=== PATIENT | male | born 1935 | race Caucasian/White ===

== ENCOUNTER → 2019-10-22 10:10 | Outpatient (BNVA) | payer MEDICARE, OTHER, SELFPAY | PROVIDERS: Family Provider Family Medicine; PCP Family Medicine; Visit Provider Urology | DX: N39.9 Disorder of urinary system, unspecified (principal); N48.1 Balanitis; N47.1 Phimosis | CPT/HCPCS: 81001 ==

== ENCOUNTER 2019-12-18 11:47 | Inpatient (IN) | payer MEDICARE, OTHER, SELFPAY ==
[2019-12-18] VITALS (11 sets, daily range): BP systolic 144–175; BP diastolic 70–105; PULSE 74–99; RESP 16–19; TEMP 36.8–37.2; O2SAT 88–98; BMI 31.1
--- NOTE | 2019-12-18 12:03 | ED_ITS ---
Entered by Olena Olivera, acting as scribe for Khushbu Mckeon HPI - General Adult General: Chief complaint: General Medical Stated complaint: SHINGLES/ CONFUSION Time Seen by Provider: 12/18/19 11:59 Source: patient and RN notes reviewed Mode of arrival: EMS Limitations: altered mental status History of Present Illness: HPI narrative: 84 yo male presents to ED with complaints of a painful rash on the L side of his face. The patient is confused stating he has been evaluated by Hailey Ruiz (with [facility]) for shingles and was prescribed an anti-viral medication. Upon called Ms Joseph's office, it was confirmed that the patient has never been seen there. I called Dr Harman's (with [facility]) office, they confirmed the patient is seen there and was last seen in October. They are faxing information. The patient was last seen at [facility] on 12.13.2019 for a headache with and per the notes, the patient did not have a rash at that time and he was not prescribed anything. The patient said he is here today due to pain associated with the rash on the L side of his face. The patient states his son and daughter wanted patient to come to ED to be evaluated for shingles - he thinks. The patient is afebrile at this time. MD complaint: confusion, rash on L side of face Onset (ago): unknown Location: face (rash on L side) Radiation: non-radiation Severity: severe Quality: aching Pain Consistency: constant Relieving factors: none Exacerbating factors: none Associated symptoms: Reports confusion; Deny chest pain, diaphoresis, dyspnea, malaise, nausea, palpitations, syncope or vomiting Review of Systems General: Reports: other (negative unless marked) Const: Denies: fever, chills, body aches, fatigue, malaise or diaphoresis Eyes: Denies: change in vision or blurry vision ENMT: Denies: throat pain, painful swallowing, hoarseness, ear pain, ear discharge, Change in hearing or nasal discharge Card: Denies: chest pain, palpitations, irregular heart rhythm, syncope, pre- syncope, shortness of breath on exertion or shortness of breath when lying down Resp: Denies: shortness of breath, productive cough, non-productive cough, wheezing, coughing up blood or chest congestion GI: Denies: abdominal pain, nausea, vomiting, vomiting blood, coffee grounds in vomit, diarrhea, constipation, cramping, blood in stool or black tarry stool : Denies: flank pain, difficulty urinating, painful urination, urinary frequency, urinary urgency, decreased urine ouput, urinary incontinence or blood in urine Musc: Denies: neck pain, back pain, extremity pain, extremity swelling, joint pain, joint swelling, joint warmth or joint stiffness Skin/Breast: Denies: skin tenderness or yellow skin Neuro: Reports: confusion Endo: Denies: excessive thirst, tired all the time, cold intolerance, excessive sweating, flushing or hot flashes Miah/Lymph: Denies: easy bruising, easy bleeding, petechiae or enlarged lymph nodes All/Imm: Denies: hives, throat swelling, tongue swelling, facial swelling or acute wheezing PFSH ED PFSH: Social History Smoking and tobacco status: former smoker Alcohol intake: never Adopted: No Caregiver/support person: No Lives independently: No Household members: spouse Marital status: Current occupational status: retired Physical Exam Const: COMMON NORMALS: no apparent distress, healthy appearing and well nourished GENERAL APPEARANCE: cooperative, well kempt and well developed ORIENTATION/CONSCIOUSNESS: Yes awake HENMT: COMMON NORMALS: normocephalic, head/scalp atraumatic, hearing grossly normal bilaterally, external ears normal, EAC's normal, external nose normal and moist oral mucous membranes HEAD & SCALP: normal to inspection, normocephalic and atraumatic FACE & SINUS: face symmetric NOSE: external nose normal and nares normal EXTERNAL EAR: Yes external ears normal EXTERNAL AUDITORY CANAL: EAC's normal MOUTH: oral and palatal mucosa normal and tongue normal Eye: COMMON NORMALS: PERRL, EOMs intact bilaterally and no scleral icterus GENERAL EYE: normal light reflex and other (Left eye with conjunctival injection. Fluorescein staining reveals no corneal uptake.) CONJUNCTIVA: Yes conjunctivae normal SCLERA: sclerae normal CORNEA: Yes corneas normal PUPIL: Yes PERRL DIRECT OPHTHALMOSCOPY: Yes normal light reflex Neck/C-Spine: COMMON NORMALS: full ROM, no lymphadenopathy, supple, no meningeal signs and no JVD GENERAL: Yes normal visual inspection and Yes trachea midline CERVICAL SPINE: Yes cervical ROM normal Chest: COMMONS NORMALS: inspection of chest normal and palpation of chest normal Resp: COMMON NORMALS: normal respiratory effort, no retractions, no use of accessory muscles and clear to auscultation bilaterally EFFORT & INSPECTION: Yes able to speak in complete sentences AUSCULTATION: clear to auscultation bilaterally Cardio: COMMON NORMALS: no JVD, regular rate, regular rhythm, S1 normal heart sound, S2 normal heart sound, no gallops, no clicks, no murmurs and no rub JUGULAR VENOUS DISTENTION: no JVD RATE: regular rate RHYTHM: regular rhythm HEART SOUNDS: S1 normal and S2 normal GI: COMMON NORMALS: soft to palpation, non-tender, no hepatosplenomegaly and no masses INSPECTION: Yes normal to inspection PALPATION: Yes soft and Yes no hepatosplenomegaly : COMMON NORMALS: Yes no CVA tenderness BLADDER/KIDNEY EXAM: Yes no CVA tenderness Back/Pelvis: COMMON NORMALS: no CVA tenderness, thoracic and lumbar spine normal to inspection, no thoracic nor lumbar tenderness and thoraco-lumbar ROM normal Extremity: COMMON NORMALS: normal to inspection, full ROM, normal capillary refill, no joint enlargement, no clubbing, cyanosis or edema and no calf tenderness Neuro: COMMON NORMALS: CN's II-XII intact bilaterally, moves all extremities, no focal motor deficits and no sensory deficits noted MENINGEAL SIGNS: Yes no meningeal signs Psych: APPEARANCE: Yes well kempt Skin: COMMON NORMALS: skin turgor normal, no jaundice, no petechiae and no mottling GENERAL SKIN EXAM: turgor normal RASHES: rashes noted (Shingles type rash noted to first trigeminal dermatome of the left side of the face.) Procedures Lumbar Puncture Patient Position: upright Skin Prep: Povidone-Iodine 1% Local Anesthetic: lidocaine 1% and with epi Amount of anesthesia used (mL): 5 Spinal Needle Gauge: 20G Interspace Used: L4-L5 Complications: unable to obtain CSF Course Vital Signs: Vital signs: Vital Signs Temperature 98.3 F 12/18/19 11:52 Pulse Rate 74 12/18/19 17:44 Respiratory Rate 18 12/18/19 17:44 Blood Pressure 163/105 12/18/19 17:44 Pulse Oximetry 98 12/18/19 17:44 MDM - General Adult MDM Narrative: Medical decision making narrative: The case was reviewed in its completeness with Dr. Ellison. He agrees with admission for coverage of viral encephalitis as well as meningitis with antimicrobials. The patient is clinically stable. I will go ahead and admit the patient to the floor. Lab Data: Labs: Lab Results 12/18/19 12/18/19 12/18/19 Range/Units 12:41 12:55 12:55 WBC 12.8 H (4.0-10.0) 10^3/ uL RBC 4.43 (4.1-5.3) 10^6/u L Hgb 12.9 (11.7-16.6) g/dL Hct 40.4 L (42.0-52.0) % MCV 91.2 (80-94) fL MCH 29.1 (28.0-34.0) pg MCHC 31.9 (30.0-36.0) g/dL RDW 13.2 (12.1-15.1) % Plt Count 342 (130-400) 10^3/c mm MPV 9.6 (7.4-10.4) fL Neut % (Auto) 65.6 % Lymph % (Auto) 20.8 % Eagle % (Auto) 12.2 % Eos % (Auto) 0.2 % Baso % (Auto) 0.9 % Neut # (Auto) 8.4 H (1.8-7.7) 10^3/u L Lymph # (Auto) 2.7 (0.8-4.8) 10^3/u L Eagle # (Auto) 1.6 H (0.2-0.9) 10^3/u L Eos # (Auto) 0.0 (0.0-0.8) 10^3/u L Baso # (Auto) 0.1 (0.0-0.1) 10^3/u L Nucleated RBC % (a uto) 0 % Nucleated RBCs # 0.0 /100WBC PT (10.5-13.3) SECO NDS INR (0.8-1.2) APTT (23.9-36.7) SECO NDS Sodium 128 L (136-145) mmol/L Potassium 3.7 (3.5-5.1) mmol/L Chloride 91 L (98-107) mmol/L Carbon Dioxide 23 (22-29) mmol/L Anion Gap 17.7 (5-19) BUN 23 (8-23) mg/dL Creatinine 1.0 (0.7-1.2) mg/dL Glucose 167 H (65-115) mg/dL Calculated Osmolal ity 267 L (285-295) mOsm/k g Lactic Acid (0.5-2.2) mmol/L Calcium 8.8 (8.5-10.5) mg/dL Total Bilirubin 0.3 (0.15-1.2) mg/dL AST 60 H (0-40) U/L ALT 22 (0-41) U/L Alkaline Phosphata se 61 (40-130) IU/L Troponin T Baselin e (0-15) ng/mL Troponin T 120 Min [place] (0-15) ng/mL Delta Troponin T (0-10) ABS# Total Protein 7.1 (6.6-8.7) g/dL Albumin 3.3 L (3.5-5.2) g/dL Globulin 3.8 (1.3-4.6) g/dL CSF Appearance (CLEAR) CSF Color (COLORLESS) CSF WBC (0-5) /uL CSF RBC (0-0) 10^3/uL CSF Mononuclear # Auto (50-90) 10^3/uL CSF Mononuclear WB Cs % (50-90) % CSF Polynuclear WB Cs # (0-10) 10^3/uL CSF Polynuclear WB Cs % (0-10) % CSF Diff Comment CSF Glucose (40-70) mg/dL Influenza Type A A g Negative (Negative) POC Influenza B Ag Negative (Negative) 12/18/19 12/18/19 12/18/19 Range/Units 12:55 12:55 13:13 WBC (4.0-10.0) 10^3/ uL RBC (4.1-5.3) 10^6/u L Hgb (11.7-16.6) g/dL Hct (42.0-52.0) % MCV (80-94) fL MCH (28.0-34.0) pg MCHC (30.0-36.0) g/dL RDW (12.1-15.1) % Plt Count (130-400) 10^3/c mm MPV (7.4-10.4) fL Neut % (Auto) % Lymph % (Auto) % Eagle % (Auto) % Eos % (Auto) % Baso % (Auto) % Neut # (Auto) (1.8-7.7) 10^3/u L Lymph # (Auto) (0.8-4.8) 10^3/u L Eagle # (Auto) (0.2-0.9) 10^3/u L Eos # (Auto) (0.0-0.8) 10^3/u L Baso # (Auto) (0.0-0.1) 10^3/u L Nucleated RBC % (a uto) % Nucleated RBCs # /100WBC PT 15.00 H (10.5-13.3) SECO NDS INR 1.15 (0.8-1.2) APTT 31.8 (23.9-36.7) SECO NDS Sodium (136-145) mmol/L Potassium (3.5-5.1) mmol/L Chloride (98-107) mmol/L Carbon Dioxide (22-29) mmol/L Anion Gap (5-19) BUN (8-23) mg/dL Creatinine (0.7-1.2) mg/dL Glucose (65-115) mg/dL Calculated Osmolal ity (285-295) mOsm/k g Lactic Acid 1.6 (0.5-2.2) mmol/L Calcium (8.5-10.5) mg/dL Total Bilirubin (0.15-1.2) mg/dL AST (0-40) U/L ALT (0-41) U/L Alkaline Phosphata se (40-130) IU/L Troponin T Baselin e 28 H (0-15) ng/mL Troponin T 120 Min [place] (0-15) ng/mL Delta Troponin T (0-10) ABS# Total Protein (6.6-8.7) g/dL Albumin (3.5-5.2) g/dL Globulin (1.3-4.6) g/dL CSF Appearance (CLEAR) CSF Color (COLORLESS) CSF WBC (0-5) /uL CSF RBC (0-0) 10^3/uL CSF Mononuclear # Auto (50-90) 10^3/uL CSF Mononuclear WB Cs % (50-90) % CSF Polynuclear WB Cs # (0-10) 10^3/uL CSF Polynuclear WB Cs % (0-10) % CSF Diff Comment CSF Glucose (40-70) mg/dL Influenza Type A A g (Negative) POC Influenza B Ag (Negative) 12/18/19 12/18/19 12/18/19 Range/Units 16:07 16:09 16:42 WBC (4.0-10.0) 10^3/ uL RBC (4.1-5.3) 10^6/u L Hgb (11.7-16.6) g/dL Hct (42.0-52.0) % MCV (80-94) fL MCH (28.0-34.0) pg MCHC (30.0-36.0) g/dL RDW (12.1-15.1) % Plt Count (130-400) 10^3/c mm MPV (7.4-10.4) fL Neut % (Auto) % Lymph % (Auto) % Eagle % (Auto) % Eos % (Auto) % Baso % (Auto) % Neut # (Auto) (1.8-7.7) 10^3/u L Lymph # (Auto) (0.8-4.8) 10^3/u L Eagle # (Auto) (0.2-0.9) 10^3/u L Eos # (Auto) (0.0-0.8) 10^3/u L Baso # (Auto) (0.0-0.1) 10^3/u L Nucleated RBC % (a uto) % Nucleated RBCs # /100WBC PT (10.5-13.3) SECO NDS INR (0.8-1.2) APTT (23.9-36.7) SECO NDS Sodium (136-145) mmol/L Potassium (3.5-5.1) mmol/L Chloride (98-107) mmol/L Carbon Dioxide (22-29) mmol/L Anion Gap (5-19) BUN (8-23) mg/dL Creatinine (0.7-1.2) mg/dL Glucose (65-115) mg/dL Calculated Osmolal ity (285-295) mOsm/k g Lactic Acid (0.5-2.2) mmol/L Calcium (8.5-10.5) mg/dL Total Bilirubin (0.15-1.2) mg/dL AST (0-40) U/L ALT (0-41) U/L Alkaline Phosphata se (40-130) IU/L Troponin T Baselin e (0-15) ng/mL Troponin T 120 Min [place] 28.73 H (0-15) ng/mL Delta Troponin T 0.73 (0-10) ABS# Total Protein (6.6-8.7) g/dL Albumin (3.5-5.2) g/dL Globulin (1.3-4.6) g/dL CSF Appearance Clear Clear (CLEAR) CSF Color Xanthocromic Colorless (COLORLESS) CSF WBC 293 H 274 H (0-5) /uL CSF RBC 0 0 (0-0) 10^3/uL CSF Mononuclear # Auto 0.288 L 0.271 L (50-90) 10^3/uL CSF Mononuclear WB Cs % 98 H 99 H (50-90) % CSF Polynuclear WB Cs # 0.005 0.003 (0-10) 10^3/uL CSF Polynuclear WB Cs % 2 1 (0-10) % CSF Diff Comment Yes Yes CSF Glucose 83 H (40-70) mg/dL Influenza Type A A g (Negative) POC Influenza B Ag (Negative) Imaging Data^: CXR: Radiologist's impression: [place] [address] XRay Report Signed Patient: Bud Ivy #: [id number] : 5Acct#:[id number] Age/Sex: 84 / MADM Date: 12/18/19 Loc: ERRoom/Bed: Attending Dr: Ordering Provider/Ordering MD: Khushbu Mckeon DO Date of Service: 12/18/19 Procedure(s): XR chest 1V portable [id number] Accession Number(s): [id number] Report Number: [id number] WS: [id number] PORTABLE CHEST HISTORY: cough COMPARISON: None available. Mild emphysema. No pneumonia. No pleural effusion or pneumothorax. Cardiac size: Mildly enlarged cardiac silhouette. Mediastinum/Aorta: Ectatic partially calcified aorta. No osseous abnormality seen. XR/XR chest 1V portable [id number] IMPRESSION: Chronic emphysema with partially calcified aorta. Dictated By:Alley Diaz DO Signed By:Alley Diaz DOSigned Date/Time:12/18/19 CT Head: Radiologist's impression: [facility] [address] [place] [address] CT Scan Report Signed Patient: Bud Ivy #: [id number] : 5Acct#:[id number] Age/Sex: 84 / MADM Date: 12/18/19 Loc: ERRoom/Bed: Attending Dr: Ordering Provider/Ordering MD: Khushbu Mckeon DO Date of Service: 12/18/19 Procedure(s): CT head wo con* [id number] Accession Number(s): [id number] Report Number: [id number] WS: [id number] CT HEAD NONCONTRAST HISTORY: CONDE/AMS TECHNIQUE: Contiguous axial imaging performed through the brain in 2.5 mm imaging. Bone and soft tissue windows. Sagittal and coronal reformats reviewed. All CT scans at [facility] use at least one of these dose optimization techniques: automated exposure control; mA and/or kV adjustment per patient size (includes targeted exams where dose is matched to clinical indication); or iterative reconstruction. DLP: 888.04 mGy.cm COMPARISON: None available. No acute intracranial hemorrhage, midline shift or mass effect. Moderate atrophy and chronic ischemic disease. No evidence for an infarct. Walsh- white matter differentiation remains normal. Bilateral mild cerebellar atrophy. Ventricles: Normal size with no hydrocephalus. There are small filling defects in the RIGHT transverse sinus. These may be arachnoid granulations. Partial thrombus may appear similar. The remaining dural venous sinuses are normally attenuated. Paranasal sinuses: Mild mucoperiosteal thickening in the ethmoid air cells. No air-fluid levels. Marked deviation of the nasal septum to the LEFT. Mastoid air cells: Well pneumatized. Calvarium and scalp: Skull is intact with no soft tissue edema or swelling. CT/CT head wo con* [id number] IMPRESSION: 1. Cerebral atrophy and chronic ischemic disease. 2. Small filling defects in the RIGHT transverse sinus. There is no evidence for a venous infarct. Filling defects may be thrombosis or arachnoid granulations. For further evaluation CT venous angiogram can be obtained. Dictated By:Alley Diaz DO Signed By:Alley Diaz DOSigned Date/Time:12/18/[address]: Radiologist's impression: [facility] [address] [place] [address] CT Scan Report Signed Patient: Bud Ivy #: [id number] : 5Acct#:[id number] Age/Sex: 84 / MADM Date: 12/18/19 Loc: ERRoom/Bed: Attending Dr: Ordering Provider/Ordering MD: Khushbu Mckeon DO Date of Service: 12/18/19 Procedure(s): CT angio headneck* [id number] Accession Number(s): [id number] Report Number: [id number] WS: [id number] CT ANGIOGRAM CEREBRAL (arteries and veins) AND CAROTID ARTERIES HISTORY: HEADACHE TECHNIQUE: CT angiogram is performed of the carotid and cerebral arteries. During arterial injection imaging is obtained from the skull vertex to the aortic arch in 1.25 mm imaging. Coronal and sagittal reformats are submitted. Additional multi planar reformats of the carotid and cerebral arteries are submitted, MIP imaging also reviewed. NASCET criteria utilized. All CT scans at [facility] use at least one of these dose optimization techniques: au tomated exposure control; mA and/or kV adjustment per patient size (includes targeted exams where dose is matched to clinical indication); or iterative reconstruction. CONTRAST: Omnipaque 350; 95 mL IV. DLP: 2307.66 mGy.cm COMPARISON: Noncontrast CT head 12/18/2019 Carotid Angiogram: Right carotid: Common carotid artery: Arises normally from the innominate artery. No significant plaque or stenosis. Internal carotid artery: Mild calcified plaque at the bifurcation. Mild intimal thickening. External carotid artery: Patent. Left carotid: Common carotid artery: Arises normally from the aorta. No significant plaque or stenosis. Internal carotid artery: Moderate calcified plaque at the bifurcation. External carotid artery: Patent. Right vertebral artery: Unremarkable. Left vertebral artery: Very small caliber LEFT vertebral artery. LEFT vertebral artery does arise from the aortic arch. Subclavian arteries: No stenosis or significant abnormality. Upper thorax: Mild pleural thickening at the RIGHT apex. Dilatation of the upper esophagus. Thyroid gland: Normal. Osseous structures: Advanced degenerative changes in the cervical spine. CEREBRAL ANGIOGRAM: Intracranial vertebral arteries: Small caliber distal LEFT vertebral artery. Basilar artery is intact. Basilar artery: No significant stenosis or occlusion. No aneurysm. Intracranial Internal carotid arteries: Mild calcified plaque. Middle cerebral arteries: Normal. Anterior cerebral arteries and ACOM: Normal. Posterior cerebral arteries and PCOM's: Normal. Good enhancement of the dural venous sinuses. The well-rounded filling defects noted in the RIGHT transverse sinus are consistent with arachnoid granulations. There are additional filling defects in the LEFT transverse sinus from arachnoid granulations. No deep venous thrombosis. Mastoid air cells: Normal. Paranasal sinuses: Normal. Calvarium: Normal. CT/CT angio headneck* [id number] IMPRESSION: 1. 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 No deep venous thrombosis. 2. No significant carotid artery stenosis. Small amount of calcified plaque at the bifurcations. 3. Unremarkable robinson of Oliveira. 4. Small caliber LEFT vertebral artery arises from the aortic arch. Dictated By:Alley Diaz DO Signed By:Alley Diaz DOSigned Date/Time:12/18/19 Other Imaging: Radiologist's impression: [address] [place] [address] Fluoroscopy Report Signed Patient: Bud Ivy #: [id number] : 5Acct#:[id number] Age/Sex: 84 / MADM Date: 12/18/19 Loc: ERRoom/Bed: Attending Dr: Ordering Provider/Ordering MD: Khushbu Mckeon DO Date of Service: 12/18/19 Procedure(s): FL guided lumbarpuncture [id number] Accession Number(s): [id number] Report Number: [id number] WS: [id number] LUMBAR PUNCTURE UNDER FLUOROSCOPY: OBTAIN CSF FOR ANALYSIS HISTORY: AMS COMPARISON: None available. FLUOROSCOPY TIME: 0.5 minutes. Procedure, complications, and risk and benefits explained to the patient. Consent was obtained. Recent laboratory work and medication are reviewed prior to procedure. Skin over the lumbar is cleansed with ChloraPrep and anesthetized with 1% buffered lidocaine. Access into the thecal sac is achieved. CSF is removed in a sterile manner and placed in the sterile tubes. Approximately 12 ml is removed without difficulty. No complications are encountered. CSF this into the laboratory for analysis as requested. FL/FL guided lumbarpuncture [id number] IMPRESSION: Uncomplicated lumbar puncture for CSF. CSF set for analysis as requested by Dr. Mckeon Dictated By:Alley Diaz DO Signed By:Alley Diaz DOSigned Date/Time:12/18/19 Discharge Plan Discharge Patient Disposition: Admitted As Inpatient Clinical Impression: Encephalitis Condition: Stable Prescriptions: No Action lidocaine (PF) 10 mg/mL (1 %) solution 6 ml SUBCUT ONCE Qty: 1 RF: 0 glimepiride 1 mg tablet 1 mg PO QDAY RF: 0 metformin 500 mg tablet 500 mg PO BID RF: 0 alprazolam 0.5 mg tablet 0.5 mg PO .prn RF: 0 docusate sodium [Stool Softener] 100 mg capsule 100 mg PO QDAY RF: 0 venlafaxine 37.5 mg tablet 37.5 mg PO QDAY RF: 0 atorvastatin 20 mg tablet 20 mg PO QDAY RF: 0 zolpidem [Ambien] 5 mg tablet 5 mg PO .COMPLEX RF: 0 hydrocodone-acetaminophen 10-325 mg tablet 1 tab PO .prn RF: 0 Restasis MultiDose 0.05 % drops 1 drop ophthalmic (eye) QDAY RF: 0 nystatin 100,000 unit/gram cream 1 applic TOPICAL .prn RF: 0 oxybutynin chloride 15 mg tablet extended release 24hr 15 mg PO QDAY Qty: 30 RF: 2 Referrals: Shamika Harman DO [Primary Care Provider] - Coding Level of Care Code ED [employer] for Chg Fwd Exam Comprehensive The documentation recorded by the Jarod berkowitz Valerie R, accurately reflects the service I personally performed and the decisions made by Linda dietz Eli N Dec 18, 2019 11:47
--- NOTE | 2019-12-18 12:09 | XR_ITS ---
WS: [id number] PORTABLE CHEST HISTORY: cough COMPARISON: None available. Mild emphysema. No pneumonia. No pleural effusion or pneumothorax. Cardiac size: Mildly enlarged cardiac silhouette. Mediastinum/Aorta: Ectatic partially calcified aorta. No osseous abnormality seen. XR/XR chest 1V portable [id number] IMPRESSION: Chronic emphysema with partially calcified aorta.
--- NOTE | 2019-12-18 12:10 | ECG_ITS ---
Measurements Intervals [place] Rate: 85 P: 33 WA: 160 QRS: 7 QRSD: 142 T: 23 QT: 410 QTc: 490 SINUS RHYTHM POSSIBLE LEFT ATRIAL ENLARGEMENT [-0.1mV P WAVE IN V1/V2] RIGHT BUNDLE BRANCH BLOCK [120+ ms QRS DURATION, UPRIGHT V1, 40+ ms S IN I/aVL/V4/V5/V6] No previous ECG available for comparison Electronically Signed On 12-19-2019 9:40:16 CDT by Teagan Andersen M.D. [email or web address]
--- NOTE | 2019-12-18 12:10 | CT_ITS ---
WS: [id number] CT HEAD NONCONTRAST HISTORY: CONDE/AMS TECHNIQUE: Contiguous axial imaging performed through the brain in 2.5 mm imaging. Bone and soft tiss ue windows. Sagittal and coronal reformats reviewed. All CT scans at [facility] use at ast one of these dose optimization techniques: automated exposure control; mA and/or kV adjustment pe r patient size (includes targeted exams where dose is matched to clinical indication); or iterative r econstruction. DLP: 888.04 mGy.cm COMPARISON: None available. No acute intracranial hemorrhage, midline shift or mass effect. Moderate atrophy and chronic ischemic disease. No evidence for an infarct. Walsh-white matter differen tiation remains normal. Bilateral mild cerebellar atrophy. Ventricles: Normal size with no hydrocephalus. There are small filling defects in the RIGHT transverse sinus. These may be arachnoid granulations. P artial thrombus may appear similar. The remaining dural venous sinuses are normally attenuated. Paranasal sinuses: Mild mucoperiosteal thickening in the ethmoid air cells. No air-fluid levels. Alex ed deviation of the nasal septum to the LEFT. Mastoid air cells: Well pneumatized. Calvarium and scalp: Skull is intact with no soft tissue edema or swelling. CT/CT head wo con* [id number] IMPRESSION: 1. Cerebral atrophy and chronic ischemic disease. 2. Small filling defects in the RIGHT transverse sinus. There is no evidence f or a venous infarct. Filling defects may be thrombosis or arachnoid granulation s. For further evaluation CT venous angiogram can be obtained.
[2019-12-18] MEDS: sodium chloride 0.9% 1,000 ML 100 ML IV (12:18)
--- NOTE | 2019-12-18 12:53 | CT_ITS ---
WS: [id number] CT ANGIOGRAM CEREBRAL (arteries and veins) AND CAROTID ARTERIES HISTORY: HEADACHE TECHNIQUE: CT angiogram is performed of the carotid and cerebral arteries. During arterial injection imaging is obtained from the skull vertex to the aortic arch in 1.25 mm imaging. Coronal and sagittal reformats are submitted. Additional multi planar reformats of the carotid and cerebral arteries are submitted, MIP imaging also reviewed. NASCET criteria utilized. All CT scans at [facility] use at least one of these dose optimization techniques: automated exposure control; mA and/or kV ad justment per patient size (includes targeted exams where dose is matched to clinical indication); or iterative reconstruction. CONTRAST: Omnipaque 350; 95 mL IV. DLP: 2307.66 mGy.cm COMPARISON: Noncontrast CT head 12/18/2019 Carotid Angiogram: Right carotid: Common carotid artery: Arises normally from the innominate artery. No significant plaque or stenosis. Internal carotid artery: Mild calcified plaque at the bifurcation. Mild intimal thickening. External carotid artery: Patent. Left carotid: Common carotid artery: Arises normally from the aorta. No significant plaque or stenosis. Internal carotid artery: Moderate calcified plaque at the bifurcation. External carotid artery: Patent. Right vertebral artery: Unremarkable. Left vertebral artery: Very small caliber LEFT vertebral artery. LEFT vertebral artery does arise fro m the aortic arch. Subclavian arteries: No stenosis or significant abnormality. Upper thorax: Mild pleural thickening at the RIGHT apex. Dilatation of the upper esophagus. Thyroid gland: Normal. Osseous structures: Advanced degenerative changes in the cervical spine. CEREBRAL ANGIOGRAM: Intracranial vertebral arteries: Small caliber distal LEFT vertebral artery. Basilar artery is intact . Basilar artery: No significant stenosis or occlusion. No aneurysm. Intracranial Internal carotid arteries: Mild calcified plaque. Middle cerebral arteries: Normal. Anterior cerebral arteries and ACOM: Normal. Posterior cerebral arteries and PCOM's: Normal. Good enhancement of the dural venous sinuses. The well-rounded filling defects noted in the RIGHT tra nsverse sinus are consistent with arachnoid granulations. There are additional filling defects in the LEFT transverse sinus from arachnoid granulations. No deep venous thrombosis. Mastoid air cells: Normal. Paranasal sinuses: Normal. Calvarium: Normal. CT/CT angio headneck* [id number] IMPRESSION: 1. Bilateral filling defects in the transverse sinuses consistent with arachno id granulations. No deep venous thrombosis. 2. No significant carotid artery stenosis. Small amount of calcified plaque a t the bifurcations. 3. Unremarkable crooked [place] of [place]. 4. Small caliber LEFT vertebral artery arises from the aortic arch.
[2019-12-18 13:07] LABS: Basophils # 0.1 10^3/uL (0.0-0.1); Basophils % 0.9 %; Eosinophils % 0.2 %; Hematocrit 40.4 % (42.0-52.0); Hemoglobin 12.9 g/dL (11.7-16.6); Lymphocytes # 2.7 10^3/uL (0.8-4.8); Lymphocytes % 20.8 %; Mean Corpuscular HGB Conc 31.9 g/dL (30.0-36.0); Mean Corpuscular Hemoglobin 29.1 pg (28.0-34.0); Mean Corpuscular Volume 91.2 fL (80-94); Mean Platelet Volume 9.6 fL (7.4-10.4); Monocytes # 1.6 10^3/uL (0.2-0.9); Monocytes % 12.2 %; Neutrophils # 8.4 10^3/uL (1.8-7.7); Neutrophils % 65.6 %; Nucleated Red Blood Cells % 0 %; Platelet Count 342 10^3/cmm (130-400); Red Blood Count 4.43 10^6/uL (4.1-5.3); Red Cell Distribution Width 13.2 % (12.1-15.1); White Blood Count 12.8 10^3/uL (4.0-10.0)
[2019-12-18 13:10] LABS: Influenza A by IFA Negative (Negative); Influenza B by IFA Negative (Negative)
[2019-12-18 13:22] LABS: Alanine Aminotransferase 22 U/L (0-41); Albumin Level 3.3 g/dL (3.5-5.2); Alkaline Phosphatase 61 IU/L (40-130); Anion Gap 17.7 (5-19); Aspartate Amino Transferase 60 U/L (0-40); Blood Urea Nitrogen 23 mg/dL (8-23); Calcium 8.8 mg/dL (8.5-10.5); Carbon Dioxide 23 mmol/L (22-29); Chloride 91 mmol/L (98-107); Creatinine Clr Calc Pharmacy 68.6703; Globulin 3.8 g/dL (1.3-4.6); Glucose 167 mg/dL (65-115); Osmolality Calculated 267 mOsm/kg (285-295); Potassium 3.7 mmol/L (3.5-5.1); Sodium 128 mmol/L (136-145); Total Bilirubin 0.3 mg/dL (0.15-1.2); Total Protein 7.1 g/dL (6.6-8.7)
[2019-12-18 13:23] LABS: Lactic Sepsis W/Reflex 1.6 mmol/L (0.5-2.2)
[2019-12-18] MEDS: iohexol 350 mg/mL 100 mL Btl IV (13:43)
[2019-12-18] MEDS: fluorescein 1 mg Strip EYE-LEFT (13:53)
[2019-12-18 13:54] LABS: INR 1.15 (0.8-1.2); Partial Thromboplastin Time 31.8 SECONDS (23.9-36.7)
[2019-12-18] MEDS: eye irrigation 30 mL Btl EYE-BOTH (13:54)
--- NOTE | 2019-12-18 14:42 | FL_ITS ---
WS: [id number] LUMBAR PUNCTURE UNDER FLUOROSCOPY: OBTAIN CSF FOR ANALYSIS HISTORY: AMS COMPARISON: None available. FLUOROSCOPY TIME: 0.5 minutes. Procedure, complications, and risk and benefits explained to the patient. Consent was obtained. Recen t laboratory work and medication are reviewed prior to procedure. Skin over the lumbar is cleansed with ChloraPrep and anesthetized with 1% buffered lidocaine. Access into the thecal sac is achieved. CSF is removed in a sterile manner and placed in the sterile tubes. Approximately 12 ml is removed without difficulty. No complications are encountered. CSF this into the laboratory for analysis as requested. FL/FL guided lumbarpuncture [id number] IMPRESSION: Uncomplicated lumbar puncture for CSF. CSF set for analysis as requested by Dr. Mckeon
[2019-12-18] MEDS: morphine 4 mg/mL SDV 1 mL IVP ×2 (15:05→19:17)
[2019-12-18 16:51] LABS: Troponin(5th) Baseline 28 ng/mL (0-15)
[2019-12-18 17:04] LABS: Troponin 5 2HR 28.73 ng/mL (0-15); Troponin 5 2HR Delta 0.73 ABS# (0-10)
[2019-12-18 17:41] LABS: CSF Mononuclear # 0.271 10^3/uL (50-90); Glucose CSF 83 mg/dL (40-70); Mononuclear WBC CSF % 99 % (50-90); Polynuclear Cells ,CSF # 0.003 10^3/uL (0-10); Polynuclear WBC CSF % 1 % (0-10); Red Blood Cell CSF 0 10^3/uL (0-0)
[2019-12-18 17:45] LABS: CSF Mononuclear # 0.288 10^3/uL (50-90); Mononuclear WBC CSF % 98 % (50-90); Polynuclear Cells ,CSF # 0.005 10^3/uL (0-10); Polynuclear WBC CSF % 2 % (0-10); Red Blood Cell CSF 0 10^3/uL (0-0)
[2019-12-18 17:53] LABS: Appearance CSF CLEAR (CLEAR); White Blood Cell CSF 274 /uL (0-5)
[2019-12-18 17:54] LABS: Color CSF COLORLESS (COLORLESS); Pathology Referral Yes
[2019-12-18 17:55] LABS: Appearance CSF CLEAR (CLEAR); Color CSF XANTHOCROMIC (COLORLESS); Pathology Referral Yes; White Blood Cell CSF 293 /uL (0-5)
[2019-12-18 18:25] LABS: Bilirubin Urine Neg (NEGATIVE); Blood Urine 2+ (Negative); Glucose Urine UA Norm (Normal); Ketones Urine Negative (Negative); Leukocyte Esterase Urine Negative (Negative); Nitrate Urine Negative (Negative); Protein Urine Trace (Negative); RBC Urine 0-4 /hpf (0-2); Squamous Epithelial Cell Urine 0-4 (0-5); Urine Appearance Clear (CLEAR); Urine Color Yellow (Yellow); Urobilinogen Urine Norm (Negative); pH Urine 5 (5-7)
[2019-12-18 18:26] LABS: Bacteria Urine TRACE
--- NOTE | 2019-12-18 18:30 | ECG_ITS ---
Measurements Intervals Universal Rate: 89 P: 31 MD: 146 QRS: -4 QRSD: 150 T: 33 QT: 408 QTc: 497 SINUS RHYTHM WITH OCCASIONAL SUPRAVENTRICULAR AND VENTRICULAR PREMATURE COMPLEXES POSSIBLE LEFT ATRIAL ENLARGEMENT [-0.1mV P WAVE IN V1/V2] RIGHT BUNDLE BRANCH BLOCK [120+ ms QRS DURATION, UPRIGHT V1, 40+ ms S IN I/aVL/V4/V5/V6] No previous ECG available for comparison Electronically Signed On 12-19-2019 9:47:37 CDT by Teagan Andersen M.D. [id number]
--- NOTE | 2019-12-18 18:48 | PM.HP ---
Providers/Chief Complaint Primary Care Provider: Shamika Harman DO Chief Complaint: SHINGLES/ CONFUSION History of Present Illness Bud Ivy is a 84 year old male who presents to the emergency department with history of 5 days of some headache. Rash was noted about 3 days ago. He may have been started on antiviral medicine in the last several days. There was concern of confusion when coming into the emergency department. When I visited with the patient he denied any headache currently and stated he felt better as he had gotten to sleep a little bit. He reports he had not slept in 3 days. He reported he had a little bit of nausea and vomiting this morning x1. He denies any nausea currently. He denies any neck pain. Rashes tender. He denies any fever. No chills. He reports no problems with seeing out of his left eye. Review of Systems General: Reports: 10 or more systems reviewed and unremarkable except in HPI and below Const: Reports: change in appetite; Denies: fever or chills Eyes: Denies: change in vision ENMT: Reports: facial/sinus pain; Denies: throat pain or mouth pain Card: Denies: chest pain Resp: Denies: shortness of breath GI: Reports: nausea and vomiting; Denies: abdominal pain : Denies: flank pain Musc: Denies: neck pain Skin/Breast: Reports: rash Neuro: Reports: headache Psych: Reports: anxiety Endo: Denies: excessive urination Miah/Lymph: Denies: easy bruising All/Imm: Denies: hives Medications/Allergies Allergies Allergy/AdvReac Type Severity Reaction Status Date / Time clindamycin Allergy Unknown Verified 12/13/19 17:10 PFSH Acute PFSH: Medical History (Updated 12/18/19 @ 19:11 by Khoi Gonzalez MD) Anxiety Balanitis Balanitis circinata Chronic back pain Depression Diabetes mellitus type 2 in nonobese Hyperlipidemia Insomnia Lower urinary tract symptoms Phimosis Surgical History History of basal cell carcinoma excision REMOVED FROM HEAD History of circumcision History of hernia repair Status post repair of hydrocele Family History Father , AT AGE 73 RENAL FAILURE Chronic kidney disease (CKD) Mother , AT AGE 88 Chronic kidney disease (CKD) Social History Smoking and tobacco status: former smoker Alcohol intake: never Adopted: No Caregiver/support person: No Lives independently: No Household members: spouse Marital status: Current occupational status: retired Vitals/I&O/Wt Last Vital Signs Temp 98.3 F 12/18/19 11:52 Pulse 74 12/18/19 17:44 Resp 18 12/18/19 17:44 BP 163/105 12/18/19 17:44 Pulse Ox 98 12/18/19 17:44 Weight last 48 hrs Weight 104.326 kg Physical Exam Narrative: EXAM NARRATIVE: General exam is an elderly white male, who recognizes me when I enter the room. He seems somewhat anxious. HEENT: Extensive herpetic lesions noted in the left scalp, forehead, left upper cheek. Eye appears remarkably clear. Left lower jaw is clear. Neck is supple no lymphadenopathy or thyromegaly Cardiovascular regular rate and rhythm with occasional premature beat. 2/6 systolic murmur Lungs clear Abdomen is soft with positive bowel sounds. Obese. No obvious organomegaly demonstrates extensive tinea Extremities no cyanosis clubbing. Venous stasis changes noted. Some atrophy of the calves. Neurologic no obvious focal deficits. Does repeat himself quite often. But does appear to be alert and oriented. Data : 12/18/19 12:55 12/18/19 12:55 Other Labs: EKG demonstrates a sinus rhythm, left axis deviation, right bundle branch block and no real acute changes. AST 60 otherwise LFTs within normal limits. Troponin XX 8 with no significant delta. Urinalysis 5-10 white blood cells, 0-4 reds, trace bacteria. CSF with white blood cell count of 274, 99% monos. Glucose 83. Protein level pending. Influenza negative. CTA neck, CT angiogram demonstrates no significant flow-limiting stenosis Head CT without acute changes. Chest x-ray no infiltrate, calcified aorta Micro: Microbiology 12/18/19 16:08 Gram Stain - Final Cerebrospinal Fluid 12/18/19 12:45 Blood Culture - Preliminary Blood SPECIMEN COLLECTED 12/18/19 12:55 Blood Culture - Preliminary Blood SPECIMEN COLLECTED A&P Assessment and plan (1) Herpes zoster: Facial dermatome. Doubt Dany Chopra. No evidence of facial paralysis. 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 Status: Acute Code(s): B02.9 - Zoster without complications (2) Encephalitis: Significant pleocytosis, mononuclear consistent with viral encephalitis. Acyclovir initiated. Patient's neurologic symptoms of confusion, nausea and vomiting are already significantly better after hydration. Status: Acute Code(s): G04.90 - Encephalitis and encephalomyelitis, unspecified (3) Hyponatremia: Repeat BMP now Low-dose normal saline. Repeat BMP tomorrow. May have to discontinue saline if potassium drops further Status: Acute Code(s): E87.1 - Hypo-osmolality and hyponatremia (4) UTI (urinary tract infection): Urine culture Rocephin IV Status: Acute Code(s): N39.0 - Urinary tract infection, site not specified (5) Tinea: Nystatin cream as needed twice daily Status: Acute Code(s): B35.9 - Dermatophytosis, unspecified Additional A&P Information Type 2 diabetes. Sliding scale insulin. Chronic back pain. Continue as needed pain medication Depression continue Effexor Hyperlipidemia, continue statin Multiple other medical problems as outlined in past medical history Lovenox for DVT prophylaxis Full code Hydralazine as needed significant elevations in blood pressure Attestations Medical Necessity Statement*: Will need greater than 2 midnight stay for treatment of possible viral encephalitis, varicella-zoster Time Spent in Patient Care: Greater than 35 minutes Coding Level of Care Code Acute Pipe Organ Mechanic Apprentice for [facility] Fwd Diagnoses Herpes zoster B02.9 Encephalitis G04.90 Hyponatremia E87.1 UTI (urinary tract infection) N39.0 Tinea B35.9
[2019-12-18] MEDS: cefTRIAXone 2,000 MG in sodium chloride 0.9% (plus) 50 ML 100 MG IV (18:58)
[2019-12-18 19:39] LABS: Anion Gap 16.7 (5-19); Blood Urea Nitrogen 23 mg/dL (8-23); Calcium 8.4 mg/dL (8.5-10.5); Carbon Dioxide 23 mmol/L (22-29); Chloride 95 mmol/L (98-107); Glucose 141 mg/dL (65-115); Osmolality Calculated 271 mOsm/kg (285-295); Potassium 3.7 mmol/L (3.5-5.1); Sodium 131 mmol/L (136-145); Troponin 5 6HR 28.37 ng/mL (0-15); Troponin 5 6HR Delta 0.37 ng/L (0-12)
--- NOTE | 2019-12-18 20:07 | PC.NURSE ---
PT RETURNED FROM CT WITH A SKIN TEAR TO LEFT FOREARM, TECH STATED PT WAS INJURED IN CT POSSIBLY DURING TRANSFER. STERI STRIPS APPLIED TO SKIN TEAR LEFT FOREARM, EDGES APPROXIMATED. PT TOLERATED WELL.
--- NOTE | 2019-12-18 22:30 | ECG_ITS ---
Measurements Intervals [place] Rate: 83 P: 48 [place]: 160 QRS: -11 QRSD: 145 T: 33 QT: 402 QTc: 473 SINUS RHYTHM WITH OCCASIONAL SUPRAVENTRICULAR PREMATURE COMPLEXES POSSIBLE LEFT ATRIAL ENLARGEMENT [-0.1mV P WAVE IN V1/V2] RIGHT BUNDLE BRANCH BLOCK [120+ ms QRS DURATION, UPRIGHT V1, 40+ ms S IN I/aVL/V4/V5/V6] No previous ECG available for comparison Electronically Signed On 12-19-2019 9:46:05 CDT by Teagan Andersen M.D. [id number]
[2019-12-18] MEDS: enoxaparin 40 mg/0.4 mL Syringe SUBCUT (22:40)
[2019-12-18] MEDS: sodium chloride 0.9% 1,000 ML 50 ML IV (22:48)
[2019-12-18 22:49] LABS: Glucose Point of Care 127 mg/dL (70-110)
[2019-12-19] VITALS (9 sets, daily range): BP systolic 152–175; BP diastolic 71–78; PULSE 74–99; RESP 18–20; TEMP 36.7–37.3; O2SAT 92–94
[2019-12-19 05:41] LABS: Basophils # 0.1 10^3/uL (0.0-0.1); Basophils % 0.7 %; Eosinophils % 0.1 %; Hematocrit 37.8 % (42.0-52.0); Hemoglobin 12.4 g/dL (11.7-16.6); Lymphocytes # 2.2 10^3/uL (0.8-4.8); Lymphocytes % 16.9 %; Mean Corpuscular HGB Conc 32.8 g/dL (30.0-36.0); Mean Corpuscular Hemoglobin 29.4 pg (28.0-34.0); Mean Corpuscular Volume 89.6 fL (80-94); Mean Platelet Volume 9.7 fL (7.4-10.4); Monocytes # 1.4 10^3/uL (0.2-0.9); Monocytes % 10.4 %; Neutrophils # 9.2 10^3/uL (1.8-7.7); Neutrophils % 71.5 %; Nucleated Red Blood Cells % 0 %; Platelet Count 323 10^3/cmm (130-400); Red Blood Count 4.22 10^6/uL (4.1-5.3); Red Cell Distribution Width 13.6 % (12.1-15.1); White Blood Count 12.9 10^3/uL (4.0-10.0)
[2019-12-19 06:01] LABS: Anion Gap 16.3 (5-19); Blood Urea Nitrogen 21 mg/dL (8-23); Calcium 8.2 mg/dL (8.5-10.5); Carbon Dioxide 22 mmol/L (22-29); Chloride 96 mmol/L (98-107); Glucose 170 mg/dL (65-115); Osmolality Calculated 273 mOsm/kg (285-295); Potassium 3.3 mmol/L (3.5-5.1); Sodium 131 mmol/L (136-145)
[2019-12-19 06:12] LABS: Slide Review Slide Review Perform
[2019-12-19 06:41] LABS: Glucose Point of Care 152 mg/dL (70-110)
[2019-12-19] MEDS: docusate sodium 100 mg Capsule PO (09:25)
[2019-12-19] MEDS: atorvastatin 40 mg Tablet 20 MG PO (09:25)
[2019-12-19] MEDS: venlafaxine 75 mg Tablet 37.5 MG PO (09:25)
[2019-12-19] MEDS: nystatin cream 30 gm 1 APPLIC TOPICAL ×2 (09:26→18:01)
[2019-12-19 10:32] LABS: Glucose Point of Care 141 mg/dL (70-110)
[2019-12-19 11:23] LABS: Total Protein CSF 128 mg/dL (15-45)
--- NOTE | 2019-12-19 11:53 | PM.PN ---
Subjective Subjective: Interval history: Bud reports he is doing okay this morning. He denies any headache. No vomiting. He is able to eat some. He does admit to some confusion. I discussed his case with his daughter last night she reports he does have some underlying dementia as well. Medications: Reviewed: Yes Vitals/I&O/Wt Last Vital Signs Temp 98.4 F 12/19/19 09:00 Pulse 74 12/19/19 09:00 Resp 20 H 12/19/19 09:00 BP 171/72 12/19/19 09:00 Pulse Ox 92 12/19/19 08:00 12/18/19 12/19/19 12/19/19 22:59 06:59 14:59 Intake Total 500 / 500 270 / 770 360 / 360 Balance 500 / 500 270 / 770 360 / 360 Weight last 48 hrs Weight 104.326 kg Physical Exam Narrative: EXAM NARRATIVE: General exam no apparent distress and recognizes me as I enter the room HEENT: Extensive herpetic lesions noted in the left scalp, forehead, left upper cheek. Eye appears remarkably clear. Left lower jaw is clear. He is able to clearly see 2 fingers held in front of his left thigh. Note that the emergency physician did a fluorescein stain on his eye and there was no significant uptake indicating keratitis or corneal involvement Neck is supple no lymphadenopathy or thyromegaly Cardiovascular regular rate and rhythm with occasional premature beat. 2/6 systolic murmur Lungs clear Abdomen is soft with positive bowel sounds. Obese. No obvious organomegaly demonstrates extensive tinea Extremities no cyanosis clubbing. Venous stasis changes noted. Some atrophy of the calves. Neurologic: No focal deficits, but has some confusion. Data : 12/19/19 05:31 12/19/19 05:31 Micro: Microbiology 12/18/19 16:08 Gram Stain - Final Cerebrospinal Fluid 12/18/19 12:45 Blood Culture - Preliminary Blood SPECIMEN COLLECTED 12/18/19 12:55 Blood Culture - Preliminary Blood SPECIMEN COLLECTED A&P Assessment and plan (1) Herpes zoster: Facial dermatome. Doubt [place] Chopra. No evidence of facial paralysis. Secondary to concern of WINDOW TRIMMER symptoms, acyclovir IV has been started. Status: Acute Code(s): B02.9 - Zoster without complications (2) Encephalitis: Significant pleocytosis, mononuclear consistent with viral encephalitis or pleocytosis(aseptic meningitis) from varicella. Acyclovir was initiated. Patient's neurologic symptoms of confusion, nausea and vomiting are already significantly better after hydration before receiving any other treatment Status: Acute Code(s): G04.90 - Encephalitis and encephalomyelitis, unspecified (3) Hyponatremia: Sodium has improved Continue low-dose IV fluids Status: Acute Code(s): E87.1 - Hypo-osmolality and hyponatremia (4) UTI (urinary tract infection): Urine culture Continue Rocephin IV Status: Acute Code(s): N39.0 - Urinary tract infection, site not specified (5) Tinea: Nystatin cream as needed twice daily Status: Acute Code(s): B35.9 - Dermatophytosis, unspecified Additional A&P Information Hypokalemia, supplement type 2 diabetes. Sliding scale insulin. Chronic back pain. Continue as needed pain medication Depression continue Effexor Hyperlipidemia, continue statin Multiple other medical problems as outlined in past medical history Lovenox for DVT prophylaxis Full code Hydralazine as needed significant elevations in blood pressure Attestations Medical Necessity Statement*: Needs continued hospital stay for further IV acyclovir secondary to zoster with possible encephalitis Coding Level of Care Code Acute Cellular Biologist for [facility] Fwd Diagnoses Herpes zoster B02.9 Encephalitis G04.90 Hyponatremia E87.1 UTI (urinary tract infection) N39.0 Tinea B35.9
--- NOTE | 2019-12-19 12:06 | PC.CHAP ---
Pastoral Care Encounter/Spiritual Assessment Type of Contact [] Declined industrial safety and health specialist visit [] Patient/Family/Request visit [] Outpatient visit [] Follow-up visit [] Physician referral [] Code/Alert [] Routine visit [] Staff referral [] Actively dying [] Patient sleeping [] Family support [] [] Out of room [] Palliative care [] [] Receiving care in room [] Pre-surgical visit [] Trauma [] Long length of stay [] ICU visit [] Other: Relational/Emotional Strength [] Patient feels connected with others/family/visitors/staff [] Distress [] Loneliness/isolation [] Abandonment Spirituality of Patient [] Person of Elma [] Attends Latter-Day of their [place] [] Believes in Prayer [] Reads Bible or Restoration materials [] There are Spiritual issues to be addressed Router Machine Operator Interventions [] Prayer [] Active listening [] Non-anxious presence [] Spiritual/emotional support [] Crisis/trauma care [] Spiritual counseling [] Bereavement support [] Provided bereavement packet [] Provided Bible/devotional materials [] Provided toy/stuffed animal, coloring book to patient or family member [] Provided Communion [] Anointing/[place] [] Salvation [] Completed spiritual assessment [] Other: Impact on Illness or Injury [] Angry [] Fearful [] Anxious [] Often cries [] Exhaustion [] Unable to work [] Unable to attend church [] Unable to walk/stand [] Unable to read [] Unable to drive [] Unable to eat/drink [] Unable to sleep [] Unable to be with family [] Patient intubated [] Other: Summary PRECAUTIONS EXCEPTION Time spent with patient
[2019-12-19 17:39] LABS: Glucose Point of Care 139 mg/dL (70-110)
[2019-12-19] MEDS: ALPRAZolam 0.25 mg Tablet PO (18:02)
[2019-12-19] MEDS: cefTRIAXone 1,000 MG in sodium chloride 0.9% (plus) 50 ML 100 MG IV (20:19)
[2019-12-19] MEDS: enoxaparin 40 mg/0.4 mL Syringe SUBCUT (20:20)
[2019-12-19 22:13] LABS: Glucose Point of Care 167 mg/dL (70-110)
[2019-12-19] MEDS: sodium chloride 0.9% 1,000 ML 50 ML IV (22:22)
[2019-12-20 01:35] VITALS: BP 161/73; PULSE 98; RESP 20; TEMP 37.2; O2SAT 92
[2019-12-20 04:00] VITALS: BP 168/80; PULSE 96; RESP 20; TEMP 36.9; O2SAT 93
[2019-12-20 05:28] LABS: Basophils # 0.1 10^3/uL (0.0-0.1); Basophils % 0.7 %; Eosinophils # 0.1 10^3/uL (0.0-0.8); Eosinophils % 0.8 %; Hematocrit 36.3 % (42.0-52.0); Lymphocytes # 2.4 10^3/uL (0.8-4.8); Mean Corpuscular HGB Conc 33.1 g/dL (30.0-36.0); Mean Corpuscular Hemoglobin 29.8 pg (28.0-34.0); Mean Corpuscular Volume 90.1 fL (80-94); Mean Platelet Volume 9.9 fL (7.4-10.4); Monocytes # 1.1 10^3/uL (0.2-0.9); Neutrophils # 7.1 10^3/uL (1.8-7.7); Neutrophils % 65.9 %; Nucleated Red Blood Cells % 0 %; Platelet Count 324 10^3/cmm (130-400); Red Blood Count 4.03 10^6/uL (4.1-5.3); Red Cell Distribution Width 13.6 % (12.1-15.1); White Blood Count 10.7 10^3/uL (4.0-10.0)
[2019-12-20 05:46] LABS: Anion Gap 14.3 (5-19); Blood Urea Nitrogen 20 mg/dL (8-23); Calcium 8.4 mg/dL (8.5-10.5); Carbon Dioxide 24 mmol/L (22-29); Chloride 101 mmol/L (98-107); Glucose 153 mg/dL (65-115); Osmolality Calculated 282 mOsm/kg (285-295); Potassium 3.3 mmol/L (3.5-5.1); Sodium 136 mmol/L (136-145)
[2019-12-20 07:36] LABS: Glucose Point of Care 141 mg/dL (70-110)
[2019-12-20 08:00] VITALS: BP 172/80; PULSE 80; RESP 20; TEMP 36.8; O2SAT 95
[2019-12-20] MEDS: nystatin cream 30 gm 1 APPLIC TOPICAL ×2 (10:10→18:09)
[2019-12-20] MEDS: venlafaxine 75 mg Tablet 37.5 MG PO (10:10)
[2019-12-20] MEDS: docusate sodium 100 mg Capsule PO (10:10)
[2019-12-20] MEDS: atorvastatin 40 mg Tablet 20 MG PO (10:10)
[2019-12-20 12:00] VITALS: BP 167/73; PULSE 88; RESP 18; TEMP 36.8; O2SAT 96
--- NOTE | 2019-12-20 13:36 | P.PN_ITS ---
Subjective Subjective: Interval history: Bud reports he is feeling better. No headache. He did have some sundowning and confusion yesterday evening. Medications: Reviewed: Yes Vitals/I&O/Wt Last Vital Signs Temp 98.2 F 12/20/19 12:00 Pulse 88 12/20/19 12:00 Resp 18 12/20/19 12:00 BP 167/73 12/20/19 12:00 Pulse Ox 96 12/20/19 12:00 12/19/19 12/20/19 12/20/19 22:59 06:59 14:59 Intake Total 1370 / 2090 120 / 2210 360 / 360 Output Total 300 / 300 Balance 1370 / 2090 -180 / 1910 360 / 360 Physical Exam Narrative: EXAM NARRATIVE: General exam no apparent distress and recognizes me as I enter the room HEENT: Zoster appears to be scabbing Cardiovascular regular rate and rhythm with occasional premature beat. 2/6 systolic murmur Lungs clear Abdomen is soft with positive bowel sounds. Obese. No obvious organomegaly demonstrates extensive tinea Extremities no cyanosis clubbing. Venous stasis changes noted. Some atrophy of the calves. Neurologic: No focal deficits, but has some confusion. Data : 12/20/19 04:53 12/20/19 04:53 Micro: Microbiology 12/18/19 17:18 Urine Culture - Preliminary Urine,Clean Catch 12/18/19 16:08 Gram Stain - Final Cerebrospinal Fluid CSF Culture - Preliminary 12/18/19 12:45 Blood Culture - Preliminary Blood NEGATIVE TO DATE 12/18/19 12:55 Blood Culture - Preliminary Blood NEGATIVE TO DATE A&P Assessment and plan (1) Herpes zoster: Facial dermatome. Doubt Dany Chopra. No evidence of facial paralysis. 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 Overall he is improving significantly. However, he will require care home facility placement. I suspect he will be able to transition to acyclovir by mouth on discharge. Status: Acute Code(s): B02.9 - Zoster without complications (2) Encephalitis: Significant pleocytosis, mononuclear consistent with viral encephalitis or pleocytosis(aseptic meningitis) from varicella. Acyclovir was initiated. Patient's neurologic symptoms of confusion, nausea and vomiting are already significantly better after hydration before receiving any other treatment. A VZV PCR CSF was sent Status: Acute Code(s): G04.90 - Encephalitis and encephalomyelitis, unspecified (3) Hyponatremia: Sodium level has normalized Continue low-dose IV fluids Status: Acute Code(s): E87.1 - Hypo-osmolality and hyponatremia (4) UTI (urinary tract infection): Urine culture at this point probably contaminants Continue Rocephin IV Status: Acute Code(s): N39.0 - Urinary tract infection, site not specified (5) Tinea: Nystatin cream as needed twice daily Status: Acute Code(s): B35.9 - Dermatophytosis, unspecified Additional A&P Information Hypokalemia, supplement type 2 diabetes. Sliding scale insulin. Chronic back pain. Continue as needed pain medication Depression continue Effexor Hyperlipidemia, continue statin Multiple other medical problems as outlined in past medical history Lovenox for DVT prophylaxis Full code Hydralazine as needed significant elevations in blood pressure Needs care home facility placement Attestations Medical Necessity Statement*: Needs continued hospitalization for IV acyclovir secondary to herpes zoster with encephalopathy Coding Level of Care Code Acute Cardiopulmonary Technologist for [facility] Fwd Diagnoses Herpes zoster B02.9 Encephalitis G04.90 Hyponatremia E87.1 UTI (urinary tract infection) N39.0 Tinea B35.9
[2019-12-20 16:00] VITALS: BP 150/80; PULSE 78; RESP 18; TEMP 36.9; O2SAT 95
[2019-12-20 17:13] LABS: Glucose Point of Care 151 mg/dL (70-110)
[2019-12-20] MEDS: cefTRIAXone 1,000 MG in sodium chloride 0.9% (plus) 50 ML 100 MG IV (19:42)
[2019-12-20] MEDS: enoxaparin 40 mg/0.4 mL Syringe SUBCUT (19:43)
[2019-12-20] MEDS: sodium chloride 0.9% 1,000 ML 50 ML IV (19:47)
[2019-12-20 20:00] VITALS: BP 156/76; PULSE 86; RESP 17; TEMP 36.9; O2SAT 91
[2019-12-20] MEDS: HYDROcodone-acetaminophen 10-325 mg Tablet 1 TAB PO (20:59)
[2019-12-20] MEDS: ALPRAZolam 0.25 mg Tablet PO (21:00)
[2019-12-20 21:24] LABS: Glucose Point of Care 146 mg/dL (70-110)
[2019-12-21] VITALS (7 sets, daily range): BP systolic 162–190; BP diastolic 67–93; PULSE 84–106; RESP 16–20; TEMP 36.4–36.8; O2SAT 91–95
[2019-12-21] MEDS: OLANZapine 10 mg VIAL IM (01:55)
[2019-12-21 07:01] LABS: Glucose Point of Care 132 mg/dL (70-110)
[2019-12-21] MEDS: atorvastatin 40 mg Tablet 20 MG PO (09:40)
[2019-12-21] MEDS: docusate sodium 100 mg Capsule PO (09:40)
[2019-12-21] MEDS: venlafaxine 75 mg Tablet 37.5 MG PO (09:41)
[2019-12-21] MEDS: ALPRAZolam 0.25 mg Tablet PO (09:41)
[2019-12-21] MEDS: nystatin cream 30 gm 1 APPLIC TOPICAL ×2 (09:42→17:41)
--- NOTE | 2019-12-21 10:47 | PC.SOCIAL ---
IMM Update Pg 2 of IMM updated with patient. Copy provided.
--- NOTE | 2019-12-21 11:17 | PM.PN ---
Subjective Subjective: Interval history: Undergoing daily toileting when seen. No new complaints, however earlier reported by nursing that patient had been agitated, hard to conrol by 2 staff members> BP elevated to SBP 190s. Medications: Reviewed: Yes Vitals/I&O/Wt Last Vital Signs Temp 98.1 F 12/21/19 08:11 Pulse 98 12/21/19 08:11 Resp 16 12/21/19 08:11 BP 174/93 12/21/19 08:11 Pulse Ox 94 12/21/19 08:11 12/20/19 12/21/19 12/21/19 22:59 06:59 14:59 Intake Total 1120 / 1720 120 / 1840 120 / 120 Output Total 200 / 200 Balance 1120 / 1720 -80 / 1640 120 / 120 Physical Exam Narrative: EXAM NARRATIVE: GEN: Awake, no acute distress CVS: S1S2 N RS: CTA B/L except crackles over RUL Abd: Soft, nt/nd , bs+ STAFFING COORDINATOR: no focal motor neuro deficits Data : 12/20/19 04:53 12/20/19 04:53 Micro: Microbiology 12/18/19 16:08 Gram Stain - Final Cerebrospinal Fluid CSF Culture - Preliminary 12/18/19 17:18 Urine Culture - Final Urine,Clean Catch A&P Assessment and plan (1) Herpes zoster: Facial dermatome. Doubt Dany Chopra. No evidence of facial paralysis. Secondary to concern of STAFFING COORDINATOR symptoms, acyclovir IV has been started. Overall he is improving significantly. However, he will require alf facility placement. I suspect he will be able to transition to acyclovir by mouth on discharge. Status: Acute Code(s): B02.9 - Zoster without complications (2) Encephalitis: Significant pleocytosis, mononuclear consistent with viral encephalitis or pleocytosis(aseptic meningitis) from varicella. Acyclovir was initiated. Patient's neurologic symptoms of confusion, nausea and vomiting are already significantly better after hydration before receiving any other treatment. A VZV PCR CSF was sent Status: Acute Code(s): G04.90 - Encephalitis and encephalomyelitis, unspecified (3) Hyponatremia: Sodium level has normalized Continue low-dose IV fluids Status: Acute Code(s): E87.1 - Hypo-osmolality and hyponatremia (4) UTI (urinary tract infection): Urine culture at this point probably contaminants Continue Rocephin IV Status: Acute Code(s): N39.0 - Urinary tract infection, site not specified (5) Tinea: Nystatin cream as needed twice daily Status: Acute Code(s): B35.9 - Dermatophytosis, unspecified Additional A&P Information Hypokalemia, supplement type 2 diabetes. Sliding scale insulin. Chronic back pain. Continue as needed pain medication Depression continue Effexor Hyperlipidemia, continue statin Multiple other medical problems as outlined in past medical history Lovenox for DVT prophylaxis Full code Hydralazine as needed significant elevations in blood pressure. Start amlodipine 5mg po daily Needs alf facility placement Attestations Medical Necessity Statement*: awaiting optimization of blood pressure and AMS priro to discharge Coding Level of Care Code Acute Brass Pickler for [facility] Fwd Diagnoses Herpes zoster B02.9 Encephalitis G04.90 Hyponatremia E87.1 UTI (urinary tract infection) N39.0 Tinea B35.9
[2019-12-21] MEDS: haloperidol inj 5 mg/mL INJ 1 mL IM (12:06)
[2019-12-21] MEDS: amlodipine 5 mg Tablet PO (17:41)
[2019-12-21] MEDS: cefTRIAXone 1,000 MG in sodium chloride 0.9% (plus) 50 ML 100 MG IV (19:40)
[2019-12-21] MEDS: enoxaparin 40 mg/0.4 mL Syringe SUBCUT (19:40)
[2019-12-21 20:49] LABS: Glucose Point of Care 133 mg/dL (70-110)
[2019-12-21 20:49] LABS: Glucose Point of Care 140 mg/dL (70-110)
[2019-12-21] MEDS: sodium chloride 0.9% 1,000 ML 50 ML IV (22:43)
[2019-12-22] VITALS: BP 161/73; PULSE 94; RESP 20; TEMP 37.1; O2SAT 90
[2019-12-22 03:56] VITALS: BP 177/71; PULSE 99; RESP 20; TEMP 37.3; O2SAT 91
[2019-12-22 06:32] LABS: Glucose Point of Care 120 mg/dL (70-110)
[2019-12-22] MEDS: docusate sodium 100 mg Capsule PO (08:52)
[2019-12-22] MEDS: venlafaxine 75 mg Tablet 37.5 MG PO (08:52)
[2019-12-22] MEDS: atorvastatin 40 mg Tablet 20 MG PO (08:53)
[2019-12-22] MEDS: amlodipine 5 mg Tablet PO (08:53)
[2019-12-22] MEDS: nystatin cream 30 gm 1 APPLIC TOPICAL (08:53)
[2019-12-22 11:51] VITALS: BP 136/76; PULSE 97; RESP 20; TEMP 37.2; O2SAT 90
--- NOTE | 2019-12-22 12:12 | PM.PN ---
Subjective Subjective: Interval history: awake, confused. Per my assessment, he appeared to be confused, however on talking latre to the , she stated she had just had a conf call with patient and her kids and he was the closest to his baseline in recent days. Medications: Reviewed: Yes Vitals/I&O/Wt Last Vital Signs Temp 99.0 F 12/22/19 11:51 Pulse 97 12/22/19 11:51 Resp 20 H 12/22/19 11:51 BP 136/76 12/22/19 11:51 Pulse Ox 90 12/22/19 11:51 12/21/19 12/22/19 12/22/19 22:59 06:59 14:59 Intake Total 1170 / 1410 120 / 1530 240 / 240 Balance 1170 / 1410 120 / 1530 240 / 240 Physical Exam Narrative: EXAM NARRATIVE: GEN: Awake, no acute distress CVS: S1S2 N RS: CTA B/L Abd: Soft, nt/nd , bs+ SCANNING CLERK: no focal motor neuro deficits Data : 12/22/19 13:00 12/22/19 13:00 Micro: Microbiology 12/18/19 16:08 Gram Stain - Final Cerebrospinal Fluid CSF Culture - Final 12/18/19 17:18 Urine Culture - Final Urine,Clean Catch A&P Assessment and plan (1) Herpes zoster: Status: Acute (2) Encephalitis: Status: Acute (3) Hyponatremia: Sodium level has normalized Continue low-dose IV fluids Status: Acute (4) UTI (urinary tract infection): Status: Acute (5) Tinea: Nystatin cream as needed twice daily Status: Acute Additional A&P Information 84 year old male admitted on 12/17 with c/o rash over face and headache, first seen in [facility] on 12/12 for headache, no rash. Then presented to ER on 12/17 with zoster rash. 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 Currently on high dose iv ACV for the same. Mental status had started to improve, though with some intermittent confusion persisting. Also has undelrying dementia. 1. 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 Opthalmology consult VZV DNA pending from CSF Check CMP for close monitoring of renal function On IV ceftriaxone currently to avoid secondary cellulitis over face [place] for pain management Lesions mostly crusted over at this time, will contiue isolation over next 24 hrs and discontinue once all lesions crusted over. 2. Chronic scrotal irritation and erythema: previously diagnosed with candidiasis/tinea of the scrotum, [facility]. This has not helped thus far. will change to clotrimazole ointment, nystatin powder and interdry twice daily. If fails to improve, trial of po fluconazole, however after ACV course is completed to minimize polypharmacy. 3. Continue Effexor and xanax 4. Onychocryptosis left hallux toenail: s/p Doxycycline x 1month and mupirocin band aid Full code Anticipate discharge over the next 24-48 hrs as mental status improves and after ophthalmology assessment for zoster ophthalmicus Attestations Medical Necessity Statement*: mental status slowly improving, needs ophthal evaluation Coding Level of Care Code Acute Dragline Operator for [facility] Fwd Diagnoses Herpes zoster B02.9 Encephalitis G04.90 Hyponatremia E87.1 UTI (urinary tract infection) N39.0 Tinea B35.9
[2019-12-22 12:16] LABS: Glucose Point of Care 150 mg/dL (70-110)
[2019-12-22] MEDS: pantoprazole DR 40 mg Tablet PO (13:14)
[2019-12-22] MEDS: predniSONE 20 mg Tablet 80 MG PO (13:15)
[2019-12-22 13:28] LABS: Basophils # 0.1 10^3/uL (0.0-0.1); Basophils % 0.9 %; Eosinophils # 0.1 10^3/uL (0.0-0.8); Eosinophils % 0.9 %; Hematocrit 39.1 % (42.0-52.0); Hemoglobin 12.6 g/dL (11.7-16.6); Lymphocytes # 1.9 10^3/uL (0.8-4.8); Lymphocytes % 13.5 %; Mean Corpuscular HGB Conc 32.2 g/dL (30.0-36.0); Mean Corpuscular Hemoglobin 29.2 pg (28.0-34.0); Mean Corpuscular Volume 90.7 fL (80-94); Mean Platelet Volume 9.4 fL (7.4-10.4); Monocytes # 1.3 10^3/uL (0.2-0.9); Monocytes % 9.8 %; Neutrophils # 10.2 10^3/uL (1.8-7.7); Neutrophils % 74.3 %; Nucleated Red Blood Cells % 0 %; Platelet Count 394 10^3/cmm (130-400); Red Blood Count 4.31 10^6/uL (4.1-5.3); Red Cell Distribution Width 13.3 % (12.1-15.1); White Blood Count 13.7 10^3/uL (4.0-10.0)
[2019-12-22 13:48] LABS: Alanine Aminotransferase 23 U/L (0-41); Albumin Level 2.9 g/dL (3.5-5.2); Alkaline Phosphatase 55 IU/L (40-130); Anion Gap 19.3 (5-19); Aspartate Amino Transferase 35 U/L (0-40); Blood Urea Nitrogen 19 mg/dL (8-23); Calcium 8.4 mg/dL (8.5-10.5); Carbon Dioxide 21 mmol/L (22-29); Chloride 100 mmol/L (98-107); Globulin 3.8 g/dL (1.3-4.6); Glucose 212 mg/dL (65-115); Osmolality Calculated 287 mOsm/kg (285-295); Potassium 3.3 mmol/L (3.5-5.1); Sodium 137 mmol/L (136-145); Total Bilirubin 0.4 mg/dL (0.15-1.2); Total Protein 6.7 g/dL (6.6-8.7)
--- NOTE | 2019-12-22 15:11 | XR_ITS ---
WS: [id number] PORTABLE CHEST HISTORY: fever COMPARISON: 12/18/2019 Opacification in the LEFT lower lung field. Small bilateral pleural effusions. No pneumothorax. Cardiac size: Normal. Mediastinum/Aorta: Mild atherosclerosis aorta. No osseous abnormality seen. XR/XR chest 1V portable [id number] IMPRESSION: 1. New opacification in the LEFT lower lung field. Pneumonitis versus developi ng pneumonia. 2. Very small bilateral pleural effusions.
[2019-12-22 15:25] VITALS: BP 168/74; PULSE 100; RESP 22; TEMP 36.8; O2SAT 90
[2019-12-22 15:59] LABS: NT Pro B Type Natriuretic Pept 557 pg/mL (0-450)
[2019-12-22 16:42] LABS: Glucose Point of Care 159 mg/dL (70-110)
[2019-12-22] MEDS: nystatin powder 15 gm Btl 1 APPLIC TOPICAL (17:18)
[2019-12-22] MEDS: clotrimazole 1% cream 30 gm 1 APPLIC TOPICAL (17:18)
[2019-12-22] MEDS: cefTRIAXone 1,000 MG in sodium chloride 0.9% (plus) 50 ML 100 MG IV (18:33)
[2019-12-22 19:58] VITALS: BP 174/80; PULSE 108; RESP 22; TEMP 36.7; O2SAT 91
[2019-12-22] MEDS: enoxaparin 40 mg/0.4 mL Syringe SUBCUT (21:22)
[2019-12-22] MEDS: artificial tears Op Soln 15 mL Btl 1 DROP EYE-LEFT (21:22)
[2019-12-22 21:39] LABS: Glucose Point of Care 170 mg/dL (70-110)
[2019-12-22] MEDS: sodium chloride 0.9% 1,000 ML 50 ML IV (21:50)
[2019-12-23] VITALS (15 sets, daily range): BP systolic 150–171; BP diastolic 59–81; PULSE 94–105; RESP 18–22; TEMP 36.5–37; O2SAT 93–98
[2019-12-23] MEDS: artificial tears Op Soln 15 mL Btl 1 DROP EYE-LEFT ×6 (00:23→21:23)
[2019-12-23] MEDS: OLANZapine 10 mg VIAL IM (03:31)
--- NOTE | 2019-12-23 03:39 | PC.NURSE ---
Patient becoming more and more restless, agitated, and trying to get out of bed. Orders received for Zyprexa IM once, given. Sitter at bedside. Will continue to monitor patient.
[2019-12-23 06:59] LABS: Glucose Point of Care 143 mg/dL (70-110)
--- NOTE | 2019-12-23 08:54 | CT_ITS ---
WS: [id number] CT HEAD NONCONTRAST HISTORY: change in patient level of consciousness TECHNIQUE: Contiguous axial imaging performed through the brain in 2.5 mm imaging. Bone and soft tiss ue windows. Sagittal and coronal reformats reviewed. All CT scans at [facility] use at le ast one of these dose optimization techniques: automated exposure control; mA and/or kV adjustment pe r patient size (includes targeted exams where dose is matched to clinical indication); or iterative r econstruction. DLP: 727.74 mGy.cm COMPARISON: 12/18/2019 No acute intracranial hemorrhage, midline shift or mass effect. Moderate atrophy and chronic ischemic disease. No focal area of sulcal effacement or edema. Mild cere bellar atrophy. Ventricles: Ventricles and extra-axial spaces are prominent on the basis of atrophy. Paranasal sinuses: As visualized are clear. Mastoid air cells: Well pneumatized. Calvarium and scalp: Skull is intact with no soft tissue edema or swelling. Notified Geno Wyatt MD at 12/23/2019 9:[address]/CT head wo con* [id number] IMPRESSION: 1. No acute intracranial hemorrhage or edema. 2. Moderate atrophy and chronic ischemic disease.
[2019-12-23 09:13] LABS: ABG PCO2 35.5 mmHg (35-45); ABG PH Result 7.44 (7.35-7.45); Arterial Blood Gas Hematocrit 40.3 % (42-52); Base Excess ABG 0.1 mmol/L (-2.0-2.0); Blood Gas Sample Site Radial, right; Blood Gas Sample Type Arterial; Carboxyhemoglobin 0.8 %THgb (0.4-20.1); HCO3 ABG 23.9 mmol/L (22-26); HGB O2 Sat 90.8 % (95-100); Ionized Calcium Level - ABG 1.1 mmol/L (1.1-1.4); Methemoglobin 0.7 % (0.4-1.5); Oxygen Saturation ABG 92.2; PO2 ABG 60.6 mmHg (80.0-100.0); Potassium Level - ABG 3.3 mmol/L (3.5-5.0); Total Hemoglobin 13.2 g/dL (14-18)
--- NOTE | 2019-12-23 09:24 | P.PNCC_ITS ---
Stroke Alert Activation ED Arrival Date: 12/23/19 ED Arrival Time: 09:00 Last Known Normal/at Baseline: 3-4 hours ago Other Last Known Well Infomation: Stroke alert was called at 9:05 AM. I called and talked with Rupali, the charge nurse on medical search. She reported that stroke alert was called because of left-sided weakness and she was unsure of the details. The witness was the patient care one-on-one sitter and the stro ke alert was called by the nurse, John. Aarti was his patient care nurse from yesterday noon until 7 PM and he was confused throughout her stay. The night time one-on-one sitter took over and at 3:00 his behavior was so combative that he received Zyprexa. He went to sleep at 345 and that was the last time anyone was able to wake him up. John reports that this morning the patient would not awaken, would not make any speech or move. There was a question of left-sided drift. Stroke alert was called. I came directly to CAT scan where the patient's CAT scan had just been completed and looked at the images on the monitor. He had diffuse atrophy but no focal findings. I examined the patient on the CAT scan [facility]. He has dense crusting lesions in exactly left V1 distribution. He opened his eyes and made eye contact. He had full spontaneous eye movements. He responded to threat in the right visual field. He was able to keep both upper extremities elevated without drift. Strength in the right upper extremity was very good as he demonstrated. He had myoclonic tremor in both upper extremities. Facial movements were symmetric within limits of testing and I did not find any focal findings. The patient was diffusely weak and could not sit up. It was my impression that he was experiencing side effects from combination of underlying dementia, high-dose steroids and Zyprexa which appropriately causes sedation. 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 He had mild CSF pleocytosis which is typical of V1 zoster. At this time he does not appear to be having a left middle cerebral artery stroke which would be a complication of V1 zoster. Stroke Alert Activated by: Patient care nurse Rupali/John Stroke Alert Activation Time: :05 Stroke MD @ Bedside Time: 09:05 NIH Stroke Scale Time: 09:15 NIH stroke score NIHSS: Level Of Consciousness - 1a: 1 Level Of Consciousness Questions - 1b: Neither Correct Level Of Consciousness Commands - 1c: Both Correct Best Gaze - 2: Normal Visual Lo - 3: No Visual Loss Facial Palsy - 4: Normal Motor Arm Right - 5: No Drift Motor Arm Left - 5: No Drift Motor Leg Right - 6: No Drift Motor Leg Left - 6: No Drift Limb Ataxia - 7: Present In Two Limbs Sensory - 8: Normal Best Language - 9: Mild/Moderate Aphasia Dysarthia - 10: Mild/Moderate Dysarthia If Intubated/Physcial Barrier - Explain: Patient profoundly confused. Able to say his name and follow simple commands. Stroke Alert Data/Treatment Time to CT of Head: 09:00 CT Results Time: 09:10 CT Impression: Diffuse atrophy Stroke Risk Factors: hypertension, obesity and diabetes mellitus (Morbid obesity, V1 zoster) tPA Contraindication: tPA Contraindication: Treatment not indcated Other Information: Discussed with Dr. Wyatt. Critical Care Time Critical Care Time: less than 30 mins Coding Level of Care Code Acute Trash Collector Supervisor for Milag[facility] Ugarte
[2019-12-23] MEDS: hyDRALAzine 20 mg/mL INJ 1 mL 5 MG IVP (09:44)
[2019-12-23 10:03] LABS: Alanine Aminotransferase 24 U/L (0-41); Albumin Level 3.3 g/dL (3.5-5.2); Alkaline Phosphatase 54 IU/L (40-130); Anion Gap 16.3 (5-19); Aspartate Amino Transferase 37 U/L (0-40); Blood Urea Nitrogen 35 mg/dL (8-23); Calcium 8.6 mg/dL (8.5-10.5); Carbon Dioxide 23 mmol/L (22-29); Chloride 104 mmol/L (98-107); Globulin 4.5 g/dL (1.3-4.6); Glucose 173 mg/dL (65-115); Osmolality Calculated 292 mOsm/kg (285-295); Potassium 3.3 mmol/L (3.5-5.1); Sodium 140 mmol/L (136-145); Total Bilirubin 0.2 mg/dL (0.15-1.2); Total Protein 7.8 g/dL (6.6-8.7)
--- NOTE | 2019-12-23 10:03 | PC.SOCIAL ---
IMM Update Pg 2 of IMM explained to patient's , Alyssa, via phone. Verbalized understanding. Copy in chart updated.
--- NOTE | 2019-12-23 10:33 | PM.CONSULT ---
Providers/Reason For Consult Consulting Physican/Specialty*: Bud Tripathi Ophthalmology Reason for Consult*: Zoster left V-1 distribution Attending Physician: Geno Wyatt MD Primary Care Provider: Shamika Harman DO History of Present Illness History of Present Illness Bud Ivy is a 84 year old male admitted through the ER for V-1 left Zoster with encephelitis symptoms as well. Currently he's able to be awakened but provides no helpful responses. Meds/Allergies Home Medications and Allergies Home Medications Medication Instructions Recorded Confirmed Type alprazolam 0.5 mg tablet 0.5 mg PO BID PRN tab 10/22/19 12/22/19 History atorvastatin 20 mg tablet 20 mg PO DAILY 10/22/19 12/22/19 History cyclosporine 0.05 % eye drops 1 drop OPHTHALMIC (EYE) DAILY ml 10/22/19 12/22/19 History docusate sodium 100 mg capsule 200 mg PO DAILY 10/22/19 12/22/19 History glimepiride 1 mg tablet 1 mg PO DAILY 10/22/19 12/22/19 History hydrocodone 10 mg-acetaminophen 1 tab PO Q6H PRN tab 10/22/19 12/22/19 History 325 mg tablet venlafaxine 37.5 mg tablet 37.5 mg PO DAILY 10/22/19 12/22/19 History zolpidem 5 mg tablet 10 mg PO BEDTIME PRN 10/22/19 12/22/19 History acyclovir 800 mg PO 5XD 12/22/19 12/22/19 History diltiazem HCl [Cartia XT] 120 mg PO DAILY 12/22/19 12/22/19 History metformin 500 mg PO QPM 12/22/19 12/22/19 History oxybutynin chloride 15 mg PO DAILY 12/22/19 12/22/19 History polyethylene glycol 3350 [Miralax] 17 g PO DAILY PRN 12/22/19 12/22/19 History Allergies Allergy/AdvReac Type Severity Reaction Status Date / Time clindamycin Allergy Unknown Verified 12/13/19 17:10 Current Medications Current Medications Generic Name Dose Route Start Last Admin Trade Name Freq PRN Reason Stop Dose Admin Hydrocodone Bitart/Acetaminophen 1 tab 12/18/19 20:55 12/20/19 20:59 [place] 10-325 Mg PO 1 tab Q6H PRN Administration MODERATE PAIN Alprazolam 0.25 mg 12/18/19 20:55 12/21/19 09:41 Xanax PO 0.25 mg TID PRN Administration ANXIETY Amlodipine Besylate 5 mg 12/21/19 17:05 12/22/19 08:53 Norvasc PO 5 mg DAILY MARY Administration Artificial Tears 1 drop 12/22/19 16:00 12/23/19 03:30 Isopto Tears EYE-LEFT 1 drop Q4H MARY Administration Atorvastatin Calcium 20 mg 12/19/19 09:00 12/22/19 08:53 Lipitor PO 20 mg DAILY MARY Administration Clotrimazole 1 applic 12/22/19 18:00 12/22/19 17:18 Lotrimin TOPICAL 1 applic BID MARY Administration Docusate Sodium 100 mg 12/19/19 09:00 12/22/19 08:52 Colace PO 100 mg DAILY MARY Administration Enoxaparin Sodium 40 mg 12/18/19 20:55 12/22/19 21:22 Lovenox SUBCUT 40 mg Q24H MARY Administration Acyclovir 1,000 mg/ Sodium 120 mls @ 120 mls/hr 12/19/19 01:00 12/23/19 03:30 Chloride IV 120 mls/hr Q8H MARY Administration Ceftriaxone Sodium 1,000 mg/ 50 mls @ 100 mls/hr 12/19/19 19:00 12/22/19 19:03 Sodium Chloride IV Infused Q24H MARY Infusion Protocol Sodium Chloride 1,000 mls @ 50 mls/hr 12/18/19 20:55 12/22/19 21:50 Sodium Chloride 0.9% IV 50 mls/hr .Q20H MARY Administration Insulin Aspart 0 unit 12/19/19 08:00 12/23/19 09:43 Novolog SUBCUT Not Given TIDWM MARY Protocol Insulin Aspart 0 unit 12/18/19 21:00 12/22/19 21:39 Novolog SUBCUT 1 unit BEDTIME MARY Administration Protocol Nystatin 1 applic 12/22/19 18:00 12/22/19 17:18 Nystatin Powder TOPICAL 1 applic BID MARY Administration Pantoprazole Sodium 40 mg 12/22/19 12:45 12/22/19 13:14 Protonix PO 40 mg DAILY MARY Administration Venlafaxine HCl 37.5 mg 12/19/19 09:00 12/22/19 08:52 Effexor PO 37.5 mg DAILY MARY Administration PFSH Acute PFSH: Medical History (Updated 12/23/19 @ 10:58 by Bud Tripathi MD) Anxiety Balanitis Balanitis circinata Chronic back pain Depression Diabetes mellitus type 2 in nonobese Hyperlipidemia Insomnia Lower urinary tract symptoms Phimosis Surgical History History of basal cell carcinoma excision REMOVED FROM HEAD History of circumcision History of hernia repair Status post repair of hydrocele Family History Father , AT AGE 73 RENAL FAILURE Chronic kidney disease (CKD) Mother , AT AGE 88 Chronic kidney disease (CKD) Social History Smoking and tobacco status: former smoker Alcohol intake: never Adopted: No Caregiver/support person: No Lives independently: No Household members: spouse Marital status: Current occupational status: retired Vitals/I&O/Wt Last Vital Signs Temp 97.7 F 12/23/19 09:00 Pulse 100 12/23/19 09:00 Resp 18 12/23/19 09:00 BP 159/79 12/23/19 09:00 Pulse Ox 94 12/23/19 07:34 12/22/19 12/23/19 12/23/19 22:59 06:59 14:59 Intake Total 1170 / 1890 Balance 1170 / 1890 Physical Exam Narrative: EXAM NARRATIVE: Somnolent and in no obvious distress. Eye: COMMON NORMALS: PERRL and EOMs intact bilaterally GENERAL EYE: normal light reflex ALIGNMENT: Yes alignment normal EYELID: eyelid abnormal left upper eyelid lid margins crusty/scaly, ptosis (obvious V-1 zoster with mild lower lid and lash crusting on the left) and swelling PUPIL: Yes PERRL DIRECT OPHTHALMOSCOPY: Yes normal light reflex SLIT LAMP EXAM: Yes cornea Cornea details: other (no dendrite but mild inferior staining from exposure caused by insufficient upper lid mobility and closure limitation.) Data Micro: Micro: Microbiology 12/18/19 16:08 Gram Stain - Final Cerebrospinal Flu id CSF Culture - Brooke l A&P Assessment and plan (1) 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 The full motility and lack of conjunctival injection suggest no anterior ocular nor orbital involvement other than the mentioned exposure. There is no obvious pupillary irregularity suggestive of optic nerve involvement (although both pupils are very small with little response to light). To prevent additional corneal changes from exposure, I would add Erythromycin ointment to the left eye tid until the upper lid motility allows for complete closure. Thank you for allowing me to assist. 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
[2019-12-23 10:59] LABS: Basophils # 0.1 10^3/uL (0.0-0.1); Basophils % 0.3 %; Hematocrit 38.2 % (42.0-52.0); Hemoglobin 12.6 g/dL (11.7-16.6); Lymphocytes # 3.3 10^3/uL (0.8-4.8); Mean Corpuscular Hemoglobin 29.3 pg (28.0-34.0); Mean Corpuscular Volume 88.8 fL (80-94); Mean Platelet Volume 9.6 fL (7.4-10.4); Monocytes # 1.6 10^3/uL (0.2-0.9); Monocytes % 10.4 %; Neutrophils # 10.7 10^3/uL (1.8-7.7); Neutrophils % 67.5 %; Nucleated Red Blood Cells % 0 %; Platelet Count 447 10^3/cmm (130-400); Red Cell Distribution Width 13.7 % (12.1-15.1); White Blood Count 15.8 10^3/uL (4.0-10.0)
[2019-12-23 11:11] LABS: Glucose Point of Care 151 mg/dL (70-110)
--- NOTE | 2019-12-23 11:36 | PM.PN ---
Subjective Subjective: Interval history: patient had a stroke code called this morning at 9AM. it was reported that patient was unable to be awakened, which is a private branch exchange service adviser his baseline. There was also concern for possible left facial droop. Ct head was taken and negative for acute stroke. He was additionally seen by Dr. Canales from neurology. Since returning from CT, his mental status is waxing and waning. He was able to wake up, sit up in bed, ask for water and take a few sips with straw however he was confused. told me his name, but said he is 11 years old. Not oriented to time, place or person. AMBAR worsening no to 2.2 cr. CXR with minimal effusions and atelactasis. Medications: Reviewed: Yes Vitals/I&O/Wt Last Vital Signs Temp 97.7 F 12/23/19 09:00 Pulse 100 12/23/19 09:00 Resp 18 12/23/19 09:00 BP 159/79 12/23/19 09:00 Pulse Ox 94 12/23/19 07:34 12/22/19 12/23/19 12/23/19 22:59 06:59 14:59 Intake Total 1170 / 1890 Balance 1170 / 1890 Physical Exam Narrative: EXAM NARRATIVE: GEN: Drowsy, awakens, unable to partcipate in conversation. Oriented to self CVS: S1S2 N RS: CTA B/L Abd: Soft, nt/nd , bs+ METALWORKING INSTRUCTOR: as above. On passively moving his B/L arms, he is able to keep both arms elevated off the bed, following commands on asking repeatedly. Data : 12/23/19 10:45 12/23/19 09:35 Micro: Microbiology 12/18/19 16:08 Gram Stain - Final Cerebrospinal Fluid CSF Culture - Final A&P Assessment and plan (1) Herpes zoster: Status: Acute (2) Encephalitis: Status: Acute (3) Hyponatremia: Sodium level has normalized Continue low-dose IV fluids Status: Acute (4) UTI (urinary tract infection): Status: Acute (5) Tinea: Nystatin cream as needed twice daily Status: Acute Additional A&P Information 84 year old male admitted on 12/17 with c/o rash over face and headache, first seen in [facility] on 12/12 for headache, no rash. Then presented to ER on 12/17 with zoster rash. 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 Currently on high dose iv ACV for the same. Mental status had started to improve, though with some intermittent confusion persisting. Also has undelrying dementia. This morning stroke code called, details as above # AMS, waxing and waning, worsened this morning. Likely to be a combination of Zyprexa that he received overnight at ~4am. Last seen normal at 4am CT head without acute changes. ?contributed by high dose prednisone- stop prednisone today sto prn xanax, avoid all benzos prn haldol if needed D/c opiates (has not received in 2 days) Monitor neuro status closely NPO now # AMBAR, likely from ACV reduce dosing to 1g q24h increase fluids to NS 75cc/hr 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 : Currently on 10mg/kg IV ACV q8h Will plan to use for iv rx over the next 10-14 days Added adjunctive corticosteroids with Prednisone 80mg to avoid VZV vasculopathy and trigeminal neuralgia however now discontinued as above Appreciate ophthalmology recommendations VZV DNA pending from CSF Check CMP for close monitoring of renal function On IV ceftriaxone currently to avoid secondary cellulitis over face [place] for pain management Lesions mostly crusted over at this time, will continue isolation over next 24 hrs and discontinue once all lesions crusted over. # Chronic scrotal irritation and erythema: previously diagnosed with candidiasis/tinea of the scrotum, [facility] This has not helped thus far. will change to clotrimazole ointment, nystatin powder and interdry twice daily. If fails to improve, trial of po fluconazole, however after ACV course is completed to minimize polypharmacy. # HTN # sinus tachycardia: resume procardia XT # Continue Effexor and xanax # Onychocryptosis left hallux toenail: s/p Doxycycline x 1month and mupirocin band aid Full code Dispo: to NH once mental status improves Attestations Medical Necessity Statement*: waxing and waning mental status, stroke [place] today, needs continued neuroobservation Coding Level of Care Code Acute Supervisor Education for [facility] Ugarte Diagnoses Herpes zoster B02.9 Encephalitis G04.90 Hyponatremia E87.1 UTI (urinary tract infection) N39.0 Tinea B35.9
[2019-12-23] MEDS: nystatin powder 15 gm Btl 1 APPLIC TOPICAL ×2 (12:36→18:13)
[2019-12-23] MEDS: clotrimazole 1% cream 30 gm 1 APPLIC TOPICAL ×2 (12:36→18:13)
[2019-12-23 17:23] LABS: Glucose Point of Care 163 mg/dL (70-110)
[2019-12-23] MEDS: cefTRIAXone 1,000 MG in sodium chloride 0.9% (plus) 50 ML 100 MG IV (18:29)
[2019-12-23 20:52] LABS: Glucose Point of Care 196 mg/dL (70-110)
[2019-12-23] MEDS: enoxaparin 40 mg/0.4 mL Syringe SUBCUT (21:23)
[2019-12-23] MEDS: sodium chloride 0.9% 1,000 ML 50 ML IV (21:24)
[2019-12-24] VITALS (9 sets, daily range): BP systolic 121–198; BP diastolic 55–84; PULSE 88–102; RESP 16–24; TEMP 37.1–37.9; O2SAT 93–95
[2019-12-24] MEDS: artificial tears Op Soln 15 mL Btl 1 DROP EYE-LEFT ×5 (00:12→20:44)
[2019-12-24 06:40] LABS: Glucose Point of Care 145 mg/dL (70-110)
[2019-12-24] MEDS: hyDRALAzine 20 mg/mL INJ 1 mL 5 MG IVP ×2 (07:39→12:11)
[2019-12-24] MEDS: amlodipine 5 mg Tablet PO (08:40)
[2019-12-24] MEDS: atorvastatin 40 mg Tablet 20 MG PO (08:40)
[2019-12-24] MEDS: dilTIAZem ER (24HR) 120 mg Capsule PO (08:40)
[2019-12-24] MEDS: venlafaxine 75 mg Tablet 37.5 MG PO (08:41)
[2019-12-24] MEDS: pantoprazole DR 40 mg Tablet PO (08:42)
[2019-12-24] MEDS: docusate sodium 100 mg Capsule PO (08:42)
[2019-12-24] MEDS: clotrimazole 1% cream 30 gm 1 APPLIC TOPICAL ×2 (11:00→17:58)
[2019-12-24] MEDS: sodium chloride 0.9% 1,000 ML 50 ML IV ×2 (11:00→22:57)
[2019-12-24] MEDS: nystatin powder 15 gm Btl 1 APPLIC TOPICAL ×2 (11:01→17:58)
--- NOTE | 2019-12-24 11:13 | PC.NURSE ---
Called Pharmacy about Gentamicin ointment for eye, Simon said they are out. Notified Dr Wyatt.
[2019-12-24 11:20] LABS: Glucose Point of Care 155 mg/dL (70-110)
[2019-12-24 12:03] LABS: Alanine Aminotransferase 25 U/L (0-41); Albumin Level 3.1 g/dL (3.5-5.2); Alkaline Phosphatase 48 IU/L (40-130); Anion Gap 17.3 (5-19); Aspartate Amino Transferase 36 U/L (0-40); Blood Urea Nitrogen 37 mg/dL (8-23); Calcium 8.6 mg/dL (8.5-10.5); Carbon Dioxide 22 mmol/L (22-29); Chloride 107 mmol/L (98-107); Globulin 3.9 g/dL (1.3-4.6); Glucose 159 mg/dL (65-115); Osmolality Calculated 297 mOsm/kg (285-295); Potassium 3.3 mmol/L (3.5-5.1); Sodium 143 mmol/L (136-145); Total Bilirubin 0.2 mg/dL (0.15-1.2)
[2019-12-24] MEDS: piperacillin-tazobactam 3.375 GM in sodium chloride 0.9% (plus) 50 ML IV ×2 (12:10→19:52)
[2019-12-24] MEDS: ciprofloxacin 0.3% Op Soln 2.5 mL Btl 1 DROP EYE-BOTH ×2 (16:24→20:45)
--- NOTE | 2019-12-24 16:25 | PM.PN ---
Subjective Subjective: Interval history: patient developed fever overnight up to 100.2F. mental status is improved today and patient appears to be more alert than yesterday, though refuses to eat today. He is able to swallow pills. He has been picking at his lesions over the face. Medications: Reviewed: Yes Vitals/I&O/Wt Last Vital Signs Temp 99.1 F 12/24/19 15:13 Pulse 90 12/24/19 15:13 Resp 24 H 12/24/19 15:13 BP 162/65 12/24/19 15:13 Pulse Ox 93 12/24/19 15:13 12/24/19 12/24/19 12/24/19 06:59 14:59 22:59 Intake Total 120 / 1600 920 / 920 Balance 120 / 1600 920 / 920 Physical Exam Narrative: EXAM NARRATIVE: GEN: Awake upon being called out, otherwise lethargic and prefers to sleep CVS: S1S2 N RS: CTA B/L Abd: Soft, nt/nd , bs+ Data : 12/23/19 10:45 12/24/19 11:27 Micro: Microbiology 12/24/19 13:10 Blood Culture - Preliminary Blood SPECIMEN COLLECTED 12/24/19 13:37 Blood Culture - Preliminary Blood SPECIMEN COLLECTED 12/18/19 12:45 Blood Culture - Final Blood NO GROWTH AFTER 5 DAYS 12/18/19 12:55 Blood Culture - Final Blood NO GROWTH AFTER 5 DAYS A&P Assessment and plan (1) Herpes zoster: Status: Acute (2) Encephalitis: Status: Acute (3) Hyponatremia: Sodium level has normalized Continue low-dose IV fluids Status: Acute (4) UTI (urinary tract infection): Status: Acute (5) Tinea: Nystatin cream as needed twice daily Status: Acute Additional A&P Information 84 year old male admitted on 12/17 with c/o rash over face and headache, first seen in [facility] on 12/12 for headache, no rash. Then presented to ER on 12/17 with zoster rash. 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 Currently on high dose iv ACV for the same. Mental status had started to improve, though with some intermittent confusion persisting. Also has undelrying dementia. Stroke code called 12/22 due to lethargy and inability to be woken up, likely 2/2 benzodiazepene use which is improving, but mental status continues to wax and wane. # AMS, waxing and waning Likely to be a combination of Zyprexa CT head without acute changes. 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 : Currently on 10mg/kg IV ACV q8h Will plan to use for iv rx over the next 10-14 days Added adjunctive corticosteroids with Prednisone 80mg to avoid VZV vasculopathy and trigeminal neuralgia however now discontinued as above Appreciate ophthalmology recommendations VZV DNA pending from CSF Check CMP for close monitoring of renal function On IV ceftriaxone currently to avoid secondary cellulitis over face [place] for pain management # Chronic scrotal irritation and erythema: 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 This has not helped thus far. will change to clotrimazole ointment, nystatin powder and interdry twice daily. If fails to improve, trial of po fluconazole, however after ACV course is completed to minimize polypharmacy. # HTN # sinus tachycardia: resume procardia XT # Continue Effexor and xanax # Onychocryptosis left hallux toenail: s/p Doxycycline x 1month and mupirocin band aid Full code Dispo: to NH once mental status improves Attestations Medical Necessity Statement*: development of new fever, undergoing infectious w/up Coding Level of Care Code Acute Electronic Video Games Servicer for [facility] Fwd Diagnoses Herpes zoster B02.9 Encephalitis G04.90 Hyponatremia E87.1 UTI (urinary tract infection) N39.0 Tinea B35.9
[2019-12-24 17:10] LABS: Glucose Point of Care 181 mg/dL (70-110)
[2019-12-24 20:39] LABS: Glucose Point of Care 151 mg/dL (70-110)
[2019-12-24] MEDS: enoxaparin 40 mg/0.4 mL Syringe SUBCUT (20:43)
[2019-12-25] VITALS (10 sets, daily range): BP systolic 134–195; BP diastolic 52–84; PULSE 74–91; RESP 16–22; TEMP 36.6–37.1; O2SAT 92–96
[2019-12-25] MEDS: artificial tears Op Soln 15 mL Btl 1 DROP EYE-LEFT ×6 (00:06→20:07)
[2019-12-25 03:27] LABS: Add Urine Microscopic? NO
[2019-12-25] MEDS: piperacillin-tazobactam 3.375 GM in sodium chloride 0.9% (plus) 50 ML IV ×3 (03:32→20:07)
[2019-12-25 03:33] LABS: Bilirubin Urine Neg (NEGATIVE); Blood Urine Neg (Negative); Glucose Urine UA Norm (Normal); Ketones Urine Negative (Negative); Leukocyte Esterase Urine Negative (Negative); Nitrate Urine Negative (Negative); Protein Urine Neg (Negative); Specific Gravity, Urine 1.005 (1.005-1.030); Urine Appearance Clear (CLEAR); Urine Color Yellow (Yellow); Urobilinogen Urine Norm (Negative); pH Urine 6 (5-7)
[2019-12-25] MEDS: haloperidol inj 5 mg/mL INJ 1 mL IM ×2 (03:45→18:01)
[2019-12-25 06:49] LABS: Glucose Point of Care 142 mg/dL (70-110)
[2019-12-25 06:50] LABS: Alanine Aminotransferase 22 U/L (0-41); Albumin Level 3.1 g/dL (3.5-5.2); Alkaline Phosphatase 57 IU/L (40-130); Aspartate Amino Transferase 30 U/L (0-40); Blood Urea Nitrogen 33 mg/dL (8-23); Calcium 8.6 mg/dL (8.5-10.5); Carbon Dioxide 18 mmol/L (22-29); Globulin 4.2 g/dL (1.3-4.6); Glucose 166 mg/dL (65-115); Total Bilirubin 0.4 mg/dL (0.15-1.2); Total Protein 7.3 g/dL (6.6-8.7)
[2019-12-25 07:20] LABS: Anion Gap 23.5 (5-19); Chloride 108 mmol/L (98-107); Osmolality Calculated 303 mOsm/kg (285-295); Potassium 3.5 mmol/L (3.5-5.1); Sodium 146 mmol/L (136-145)
[2019-12-25 08:14] LABS: Basophils # 0.1 10^3/uL (0.0-0.1); Basophils % 0.8 %; Eosinophils # 0.1 10^3/uL (0.0-0.8); Eosinophils % 0.8 %; Hematocrit 39.4 % (42.0-52.0); Hemoglobin 12.2 g/dL (11.7-16.6); Lymphocytes # 2.6 10^3/uL (0.8-4.8); Lymphocytes % 20.1 %; Mean Corpuscular Hemoglobin 28.8 pg (28.0-34.0); Mean Corpuscular Volume 92.9 fL (80-94); Mean Platelet Volume 9.3 fL (7.4-10.4); Monocytes # 1.2 10^3/uL (0.2-0.9); Monocytes % 9.4 %; Neutrophils # 8.8 10^3/uL (1.8-7.7); Neutrophils % 67.4 %; Nucleated Red Blood Cells % 0 %; Platelet Count 391 10^3/cmm (130-400); Red Blood Count 4.24 10^6/uL (4.1-5.3); Red Cell Distribution Width 14.2 % (12.1-15.1)
[2019-12-25] MEDS: venlafaxine 75 mg Tablet 37.5 MG PO (09:56)
[2019-12-25] MEDS: atorvastatin 40 mg Tablet 20 MG PO (09:56)
[2019-12-25] MEDS: amlodipine 5 mg Tablet PO (09:57)
[2019-12-25] MEDS: dilTIAZem ER (24HR) 120 mg Capsule PO (09:57)
[2019-12-25] MEDS: docusate sodium 100 mg Capsule PO (09:57)
[2019-12-25] MEDS: pantoprazole DR 40 mg Tablet PO (09:58)
[2019-12-25] MEDS: ciprofloxacin 0.3% Op Soln 2.5 mL Btl 1 DROP EYE-BOTH ×4 (09:58→20:07)
[2019-12-25] MEDS: nystatin powder 15 gm Btl 1 APPLIC TOPICAL ×2 (09:59→17:30)
[2019-12-25] MEDS: clotrimazole 1% cream 30 gm 1 APPLIC TOPICAL ×2 (10:06→17:30)
[2019-12-25 10:22] LABS: Coronavirus Lab Test PTC NOT DETECTED
[2019-12-25 11:04] LABS: Glucose Point of Care 226 mg/dL (70-110)
--- NOTE | 2019-12-25 12:42 | PC.SLP ---
Attempted to evaluate patient per physician order, however, patient could not be awakened due to a recent administration of Haldol. Will continue to monitor and evaluate when appropriate.
--- NOTE | 2019-12-25 14:21 | PM.PN ---
Subjective Subjective: Interval history: afebrile today, mental status is improving, able to participate in conversation today. All lesions crusted over at this time. Participated with PT. COVID negative Medications: Reviewed: Yes Vitals/I&O/Wt Last Vital Signs Temp 98.3 F 12/25/19 12:00 Pulse 80 12/25/19 12:00 Resp 17 12/25/19 12:00 BP 134/52 12/25/19 12:00 Pulse Ox 96 12/25/19 12:00 12/24/19 12/25/19 12/25/19 22:59 06:59 14:59 Intake Total 887.5 / 1927.5 50 / 1976.5 750 / 750 Balance 887.5 / 192.5 1976.5 750 / 750 Physical Exam Narrative: EXAM NARRATIVE: GEN: Awake, able to participate in conversation, was able to eat, participate in PT CVS: S1S2 N RS: CTA B/L Abd: Soft, nt/nd , bs+ neuro: following commands, conversing, confused, more closer to baselin etoday Data : 12/25/19 08:02 12/25/19 05:35 Micro: Microbiology 12/24/19 13:10 Blood Culture - Preliminary Blood NEGATIVE TO DATE 12/24/19 13:37 Blood Culture - Preliminary Blood NEGATIVE TO DATE A&P Assessment and plan (1) Herpes zoster: Status: Acute (2) Encephalitis: Status: Acute (3) Hyponatremia: Sodium level has normalized Continue low-dose IV fluids Status: Acute (4) UTI (urinary tract infection): Status: Acute (5) Tinea: Nystatin cream as needed twice daily Status: Acute Additional A&P Information 84 year old male admitted on 12/17 with c/o rash over face and headache, first seen in [facility] on 12/12 for headache, no rash. Then presented to ER on 12/17 with zoster rash. 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 Currently on high dose iv ACV for the same. Mental status had started to improve, though with some intermittent confusion persisting. Also has undelrying dementia. Stroke code called 12/22 due to lethargy and inability to be woken up, likely 2/2 benzodiazepene use which is improving, but mental status continues to wax and wane. # AMS, waxing and waning, improved today Likely to be a combination of Zyprexa CT head without acute changes. 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 This has not helped thus far. will change to clotrimazole ointment, nystatin powder and interdry twice daily. If fails to improve, trial of po fluconazole, however after ACV course is completed to minimize polypharmacy. # HTN # sinus tachycardia: continue procardia XT # Continue Effexor. holding xanax # Onychocryptosis left hallux toenail: s/p Doxycycline x 1month and mupirocin band aid Full code Dispo: to [facility] once mental status improves and afberile, likely over the next 24 hrs Attestations Medical Necessity Statement*: upcoming discharge in the next 24-48hrs Coding Level of Care Code Acute Car Supplier for Lillianag Fwd Diagnoses Herpes zoster B02.9 Encephalitis G04.90 Hyponatremia E87.1 UTI (urinary tract infection) N39.0 Tinea B35.9
[2019-12-25] MEDS: sodium chloride 0.45% 1,000 ML 75 ML IV (14:50)
--- NOTE | 2019-12-25 14:58 | PC.SOCIAL ---
IMM Update Spoke to patient's spouse Alyssa and we reviewed the Important Medicare Message that had previously been discussed with her. Verbalized understand and placed updated copy in chart.
[2019-12-25 17:10] LABS: Glucose Point of Care 176 mg/dL (70-110)
[2019-12-25] MEDS: enoxaparin 40 mg/0.4 mL Syringe SUBCUT (20:07)
--- NOTE | 2019-12-25 21:17 | USCV_ITS ---
Bud Ivy Age: 84 Gender: M : 1935 Exam Date: 12/25/2019 13:19 Ordering Phys: Geno Wyatt MD Technologist: Dejon Montana [place] [facility] [place]: BED STASIS ? DVT HISTORY: Lower extremity edema. PROCEDURES: Venous duplex imaging was performed in bilateral lower extremities. The venous duplex Doppler examination of both lower extremities was performed in the standard fashion. Bilaterally, the common femoral, superficial femoral, profunda femoral, popliteal, posterior tibial, greater saphenous veins, and the peroneal trunk were identified and interrogated in the standard fashion. FINDINGS: Normal 2-D Doppler and augmentation and compressibility throughout the lower extremity venous structures. Additional imaging through the proximal calf veins also reveals no thrombus. Limited evaluation of the greater saphenous vein is patent with no thrombus. CONCLUSIONS No DVT bilateral lower extremities. Dr. Alley Diaz DO (Electronically Signed) Final Date: 25 December 2019 14:24 S
[2019-12-25 21:21] LABS: Glucose Point of Care 196 mg/dL (70-110)
[2019-12-26] VITALS (16 sets, daily range): BP systolic 158–192; BP diastolic 62–89; PULSE 71–84; RESP 16–18; TEMP 36.4–37; O2SAT 92–96
[2019-12-26] MEDS: artificial tears Op Soln 15 mL Btl 1 DROP EYE-LEFT ×6 (01:43→20:52)
[2019-12-26] MEDS: piperacillin-tazobactam 3.375 GM in sodium chloride 0.9% (plus) 50 ML IV ×3 (04:23→20:48)
[2019-12-26 05:31] LABS: Basophils # 0.1 10^3/uL (0.0-0.1); Basophils % 0.6 %; Eosinophils # 0.4 10^3/uL (0.0-0.8); Eosinophils % 2.9 %; Hemoglobin 10.8 g/dL (11.7-16.6); Lymphocytes # 3.6 10^3/uL (0.8-4.8); Lymphocytes % 25.3 %; Mean Corpuscular HGB Conc 31.8 g/dL (30.0-36.0); Mean Corpuscular Hemoglobin 29.3 pg (28.0-34.0); Mean Corpuscular Volume 92.4 fL (80-94); Mean Platelet Volume 9.4 fL (7.4-10.4); Monocytes # 1.3 10^3/uL (0.2-0.9); Monocytes % 9.3 %; Neutrophils # 8.5 10^3/uL (1.8-7.7); Neutrophils % 60.9 %; Nucleated Red Blood Cells % 0 %; Platelet Count 393 10^3/cmm (130-400); Red Blood Count 3.68 10^6/uL (4.1-5.3); Red Cell Distribution Width 14.1 % (12.1-15.1)
[2019-12-26 05:57] LABS: Alanine Aminotransferase 19 U/L (0-41); Albumin Level 3.1 g/dL (3.5-5.2); Alkaline Phosphatase 49 IU/L (40-130); Aspartate Amino Transferase 26 U/L (0-40); Blood Urea Nitrogen 22 mg/dL (8-23); Calcium 8.3 mg/dL (8.5-10.5); Carbon Dioxide 26 mmol/L (22-29); Chloride 105 mmol/L (98-107); Globulin 3.8 g/dL (1.3-4.6); Glucose 172 mg/dL (65-115); Osmolality Calculated 297 mOsm/kg (285-295); Sodium 143 mmol/L (136-145); Total Bilirubin 0.4 mg/dL (0.15-1.2); Total Protein 6.9 g/dL (6.6-8.7)
[2019-12-26 06:14] LABS: Glucose Point of Care 148 mg/dL (70-110)
[2019-12-26] MEDS: sodium chloride 0.45% 1,000 ML 75 ML IV (08:21)
[2019-12-26] MEDS: nystatin powder 15 gm Btl 1 APPLIC TOPICAL ×2 (08:28→18:14)
[2019-12-26] MEDS: amlodipine 5 mg Tablet PO (08:37)
[2019-12-26] MEDS: pantoprazole DR 40 mg Tablet PO (08:37)
[2019-12-26] MEDS: atorvastatin 40 mg Tablet 20 MG PO (08:37)
[2019-12-26] MEDS: docusate sodium 100 mg Capsule PO (08:37)
[2019-12-26] MEDS: acetaminophen 325 mg Tablet 650 MG PO ×2 (08:38→18:13)
[2019-12-26] MEDS: dilTIAZem ER (24HR) 120 mg Capsule PO (08:38)
[2019-12-26] MEDS: clotrimazole 1% cream 30 gm 1 APPLIC TOPICAL ×2 (08:38→18:14)
[2019-12-26] MEDS: ciprofloxacin 0.3% Op Soln 2.5 mL Btl 1 DROP EYE-BOTH ×4 (08:40→20:52)
[2019-12-26] MEDS: venlafaxine 75 mg Tablet 37.5 MG PO (08:41)
[2019-12-26] MEDS: haloperidol inj 5 mg/mL INJ 1 mL IM (08:42)
--- NOTE | 2019-12-26 11:14 | XRR_ITS ---
PROCEDURE INFORMATION: Exam: XR Chest, 1 View Exam date and time: 12/26/2019 11:15 AM Age: 84 years old Clinical indication: Shortness of breath; Additional info: Pneumonia TECHNIQUE: Imaging protocol: XR of the chest Views: 1 view. COMPARISON: CR XR chest 1V portable [id number] 12/22/2019 3:39 PM FINDINGS: Lungs: Unremarkable. No consolidation. Pleural space: Unremarkable. No pleural effusion. No pneumothorax. Heart/Mediastinum: Unremarkable. No cardiomegaly. Bones/joints: Unremarkable. XR/XR chest 1V portable [id number] IMPRESSION: No acute findings.
[2019-12-26] MEDS: potassium chloride oral liq 20 mEq/15 mL UDC 60 MEQ PO (11:39)
--- NOTE | 2019-12-26 14:37 | PM.PN ---
Subjective Subjective: Interval history: afebrile today, hemodynamically stable, mental status is improving. Poo po intake continues VZV DNA PCR returned positive from original LP. Lost i/v access today, replaced. Off suspplemental since yesetrday. Kidney function improving, cr at 1.7 today. urinating in diaper, not charted Medications: Reviewed: Yes Vitals/I&O/Wt Last Vital Signs Temp 97.6 F 12/26/19 13:00 Pulse 80 12/26/19 13:00 Resp 16 12/26/19 13:00 BP 158/78 12/26/19 13:00 Pulse Ox 92 12/26/19 13:03 12/25/19 12/26/19 12/26/19 22:59 06:59 14:59 Intake Total 290 / 1160 1530.00 / 2690.00 150 / 150 Balance 290 / 1160 1530.00 / 2690.00 150 / 150 Physical Exam Narrative: EXAM NARRATIVE: GEN: Awake, able to participate in conversation CVS: S1S2 N RS: B/L finee crackles over lung bases Abd: Soft, nt/nd , bs+ neuro: following commands, conversing Data : 12/26/19 05:00 12/26/19 05:00 Micro: Microbiology 12/24/19 13:10 Blood Culture - Preliminary Blood NEGATIVE TO DATE 12/24/19 13:37 Blood Culture - Preliminary Blood NEGATIVE TO DATE A&P Assessment and plan (1) Herpes zoster: Status: Acute (2) Encephalitis: Status: Acute (3) Hyponatremia: Sodium level has normalized Continue low-dose IV fluids Status: Acute (4) UTI (urinary tract infection): Status: Acute (5) Tinea: Nystatin cream as needed twice daily Status: Acute Additional A&P Information 84 year old male admitted on 12/17 with c/o rash over face and headache, first seen in [facility] [place] on 12/12 for headache, no rash. Then presented to ER on 12/17 with zoster rash. 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 Currently on high dose iv ACV for the same. Mental status had started to improve, though with some intermittent confusion persisting. Also has undelrying dementia. Stroke code called 12/22 due to lethargy and inability to be woken up, likely 2/2 benzodiazepene use which is improving. Mental satus now close to baseline since stopping benzodiazepenes. 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 : Currently on 10mg/kg IV ACV renally dosed day 9 today Will plan to use for iv rx to complete course for 14 days Added adjunctive corticosteroids with Prednisone 80mg to avoid VZV vasculopathy and trigeminal neuralgia however now discontinued given mental status change a day after starting steroids- may have been benzo vs steroid related Appreciate ophthalmology recommendations VZV DNA from CSF reported positive on 12/25 Check CMP for close monitoring of renal function # Chronic scrotal irritation and erythema: previously diagnosed with candidiasis/tinea of the scrotum, [facility] This has not helped thus far. will change to clotrimazole ointment, nystatin powder and interdry twice daily. If fails to improve, trial of po fluconazole, however after ACV course is completed to minimize polypharmacy. # HTN : D/c amlodipine to avoid 2 ca channel blockers (amlodipine+procardia)- start po hydralazine 10mg po TID # sinus tachycardia: currently controlled continue procardia XT # Continue Effexor. holding xanax # Onychocryptosis left hallux toenail: s/p Doxycycline x 1month and mupirocin band aid Full code Dispo: Planned for discharge to [place] today, however they are unable to draw labs until Saturday (today is Saturday) and patient needs daily creatinine check while on ACV for dose adjustments. Will check CMP here tomorrow morning and plan discharge after. Attestations Medical Necessity Statement*: herpes zoster encephalitis, need iv antivirals, discharge planning as above Coding Level of Care Code Acute Doll Wig Hackler for g Fwd Diagnoses Herpes zoster B02.9 Encephalitis G04.90 Hyponatremia E87.1 UTI (urinary tract infection) N39.0 Tinea B35.9
[2019-12-26] MEDS: hyDRALAzine 10 mg Tablet PO ×2 (15:55→20:54)
[2019-12-26 16:54] LABS: Glucose Point of Care 149 mg/dL (70-110)
[2019-12-26] MEDS: enoxaparin 40 mg/0.4 mL Syringe SUBCUT (20:50)
[2019-12-26 21:22] LABS: Glucose Point of Care 144 mg/dL (70-110)
[2019-12-26 21:22] LABS: Glucose Point of Care 188 mg/dL (70-110)
[2019-12-26 21:22] LABS: Glucose Point of Care 184 mg/dL (70-110)
[2019-12-27] VITALS: BP 168/74; PULSE 74; RESP 17; TEMP 36.9; O2SAT 93
[2019-12-27] MEDS: sodium chloride 0.45% 1,000 ML 75 ML IV (01:26)
[2019-12-27] MEDS: artificial tears Op Soln 15 mL Btl 1 DROP EYE-LEFT ×4 (01:26→13:18)
[2019-12-27 04:00] VITALS: BP 174/78; PULSE 75; RESP 16; TEMP 37.1; O2SAT 93
[2019-12-27] MEDS: piperacillin-tazobactam 3.375 GM in sodium chloride 0.9% (plus) 50 ML IV ×2 (04:00→11:41)
[2019-12-27 05:58] LABS: Basophils # 0.1 10^3/uL (0.0-0.1); Basophils % 0.8 %; Eosinophils # 0.5 10^3/uL (0.0-0.8); Eosinophils % 3.6 %; Hematocrit 38.2 % (42.0-52.0); Hemoglobin 12.4 g/dL (11.7-16.6); Lymphocytes # 3.4 10^3/uL (0.8-4.8); Lymphocytes % 23.8 %; Mean Corpuscular HGB Conc 32.5 g/dL (30.0-36.0); Mean Corpuscular Hemoglobin 29.6 pg (28.0-34.0); Mean Corpuscular Volume 91.2 fL (80-94); Mean Platelet Volume 9.2 fL (7.4-10.4); Monocytes # 1.2 10^3/uL (0.2-0.9); Monocytes % 8.1 %; Neutrophils % 62.9 %; Nucleated Red Blood Cells % 0 %; Platelet Count 396 10^3/cmm (130-400); Red Blood Count 4.19 10^6/uL (4.1-5.3); Red Cell Distribution Width 13.7 % (12.1-15.1); White Blood Count 14.3 10^3/uL (4.0-10.0)
[2019-12-27 06:11] LABS: Alanine Aminotransferase 21 U/L (0-41); Albumin Level 3.3 g/dL (3.5-5.2); Alkaline Phosphatase 56 IU/L (40-130); Anion Gap 17.1 (5-19); Aspartate Amino Transferase 29 U/L (0-40); Blood Urea Nitrogen 19 mg/dL (8-23); Calcium 8.6 mg/dL (8.5-10.5); Carbon Dioxide 24 mmol/L (22-29); Chloride 103 mmol/L (98-107); Globulin 4.2 g/dL (1.3-4.6); Glucose 158 mg/dL (65-115); Osmolality Calculated 292 mOsm/kg (285-295); Potassium 3.1 mmol/L (3.5-5.1); Sodium 141 mmol/L (136-145); Total Bilirubin 0.5 mg/dL (0.15-1.2); Total Protein 7.5 g/dL (6.6-8.7)
[2019-12-27 06:35] LABS: Glucose Point of Care 132 mg/dL (70-110)
[2019-12-27 07:31] VITALS: BP 168/82; PULSE 86; RESP 18; TEMP 36.8; O2SAT 93
[2019-12-27 07:57] VITALS: PULSE 75; RESP 18; O2SAT 95
[2019-12-27] MEDS: pantoprazole DR 40 mg Tablet PO (08:16)
[2019-12-27] MEDS: dilTIAZem ER (24HR) 120 mg Capsule PO (08:16)
[2019-12-27] MEDS: hyDRALAzine 10 mg Tablet PO (08:16)
[2019-12-27] MEDS: atorvastatin 40 mg Tablet 20 MG PO (08:16)
[2019-12-27] MEDS: venlafaxine 75 mg Tablet 37.5 MG PO (08:16)
[2019-12-27] MEDS: docusate sodium 100 mg Capsule PO (08:17)
[2019-12-27] MEDS: ciprofloxacin 0.3% Op Soln 2.5 mL Btl 1 DROP EYE-BOTH ×2 (08:26→13:18)
[2019-12-27] MEDS: nystatin powder 15 gm Btl 1 APPLIC TOPICAL (08:27)
[2019-12-27] MEDS: clotrimazole 1% cream 30 gm 1 APPLIC TOPICAL (08:30)
--- NOTE | 2019-12-27 09:03 | PC.SOCIAL ---
IMM Update Pg 2 of IMM discussed over the phone with patient's , who verbalized understanding. Copy in chart updated.
--- NOTE | 2019-12-27 09:56 | PM.DCS ---
Discharge Providers Date of Admission: 12/18/19 18:37 Date of Discharge: December 27, 2019 Attending Provider at Admission: Khoi Gonzalez MD Attending Provider at Discharge: Geno Wyatt MD Primary Care Provider: Shamika Harman DO Diagnoses at Discharge Discharge Diagnosis (1) Herpes zoster: Status: Acute (2) Encephalitis: Status: Acute (3) Hyponatremia: Status: Acute (4) UTI (urinary tract infection): Status: Acute Problem details: resolved (5) Tinea: Status: Acute Problem details: chronic Reason for Visit Reason for Visit: Reason For Visit: SHINGLES/ CONFUSION Hospital Course Discharge Summary: 84 year old male admitted on 12/17 with c/o rash over face and headache, first seen in [facility] on 12/12 for headache, no rash. Then presented to ER on 12/17 with zoster rash in V1 distribution. 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 Currently on high dose iv ACV for the same, which is being renally dosed. Mental status had started to improve, though with some intermittent confusion persisting. Also has undelrying dementia per discussion with family. Stroke code called 12/22 due to lethargy and inability to be woken up, likely 2/2 benzodiazepene use the night prior, which is improving. Mental status now back to baseline since stopping benzodiazepenes. 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 : Currently on 10mg/kg IV ACV renally dosed day 10 today Will plan to use for iv rx to complete course for 14 days for herpes zoster encephalitis Added adjunctive corticosteroids with Prednisone 80mg to avoid VZV vasculopathy and trigeminal neuralgia however needed to be discontinued after one day given mental status change a day after starting steroids- may have been benzo vs steroid related Appreciate ophthalmology recommendations- no signs of zoster ophthalmicus VZV DNA from CSF reported positive on 12/25 Check CMP for close monitoring of renal function # AMS, waxing and waning during admission, back at baseline now Has intermittent agitation and sun downing likely 2/2 some underlying dementia, for which he is ordered for prn haldol avoid all benzodiazepenes avoid opiates # new fever, max 100.2F on 12/22, since has resolved. infectious w/up as below: CXR on 12/25 with no infiltrates, chest clear negative blood culture COVID 19 negative Cannot r/o secondary SSTI from picking at herpetic lesions +/- groin which has had intertrigo ongoing for months. May have aspirated while sedated. Improved on zosyn day 4 today. switched to levaquin on discharge. UA negative on 12/24 leukocytosis persisting at 14, however no gross infectious source or signs of sepsis at this time. Patient is clinically improving. Will need to trend at [facility] upon discharge. # AMBAR, likely from Acyclovir, peak cr at 2.2 Now improving to 1.4 with dose adjustment of acyclovir and iv hydration encourage po intake and fluid intake upon discharge kidney function needs to be monitored daily while on acyclovir and adjust dose accordingly # Chronic scrotal irritation and erythema: previously diagnosed with candidiasis/tinea of the scrotum, [facility] This has not helped thus far. will change to clotrimazole ointment, nystatin powder and interdry twice daily. If fails to improve, trial of po fluconazole can be given, however after ACV course is completed to minimize polypharmacy. Follow up with Dr. Almendarez as outpatient # HTN : D/c amlodipine to avoid 2 ca channel blockers (amlodipine+procardia)- started po hydralazine 10mg po TID. Avoiding SARAH due to AMBAR # sinus tachycardia: currently controlled continue procardia XT # Continue Effexor. holding xanax # Onychocryptosis left hallux toenail: s/p Doxycycline x 1month and mupirocin band aid. F/up with podiatry Full code Dispo: Planned for discharge to [facility] today Physical Exam Narrative: EXAM NARRATIVE: GEN: Awake, alert and oriented x 2 which is baseline for him. Conversant, in good spirits, wishes to leave the hospital CVS: S1S2 N RS: CTA B/L Abd: Soft, nt/nd , bs+ : Candidiasis os scortum and mons, slowly improving, penile retraction of the head into the base skin, unchanged Discharge Data Data Completed and Pending: Completed Studies During Hospitalization Category Date Time Status CT angio headneck * [id number] Urge nt Cat Scan 12/18/19 12:[address] head wo con* 7 0450 Stat Cat Scan 12/23/19 08:[address] head wo con* 7 0450 Urgent Cat Scan 12/18/19 12:10 Completed FL guided lumbarp uncture [id number] Stat Exams 12/18/19 14:42 Completed XR chest 1V austen ble [id number] Routine Exams 12/22/19 15:11 Completed XR chest 1V [place] ble [id number] Routine Exams 12/26/19 11:14 Completed XR chest 1V [place] ble [id number] Stat Exams 12/18/19 12:09 [place] [id number] Routin e Ultrasound 12/25/19 21:17 Completed Pending at discharge Category Date Time Status ABG FULL [Arteria l Blood Gas Full] Routine Lab 12/23/19 08:59 Results Blood Culture Sta t Lab 12/24/19 13:10 Results Labs from last 24 hours 12/27/19 12/27/19 12/27/19 06:32 05:39 05:39 WBC 14.3 H RBC 4.19 Hgb 12.4 Hct 38.2 L MCV 91.2 MCH 29.6 MCHC 32.5 RDW 13.7 Plt Count 396 MPV 9.2 Neut % (Auto) 62.9 Lymph % (Auto) 23.8 Kaufman % (Auto) 8.1 Eos % (Auto) 3.6 Baso % (Auto) 0.8 Neut # (Auto) 9.0 H Lymph # (Auto) 3.4 Kaufman # (Auto) 1.2 H Eos # (Auto) 0.5 Baso # (Auto) 0.1 Nucleated RBC % (a uto) 0 Nucleated RBCs # 0.0 Sodium 141 Potassium 3.1 L Chloride 103 Carbon Dioxide 24 Anion Gap 17.1 BUN 19 Creatinine 1.4 H Glucose 158 H POC Glucose 132 Calculated Osmolal ity 292 Calcium 8.6 Total Bilirubin 0.5 AST 29 ALT 21 Alkaline Phosphata se 56 Total Protein 7.5 Albumin 3.3 L Globulin 4.2 Misc Test Referenc e 12/26/19 12/26/19 12/26/19 20:33 18:49 16:47 WBC RBC Hgb Hct MCV MCH MCHC RDW Plt Count MPV Neut % (Auto) Lymph % (Auto) Kaufman % (Auto) Eos % (Auto) Baso % (Auto) Neut # (Auto) Lymph # (Auto) Kaufman # (Auto) Eos # (Auto) Baso # (Auto) Nucleated RBC % (a uto) Nucleated RBCs # Sodium Potassium Chloride Carbon Dioxide Anion Gap BUN Creatinine Glucose POC Glucose 184 188 149 Calculated Osmolal ity Calcium Total Bilirubin AST ALT Alkaline Phosphata se Total Protein Albumin Globulin Misc Test Referenc e 12/26/19 12/18/19 10:56 16:08 WBC RBC Hgb Hct MCV MCH MCHC RDW Plt Count MPV Neut % (Auto) Lymph % (Auto) Kaufman % (Auto) Eos % (Auto) Baso % (Auto) Neut # (Auto) Lymph # (Auto) Kaufman # (Auto) Eos # (Auto) Baso # (Auto) Nucleated RBC % (a uto) Nucleated RBCs # Sodium Potassium Chloride Carbon Dioxide Anion Gap BUN Creatinine Glucose POC Glucose 144 Calculated Osmolal ity Calcium Total Bilirubin AST ALT Alkaline Phosphata se Total Protein Albumin Globulin Misc Test Referenc e See comment Vitals: Last Vital Signs Temp 98.2 F 12/27/19 07:31 Pulse 75 12/27/19 07:57 Resp 18 12/27/19 07:57 BP 168/82 12/27/19 07:31 Pulse Ox 95 12/27/19 07:57 Discharge Plan Discharge Patient Disposition: Xfer SNF Condition: Stable Prescriptions: New acetaminophen 325 mg Tablet 650 mg PO Q6H PRN (Reason: Mild/Mod Pain Or Temp >/= 101) Qty: 0 RF: 0 acyclovir sodium 1,000 mg recon soln 1,000 mg IVP Q12H 4 Days Qty: 8 RF: 0 zinc oxide 20 % Ointment 1 applic topical PRN PRN (Reason: Skin Protectant) 30 Days Qty: 1 RF: 0 ciprofloxacin HCl 0.3 % Drops 1 drp eye-both QID 30 Days Qty: 1 RF: 0 pantoprazole 40 mg Tablet,Delayed Release (Dr/Ec) 40 mg PO DAILY 30 Days Qty: 30 RF: 0 Nyamyc 100,000 unit/gram Powder 1 applic topical BID 30 Days Qty: 30 RF: 0 clotrimazole 1 % Cream 1 applic topical BID 30 Days Qty: 1 RF: 0 Levaquin 750 mg tablet 750 mg PO DAILY 7 Days RF: 0 hydralazine 10 mg Tablet 10 mg PO TID 30 Days Qty: 90 RF: 0 Continued glimepiride 1 mg tablet 1 mg PO DAILY RF: 0 docusate sodium [Stool Softener] 100 mg capsule 200 mg PO DAILY RF: 0 venlafaxine 37.5 mg tablet 37.5 mg PO DAILY RF: 0 atorvastatin 20 mg tablet 20 mg PO DAILY RF: 0 Restasis MultiDose 0.05 % drops 1 drop ophthalmic (eye) DAILY RF: 0 oxybutynin chloride 15 mg tablet extended release 24hr 15 mg PO DAILY RF: 0 Miralax 17 gram Powder In Packet 17 g PO DAILY PRN (Reason: Constipation) RF: 0 Cartia XT 120 mg Capsule,Extended Release 24hr 120 mg PO DAILY RF: 0 metformin 500 mg Tablet Extended Release 24 Hr 500 mg PO QPM RF: 0 Discontinued alprazolam 0.5 mg tablet 0.5 mg PO BID PRN (Reason: Anxiety) RF: 0 zolpidem [Ambien] 5 mg tablet 10 mg PO BEDTIME PRN (Reason: Insomnia) RF: 0 hydrocodone-acetaminophen 10-325 mg tablet 1 tab PO Q6H PRN (Reason: Pain) RF: 0 acyclovir 800 mg Tablet 800 mg PO 5XD RF: 0 Discharge Orders: Discharge Order (Routine); Ordered 12/27/19 Ordered By: Geno Wyatt Referrals: [facility] [Outside] Shamika Harman DO [Primary Care Provider] - 7-10 days Amadou Almendarez MD [Physician] - 7-10 days Discharge Diet: GI Soft Discharge Activity: As per PT/OT instructions Activity Restrictions/Additional Instructions: CMP daily with acyclovir dose adjustment Discharge Attestations Time Spent in Discharge Care*: greater than 30 min Quality Metrics Clinical Quality Measures During this hospital stay, did patient experience: None Coding Level of Care Code Acute Manager In Training for Chg Fwd Diagnoses Herpes zoster B02.9 Encephalitis G04.90 Hyponatremia E87.1 UTI (urinary tract infection) N39.0 Tinea B35.9
[2019-12-27 10:58] VITALS: BP 148/75; PULSE 84; RESP 18; TEMP 36.8; O2SAT 93
[2019-12-27] MEDS: potassium chloride oral liq 20 mEq/15 mL UDC 40 MEQ PO (11:15)
[2019-12-27 11:47] LABS: Glucose Point of Care 156 mg/dL (70-110)
[2019-12-27 14:17] VITALS: BP 148/75; PULSE 84; RESP 18; TEMP 36.8; O2SAT 93
== END 2019-12-27 14:20 | disposition skilled nursing facility (03) | DRG 865 ==
LOC: ER 18:10 → MEDSURG 19:10
PROVIDERS: Admitting Provider Internal Medicine; Emergency Provider Emergency Medicine; Family Provider Family Medicine; PCP Family Medicine; Visit Provider Student in an Organized Health Care Education/Training Program
DX: B02.8 Zoster with other complications (principal); G04.90 Encephalitis and encephalomyelitis, unspecified; E87.1 Hypo-osmolality and hyponatremia; N39.0 Urinary tract infection, site not specified; N17.9 Acute kidney failure, unspecified; B35.9 Dermatophytosis, unspecified; H16.8 Other keratitis; I10 Essential (primary) hypertension; R00.0 Tachycardia, unspecified; E78.5 Hyperlipidemia, unspecified; Z87.891 Personal history of nicotine dependence; G89.29 Other chronic pain; M54.9 Dorsalgia, unspecified; G47.00 Insomnia, unspecified; E11.9 Type 2 diabetes mellitus without complications; Z79.84 Long term (current) use of oral hypoglycemic drugs; F32.9 Major depressive disorder, single episode, unspecified; F41.9 Anxiety disorder, unspecified; F03.90 Unspecified dementia, unspecified severity, without behavioral disturbance, psychotic disturbance, mood disturbance, and anxiety
CPT/HCPCS: 12345; 36415; 36416; 36600; 62270; 70450; 70496; 70498; 71045; 77003; 80048; 80051; 80053; 80500; 81001; 81003; 82810; 82945; 82962; 83605; 83880; 83986; 84157; 84484; 85025; 85610; 85730; 87040; 87070; 87075; 87086; 87205; 87635; 87804; 89050; 92523; 93005; 93970; 96105; 96372; 96375; 97110; 97116; 97162; 97530; 99284; J0133; J0360; J0696; J1630; J1650; J1815; J2001; J2270; J2543; J3370; J3480; J3490; J7030; J7040; J7512; Q9967

== ENCOUNTER 2020-03-29 15:21 | Outpatient (CLI) | payer MEDICARE, OTHER, SELFPAY | END 2020-03-29 15:22 | disposition home or self-care (01) | LOC: SPT 15:22 | PROVIDERS: Family Provider Family Medicine; PCP Family Medicine; Visit Provider Podiatrist Foot & Ankle Surgery | DX: Z46.89 Encounter for fitting and adjustment of other specified devices (principal); S91.309D Unspecified open wound, unspecified foot, subsequent encounter; X58.XXXD Exposure to other specified factors, subsequent encounter | CPT/HCPCS: 97760; L4361 ==

== ENCOUNTER 2020-04-05 08:11 | Outpatient (CLI) | payer MEDICARE, OTHER, SELFPAY | END 2020-04-05 08:12 | disposition home or self-care (01) | LOC: WOUND 08:13 | PROVIDERS: Family Provider Family Medicine; PCP Family Medicine; Visit Provider Thoracic Surgery (Cardiothoracic Vascular Surgery) | DX: E11.621 Type 2 diabetes mellitus with foot ulcer (principal); L97.422 Non-pressure chronic ulcer of left heel and midfoot with fat layer exposed; E11.622 Type 2 diabetes mellitus with other skin ulcer; L97.822 Non-pressure chronic ulcer of other part of left lower leg with fat layer exposed | CPT/HCPCS: 11042; 11045; 99203; L3260 ==

== ENCOUNTER 2020-04-08 11:39 | Outpatient (CLI) | payer MEDICARE, OTHER, SELFPAY | END 2020-04-08 11:40 | disposition home or self-care (01) | LOC: WOUND 11:40 | PROVIDERS: Family Provider Family Medicine; PCP Family Medicine; Visit Provider Surgery | DX: E11.621 Type 2 diabetes mellitus with foot ulcer (principal); L97.522 Non-pressure chronic ulcer of other part of left foot with fat layer exposed; E11.622 Type 2 diabetes mellitus with other skin ulcer; L97.822 Non-pressure chronic ulcer of other part of left lower leg with fat layer exposed | CPT/HCPCS: 29581 ==

== ENCOUNTER 2020-04-11 09:28 | Outpatient (CLI) | payer MEDICARE, OTHER, SELFPAY ==
--- NOTE | 2020-04-11 09:40 | USCV_ITS ---
Bud Ivy Age: 84 Gender: M : 1935 Exam Date: 04/11/2020 10:04 Ordering Phys: David Martinez MD (Andy) ([email or web address]) Technologist: Dejon Montana [place] [facility] [place]ication: RT LEG PAD Risk Factors: None Previous Vascular Surgery: None RIGHT LEFT BP: 140.0 / 85.00 BP: 140.0/ 85.00 0 0 Waveform Velocity (cm/s) Velocity (cm/s) Waveform Biphasic 80.4 Iliac Prox Biphasic Iliac Mid 84.1 Biphasic 88.6 Iliac Distal Biphasic 90.5 BOTTLE LABELER Triphasic 92.3 SFA Prox Triphasic 85.9 SFA Mid Triphasic 85.0 SFA Dist Triphasic POP 71.3 Triphasic 58.2 TEST BAKER Triphasic 68.0 DPA 1.1 MAKENZIE FINDINGS Normal resting MAKENZIE on the right side CONCLUSIONS No significant arterial obstruction, based on the above findings. Dr Aura Barr MD [facility] (Electronically Signed) Final Date: 11 April 2020 17:05 S
== END 2020-04-11 09:29 | disposition home or self-care (01) ==
LOC: RAD 09:34
PROVIDERS: Family Provider Family Medicine; PCP Family Medicine; Visit Provider Thoracic Surgery (Cardiothoracic Vascular Surgery)
DX: M79.604 Pain in right leg (principal); L53.9 Erythematous condition, unspecified; L97.919 Non-pressure chronic ulcer of unspecified part of right lower leg with unspecified severity
CPT/HCPCS: 93926

== ENCOUNTER 2020-04-12 10:42 | Outpatient (CLI) | payer MEDICARE, OTHER, SELFPAY | END 2020-04-12 10:43 | disposition home or self-care (01) | LOC: WOUND 10:43 | PROVIDERS: Family Provider Family Medicine; PCP Family Medicine; Visit Provider Thoracic Surgery (Cardiothoracic Vascular Surgery) | DX: E11.621 Type 2 diabetes mellitus with foot ulcer (principal); L97.422 Non-pressure chronic ulcer of left heel and midfoot with fat layer exposed; E11.622 Type 2 diabetes mellitus with other skin ulcer; L97.822 Non-pressure chronic ulcer of other part of left lower leg with fat layer exposed | CPT/HCPCS: 11042; 11045 ==

== ENCOUNTER 2020-04-15 11:17 | Outpatient (CLI) | payer MEDICARE, OTHER, SELFPAY ==
--- NOTE | 2020-04-15 | USCV_ITS ---
Bud Ivy Age: 85 Gender: M : 1935 Exam Date: 04/15/2020 11:47 Ordering Phys: David Martinez MD (Andy) Technologist: Emely Churchill [place] [facility] [place]ication: ULCER Risk Factors: Previous Vascular Surgery: RIGHT LEFT Waveform Velocity (cm/s) Velocity (cm/s) Waveform Iliac Prox 129.5 Biphasic Iliac Mid 134.9 Triphasic Iliac Distal 132.1 Triphasic HANDLE FINISHER 119.6 Triphasic SFA Prox 126.2 Triphasic SFA Mid 131.5 Biphasic SFA Dist 117.0 Biphasic POP 96.0 Triphasic FINDINGS See measurements listed above. ABIs were not done because of the bandage/boot Posterior tibial and dorsalis pedis arteries also were not examined. Normal Doppler flow velocities CONCLUSIONS Patent iliac, femoral and popliteal arteries on the left side with a near normal flow pattern, suggesting no significant arterial obstruction. Could not examine the dorsalis pedis and posterior tibial arteries because of the bandage Dr Aura Barr MD [facility] (Electronically Signed) Final Date: 17 April 2020 20:32 C MICHAELD
--- NOTE | 2020-04-15 11:32 | USCV_ITS ---
Bud Ivy Age: 85 Gender: M : 1935 Exam Date: 04/15/2020 11:47 Ordering Phys: David Martinez MD (Andy) Technologist: Emely Churchill Exam Location: [facility] [place] Indication: ULCER Aortic Velocity @ SMA (cm/s) FINDINGS See measurements listed above. ABIs were not done because of the bandage/boot Posterior tibial and dorsalis pedis arteries also were not examined. Normal Doppler flow velocities CONCLUSIONS Patent iliac, femoral and popliteal arteries on the left side with a near normal flow pattern, suggesting no significant arterial obstruction. Could not examine the dorsalis pedis and posterior tibial arteries because of the bandage Dr Aura Barr MD [facility] Edited by: NADIA Digital Advisor (Electronically Signed) Final Date: 17 April 2020 20:32 Amended: 18 April 2020 06:32 C
== END 2020-04-15 11:18 | disposition home or self-care (01) ==
LOC: RAD 11:23
PROVIDERS: Family Provider Family Medicine; PCP Family Medicine; Visit Provider Thoracic Surgery (Cardiothoracic Vascular Surgery)
DX: L97.919 Non-pressure chronic ulcer of unspecified part of right lower leg with unspecified severity (principal)
CPT/HCPCS: 93926

== ENCOUNTER 2020-04-15 13:14 | Outpatient (CLI) | payer MEDICARE, OTHER, SELFPAY | END 2020-04-15 13:15 | disposition home or self-care (01) | LOC: WOUND 13:16 | PROVIDERS: Family Provider Family Medicine; PCP Family Medicine; Visit Provider Surgery | DX: E11.621 Type 2 diabetes mellitus with foot ulcer (principal); L97.522 Non-pressure chronic ulcer of other part of left foot with fat layer exposed; E11.622 Type 2 diabetes mellitus with other skin ulcer; L97.822 Non-pressure chronic ulcer of other part of left lower leg with fat layer exposed; L97.919 Non-pressure chronic ulcer of unspecified part of right lower leg with unspecified severity | CPT/HCPCS: 11042; 29581; 93926 ==

== ENCOUNTER 2020-04-19 09:53 | Outpatient (CLI) | payer MEDICARE, OTHER, SELFPAY | END 2020-04-19 09:54 | disposition home or self-care (01) | LOC: WOUND 09:55 | PROVIDERS: Family Provider Family Medicine; PCP Family Medicine; Visit Provider Thoracic Surgery (Cardiothoracic Vascular Surgery) | DX: E11.621 Type 2 diabetes mellitus with foot ulcer (principal); L97.422 Non-pressure chronic ulcer of left heel and midfoot with fat layer exposed; E11.622 Type 2 diabetes mellitus with other skin ulcer; L97.822 Non-pressure chronic ulcer of other part of left lower leg with fat layer exposed | CPT/HCPCS: 11042 ==

== ENCOUNTER 2020-04-22 12:55 | Outpatient (CLI) | payer MEDICARE, OTHER, SELFPAY ==
--- NOTE | 2020-04-22 | USCV_ITS ---
EdmondsarahBud rockwell Age: 85 Gender: M : 1935 Exam Date: 04/22/2020 13:33 Ordering Phys: Ac Saenz MD Technologist: Kushal Calixto [place] [facility] [place]: NONHEALING ULCER RIGHT LEFT Brachial 155.00 mmHg Brachial 150.00 mmHg Pressure (mmHg) Waveform Pressure (mmHg) Waveform 208.00 INFORMATION SECURITY ANALYST 150.00 150.00 DPA 188.00 1.34 Ankle/Brachial Index 1.21 89.00 Pre-Exercise Toe Pressure 128.00 0.57 Pre-Exercise Toe/Brachial Index 0.83 FINDINGS Normal resting ABIs on both sides Slightly diminished resting TBI on the right side Normal resting TBI on the left side CONCLUSIONS Features of mild to moderate peripheral artery disease involving the distal vessels on the right side No significant arterial obstruction on the left side Dr Aura Barr MD [facility] (Electronically Signed) Final Date: 23 April 2020 09:36 S
== END 2020-04-22 12:56 | disposition home or self-care (01) ==
LOC: WOUND 13:04
PROVIDERS: Family Provider Family Medicine; PCP Family Medicine; Visit Provider Surgery
DX: E11.621 Type 2 diabetes mellitus with foot ulcer (principal); L97.522 Non-pressure chronic ulcer of other part of left foot with fat layer exposed; E11.622 Type 2 diabetes mellitus with other skin ulcer; L97.822 Non-pressure chronic ulcer of other part of left lower leg with fat layer exposed
CPT/HCPCS: 29581; 93922

== ENCOUNTER 2020-04-26 10:09 | Outpatient (CLI) | payer MEDICARE, OTHER, SELFPAY | END 2020-04-26 10:10 | disposition home or self-care (01) | LOC: WOUND 10:11 | PROVIDERS: Family Provider Family Medicine; PCP Family Medicine; Visit Provider Thoracic Surgery (Cardiothoracic Vascular Surgery) | DX: E11.621 Type 2 diabetes mellitus with foot ulcer (principal); L97.422 Non-pressure chronic ulcer of left heel and midfoot with fat layer exposed; E11.622 Type 2 diabetes mellitus with other skin ulcer; L97.822 Non-pressure chronic ulcer of other part of left lower leg with fat layer exposed | CPT/HCPCS: 11042 ==

== ENCOUNTER 2020-05-03 13:06 | Outpatient (CLI) | payer MEDICARE, OTHER, SELFPAY | END 2020-05-03 13:07 | disposition home or self-care (01) | LOC: WOUND 13:09 | PROVIDERS: Family Provider Family Medicine; PCP Family Medicine; Visit Provider Thoracic Surgery (Cardiothoracic Vascular Surgery) | DX: E11.621 Type 2 diabetes mellitus with foot ulcer (principal); L97.422 Non-pressure chronic ulcer of left heel and midfoot with fat layer exposed; E11.622 Type 2 diabetes mellitus with other skin ulcer; L97.822 Non-pressure chronic ulcer of other part of left lower leg with fat layer exposed | CPT/HCPCS: 11042 ==

== ENCOUNTER 2020-05-10 13:14 | Outpatient (CLI) | payer MEDICARE, OTHER, SELFPAY | END 2020-05-10 13:15 | disposition home or self-care (01) | LOC: WOUND 13:18 | PROVIDERS: Family Provider Family Medicine; PCP Family Medicine; Visit Provider Nurse Practitioner Family | DX: E11.621 Type 2 diabetes mellitus with foot ulcer (principal); L97.422 Non-pressure chronic ulcer of left heel and midfoot with fat layer exposed; E11.622 Type 2 diabetes mellitus with other skin ulcer; L97.822 Non-pressure chronic ulcer of other part of left lower leg with fat layer exposed | CPT/HCPCS: 11042 ==

== ENCOUNTER 2020-05-17 13:52 | Outpatient (CLI) | payer MEDICARE, OTHER, SELFPAY | END 2020-05-17 13:53 | disposition home or self-care (01) | LOC: WOUND 13:53 | PROVIDERS: Family Provider Family Medicine; PCP Family Medicine; Visit Provider Thoracic Surgery (Cardiothoracic Vascular Surgery) | DX: E11.621 Type 2 diabetes mellitus with foot ulcer (principal); L97.422 Non-pressure chronic ulcer of left heel and midfoot with fat layer exposed; E11.622 Type 2 diabetes mellitus with other skin ulcer; L97.822 Non-pressure chronic ulcer of other part of left lower leg with fat layer exposed | CPT/HCPCS: 11042; 11045 ==

== ENCOUNTER 2020-05-19 10:20 | Outpatient (CLI) | payer MEDICARE, OTHER, SELFPAY ==
--- NOTE | 2020-05-19 10:36 | XR_ITS ---
WS: [id number] Left leg including the tibia and fibula, AP and lateral views, 05/19/2020 Clinical Data: PAIN/REDNESS/NON-HEALING ULCER ? OSTEOMYELITIS Comparison: None. Findings: No fractures or dislocations are seen. The tibia and fibula are intact. The soft tissues are normal. There is no evidence of osteomyelitis. There is a prominent tibial tubercle which is a normal variati on. There are anterior superior and anterior inferior left patellar spurs. XR/XR tibia fibula LT 2V [id number] Impression: Negative left leg.
== END 2020-05-19 10:21 | disposition home or self-care (01) ==
LOC: RAD 10:26
PROVIDERS: PCP Family Medicine; Visit Provider Thoracic Surgery (Cardiothoracic Vascular Surgery)
DX: M79.605 Pain in left leg (principal); L53.9 Erythematous condition, unspecified; L97.929 Non-pressure chronic ulcer of unspecified part of left lower leg with unspecified severity
CPT/HCPCS: 73590

== ENCOUNTER 2020-05-20 15:01 | Outpatient (CLI) | payer MEDICARE, OTHER, SELFPAY | END 2020-05-20 15:02 | disposition home or self-care (01) | LOC: WOUND 15:01 | PROVIDERS: PCP Family Medicine; Visit Provider Emergency Medicine | DX: E11.621 Type 2 diabetes mellitus with foot ulcer (principal); L97.522 Non-pressure chronic ulcer of other part of left foot with fat layer exposed; E11.622 Type 2 diabetes mellitus with other skin ulcer; L97.822 Non-pressure chronic ulcer of other part of left lower leg with fat layer exposed | CPT/HCPCS: 29581 ==

== ENCOUNTER 2020-05-24 14:03 | Outpatient (CLI) | payer MEDICARE, OTHER, SELFPAY | END 2020-05-24 14:04 | disposition home or self-care (01) | LOC: WOUND 14:04 | PROVIDERS: PCP Family Medicine; Visit Provider Thoracic Surgery (Cardiothoracic Vascular Surgery) | DX: E11.622 Type 2 diabetes mellitus with other skin ulcer (principal); L97.822 Non-pressure chronic ulcer of other part of left lower leg with fat layer exposed; L97.812 Non-pressure chronic ulcer of other part of right lower leg with fat layer exposed | CPT/HCPCS: 11042; 11045 ==

== ENCOUNTER 2020-05-27 08:17 | Outpatient (RCR) | payer MEDICARE, OTHER, SELFPAY | END 2020-06-22 23:59 | disposition home or self-care (01) | LOC: WOUND 08:17 | PROVIDERS: PCP Family Medicine; Visit Provider Surgery | DX: E11.621 Type 2 diabetes mellitus with foot ulcer (principal); L97.522 Non-pressure chronic ulcer of other part of left foot with fat layer exposed; E11.622 Type 2 diabetes mellitus with other skin ulcer; L97.822 Non-pressure chronic ulcer of other part of left lower leg with fat layer exposed; L97.812 Non-pressure chronic ulcer of other part of right lower leg with fat layer exposed | CPT/HCPCS: 29581 ==

== ENCOUNTER 2020-05-31 13:10 | Outpatient (CLI) | payer MEDICARE, OTHER, SELFPAY | END 2020-05-31 13:11 | disposition home or self-care (01) | LOC: WOUND 13:11 | PROVIDERS: PCP Family Medicine; Visit Provider Thoracic Surgery (Cardiothoracic Vascular Surgery) | DX: E11.622 Type 2 diabetes mellitus with other skin ulcer (principal); L97.822 Non-pressure chronic ulcer of other part of left lower leg with fat layer exposed; L97.812 Non-pressure chronic ulcer of other part of right lower leg with fat layer exposed | CPT/HCPCS: 11042 ==

== ENCOUNTER 2020-06-03 11:00 | Outpatient (CLI) | payer MEDICARE, OTHER, SELFPAY | END 2020-06-03 11:01 | disposition home or self-care (01) | LOC: WOUND 11:01 | PROVIDERS: PCP Family Medicine; Visit Provider Surgery | DX: E11.621 Type 2 diabetes mellitus with foot ulcer (principal); L97.522 Non-pressure chronic ulcer of other part of left foot with fat layer exposed; E11.622 Type 2 diabetes mellitus with other skin ulcer; L97.822 Non-pressure chronic ulcer of other part of left lower leg with fat layer exposed; L97.812 Non-pressure chronic ulcer of other part of right lower leg with fat layer exposed | CPT/HCPCS: 29581 ==

== ENCOUNTER 2020-06-07 13:52 | Outpatient (CLI) | payer MEDICARE, OTHER, SELFPAY | END 2020-06-07 13:53 | disposition home or self-care (01) | LOC: WOUND 13:53 | PROVIDERS: PCP Family Medicine; Visit Provider Thoracic Surgery (Cardiothoracic Vascular Surgery) | DX: E11.622 Type 2 diabetes mellitus with other skin ulcer (principal); L97.822 Non-pressure chronic ulcer of other part of left lower leg with fat layer exposed; L97.812 Non-pressure chronic ulcer of other part of right lower leg with fat layer exposed | CPT/HCPCS: 11042 ==

== ENCOUNTER 2020-06-10 09:55 | Outpatient (CLI) | payer MEDICARE, OTHER, SELFPAY | END 2020-06-10 09:56 | disposition home or self-care (01) | LOC: WOUND 09:56 | PROVIDERS: PCP Family Medicine; Visit Provider Nurse Practitioner Family | DX: E11.621 Type 2 diabetes mellitus with foot ulcer (principal); L97.522 Non-pressure chronic ulcer of other part of left foot with fat layer exposed; E11.622 Type 2 diabetes mellitus with other skin ulcer; L97.822 Non-pressure chronic ulcer of other part of left lower leg with fat layer exposed; L97.812 Non-pressure chronic ulcer of other part of right lower leg with fat layer exposed | CPT/HCPCS: 29581 ==

== ENCOUNTER 2020-06-14 13:35 | Outpatient (CLI) | payer MEDICARE, OTHER, SELFPAY | END 2020-06-14 13:36 | disposition home or self-care (01) | LOC: WOUND 13:36 | PROVIDERS: PCP Family Medicine; Visit Provider Thoracic Surgery (Cardiothoracic Vascular Surgery) | DX: E11.622 Type 2 diabetes mellitus with other skin ulcer (principal); L97.822 Non-pressure chronic ulcer of other part of left lower leg with fat layer exposed; L97.812 Non-pressure chronic ulcer of other part of right lower leg with fat layer exposed | CPT/HCPCS: 11042 ==

== ENCOUNTER 2020-06-21 14:16 | Outpatient (CLI) | payer MEDICARE, OTHER, SELFPAY | END 2020-06-21 14:17 | disposition home or self-care (01) | LOC: WOUND 14:17 | PROVIDERS: PCP Family Medicine; Visit Provider Thoracic Surgery (Cardiothoracic Vascular Surgery) | DX: E11.622 Type 2 diabetes mellitus with other skin ulcer (principal); L97.822 Non-pressure chronic ulcer of other part of left lower leg with fat layer exposed | CPT/HCPCS: 11042 ==

== ENCOUNTER 2020-06-24 09:13 | Outpatient (CLI) | payer MEDICARE, OTHER, SELFPAY | END 2020-06-24 09:14 | disposition home or self-care (01) | LOC: WOUND 09:14 | PROVIDERS: PCP Family Medicine; Visit Provider Surgery | DX: E11.621 Type 2 diabetes mellitus with foot ulcer (principal); L97.522 Non-pressure chronic ulcer of other part of left foot with fat layer exposed; E11.622 Type 2 diabetes mellitus with other skin ulcer; L97.822 Non-pressure chronic ulcer of other part of left lower leg with fat layer exposed; L97.812 Non-pressure chronic ulcer of other part of right lower leg with fat layer exposed | CPT/HCPCS: 29581 ==

== ENCOUNTER 2020-06-28 09:22 | Outpatient (CLI) | payer MEDICARE, OTHER, SELFPAY | END 2020-06-28 09:23 | disposition home or self-care (01) | LOC: WOUND 09:23 | PROVIDERS: PCP Family Medicine; Visit Provider Thoracic Surgery (Cardiothoracic Vascular Surgery) | DX: E11.622 Type 2 diabetes mellitus with other skin ulcer (principal); L97.812 Non-pressure chronic ulcer of other part of right lower leg with fat layer exposed | CPT/HCPCS: 11042 ==

== ENCOUNTER 2020-07-01 08:59 | Outpatient (CLI) | payer MEDICARE, OTHER, SELFPAY | END 2020-07-01 09:00 | disposition home or self-care (01) | LOC: WOUND 09:00 | PROVIDERS: PCP Family Medicine; Visit Provider Surgery | DX: E11.622 Type 2 diabetes mellitus with other skin ulcer (principal); L97.822 Non-pressure chronic ulcer of other part of left lower leg with fat layer exposed | CPT/HCPCS: 29581 ==

== ENCOUNTER 2020-07-05 09:00 | Outpatient (CLI) | payer MEDICARE, OTHER, SELFPAY | END 2020-07-05 09:01 | disposition home or self-care (01) | LOC: WOUND 09:01 | PROVIDERS: PCP Family Medicine; Visit Provider Thoracic Surgery (Cardiothoracic Vascular Surgery) | DX: E11.622 Type 2 diabetes mellitus with other skin ulcer (principal); L97.822 Non-pressure chronic ulcer of other part of left lower leg with fat layer exposed | CPT/HCPCS: 11042 ==

== ENCOUNTER 2020-07-08 12:58 | Outpatient (CLI) | payer MEDICARE, OTHER, SELFPAY | END 2020-07-08 12:59 | disposition home or self-care (01) | LOC: WOUND 12:59 | PROVIDERS: PCP Family Medicine; Visit Provider Surgery | DX: E11.622 Type 2 diabetes mellitus with other skin ulcer (principal); L97.822 Non-pressure chronic ulcer of other part of left lower leg with fat layer exposed | CPT/HCPCS: 29581 ==

== ENCOUNTER 2020-07-12 09:12 | Outpatient (CLI) | payer MEDICARE, OTHER, SELFPAY | END 2020-07-12 09:13 | disposition home or self-care (01) | LOC: WOUND 09:13 | PROVIDERS: PCP Family Medicine; Visit Provider Thoracic Surgery (Cardiothoracic Vascular Surgery) | DX: E11.622 Type 2 diabetes mellitus with other skin ulcer (principal); L97.822 Non-pressure chronic ulcer of other part of left lower leg with fat layer exposed | CPT/HCPCS: 11042; 29581 ==

== ENCOUNTER 2020-07-15 13:51 | Outpatient (CLI) | payer MEDICARE, OTHER, SELFPAY ==
--- NOTE | 2020-07-15 13:59 | USCV_ITS ---
Bud Ivy Age: 85 Gender: M : 1935 Exam Date: 07/15/2020 14:20 Ordering Phys: David Martinez MD (Andy) ([email or web address]) Technologist: Jazmyn Arreola Exam Location: [facility] [place] Indication: HISTORY: Pain, redness nonhelaing ulcer PROCEDURES: Bilateral duplex Venous Insufficiency study of the Deep and Superficial systems was carried out according to normal protocol with the patient in supine positon for deep system and dependent position for the superficial system. FINDINGS: All deep veins demonstrated compressibility without evidence of intraluminal thrombus or increased echogenicity. No evidence of superficial thrombosis in the bilateral saphenous system. No notable reflux was seen at this time. CONCLUSIONS No evidence of DVT in the above-mentioned identifiable veins. No significant venous reflux neither in the deep or superficial veins Venous dimensions and the depth from the surface are as mentioned above Dr Aura Barr MD [facility] (Electronically Signed) Final Date: 18 July 2020 08:49 S
== END 2020-07-15 13:52 | disposition home or self-care (01) ==
LOC: RAD 13:51
PROVIDERS: PCP Family Medicine; Visit Provider Thoracic Surgery (Cardiothoracic Vascular Surgery)
DX: M79.604 Pain in right leg (principal); M79.605 Pain in left leg; L53.9 Erythematous condition, unspecified; L97.929 Non-pressure chronic ulcer of unspecified part of left lower leg with unspecified severity; L97.919 Non-pressure chronic ulcer of unspecified part of right lower leg with unspecified severity
CPT/HCPCS: 93970

== ENCOUNTER 2020-07-15 15:34 | Emergency (ER) | payer MEDICARE, OTHER, SELFPAY ==
[2020-07-15 15:38] VITALS: BP 149/74; PULSE 74; RESP 18; TEMP 36.5; O2SAT 95; BMI 31.1
[2020-07-15] MEDS: meclizine 25 mg tablet PO (16:09)
--- NOTE | 2020-07-15 17:25 | W.ED.DIZZY ---
HPI - Dizziness General: Chief Complaint: Dizziness Stated Complaint: severe vertigo Time Seen by Provider: 07/15/20 16:03 Source: patient and family Mode of arrival: ambulatory Limitations: no limitations History of Present Illness: HPI Narrative: Patient is an 85-year-old gentleman who has a history of vertigo. He was obtaining an ultrasound today and when it tilted to bed back he had an episode of vertigo with associated vomiting. He said this is typical for him other than vomiting. He felt better when he sat up and after he got meclizine. He is currently asymptomatic. He feels fine and does not think he needs investigation. He is declining a work-up and says he is okay to go home. No chest pain, no shortness of breath, no fever. MD elicited complaint: vertigo Pertinent past history: BPPV Timing: sudden onset Severity: severe Description: room spinning Context: change in body position History of similar symptoms: Yes Exacerbating factors: movement/ambulation Relieving factors: remaining still Associated symptoms: Reports nausea and vomiting; Denies abnormal vaginal bleeding, change in hearing, chest pain, chills, cough, diaphoresis, ear discharge, ear pressure, fevers/chills, headache(s), malaise, nasal congestion, palpitations, rash, short of breath, syncope, tinnitus or weakness Associated neuro symptoms: Deny confusion, difficulty speaking, dysphagia, diplopia, extremity weakness, facial numbness, facial weakness, gait changes, numbness in extremities or visual changes Review of Systems General: Reports: 10 or more systems reviewed and unremarkable except in HPI and below Const: Denies: chills, malaise or diaphoresis Eyes: Denies: change in vision or blurry vision ENMT: Denies: ear discharge, change in hearing, tinnitus or nasal congestion Card: Denies: chest pain, palpitations or syncope Resp: Denies: dyspnea, productive cough or non-productive cough GI: Reports: nausea and vomiting; Denies: dysphagia : Denies: flank pain, dysuria, urinary frequency, urinary urgency or urinary hesitancy Musc: Denies: neck pain, back pain or extremity swelling Skin/Breast: Denies: rash, pruritus or erythema Neuro: Reports: dizziness; Denies: headache(s), numbness in extremities or confusion Endo: Denies: polyuria, polydipsia or tired all the time [facility] ED PFSH: Medical History Anxiety Balanitis Balanitis circinata Chronic back pain Depression Diabetes mellitus type 2 in nonobese Hyperlipidemia Insomnia Lower urinary tract symptoms Phimosis Surgical History History of basal cell carcinoma excision REMOVED FROM HEAD History of circumcision History of hernia repair Status post repair of hydrocele Family History Father , AT AGE 73 RENAL FAILURE Chronic kidney disease (CKD) Mother , AT AGE 88 Chronic kidney disease (CKD) Social History Smoking and tobacco status: former smoker Alcohol intake: never Adopted: No Caregiver/support person: No Lives independently: No Household members: spouse Marital status: Current occupational status: retired Physical Exam Const: COMMON NORMALS: no acute distress, average body habitus, patient oriented x3, no limitations, healthy appearing, alert and well nourished HENMT: COMMON NORMALS: normocephalic, atraumatic and moist oral mucous membranes HEAD & SCALP: normocephalic and atraumatic Eye: COMMON NORMALS: Equal, round and reactive pupils present, EOMs intact bilaterally, conjunctivae normal and no scleral icterus CONJUNCTIVA: Yes conjunctivae normal PUPIL: Yes Equal, round and reactive pupils present Neck/C-Spine: COMMON NORMALS: full ROM, supple, no meningeal signs, no JVD and No carotid bruits Resp: COMMON NORMALS: normal respiratory effort, No retractions, No use of accessory muscles, clear to auscultation bilaterally and percussion normal AUSCULTATION: clear to auscultation bilaterally PERCUSSION: percussion normal Cardio: COMMON NORMALS: no JVD, regular rate, regular rhythm, S1 normal heart sound present, S2 normal heart sound present, No gallops present (Cardio), No clicks present (Cardio), No murmurs present (Cardio), No rub (Cardio) and Peripheral pulses 2+ throughout RATE: regular rate RHYTHM: regular rhythm HEART SOUNDS: S1 normal heart sound present and S2 normal heart sound present PERIPHERAL PULSES: Peripheral pulses 2+ throughout GI: COMMON NORMALS: Normal to inspection, nondistended, normoactive bowel sounds present, Soft to palpation, non-tender, No hepatosplenomegaly present, no masses and no bruits PALPATION: Yes Soft to palpation and Yes No hepatosplenomegaly present Extremity: COMMON NORMALS: normal to inspection, full ROM, capillary refill normal, no calf tenderness and no pedal edema Neuro: COMMON NORMALS: patient oriented x3 SENSORIUM/ORIENTATION: Yes alert MENINGEAL SIGNS: Yes no meningeal signs Skin: COMMON NORMALS: no rashes or lesions noted, no wounds, turgor normal, no jaundice, no petechiae and no mottling GENERAL SKIN EXAM: no rashes or lesions noted and turgor normal Course ED course: 85-year-old man with a history of vertigo. He had an episode of vertigo when his head was tilted back for an ultrasound today. Symptoms have since resolved and he feels back to his baseline. He would like to be discharged home. Vital Signs: Vital signs: Vital Signs Temperature 97.7 F 07/15/20 15:38 Pulse Rate 74 07/15/20 15:38 Respiratory Rate 18 07/15/20 15:38 Blood Pressure 149/74 07/15/20 15:38 Pulse Oximetry 95 07/15/20 15:38 MDM - Dizziness MDM Narrative: Medical decision making narrative: Patient with a history of vertigo who had an episode of vertigo today in the hospital. The patient declined work-up and investigations as he felt this was his typical vertigo and wanted to be discharged home. Medical Records: Attestation: I reviewed the patient's medical records. Lab Data: Attestation: I reviewed the patient's lab results. EKG Data^: EKG 1: Attestation: I personally reviewed and interpreted this EKG as follows: EKG interpretation date: 07/15/20 EKG interpretation time: 15:53 Prior EKG tracings: not available for review Interpretation: Sinus rhythm. Right bundle branch block. Heart rate [address] changes. Discharge Plan Discharge Patient Disposition: Home Clinical Impression: Vertigo Condition: Stable Prescriptions: Continued glimepiride 1 mg tablet 1 mg PO DAILY RF: 0 docusate sodium [Stool Softener] 100 mg capsule 200 mg PO DAILY RF: 0 venlafaxine 37.5 mg tablet 37.5 mg PO DAILY RF: 0 atorvastatin 20 mg tablet 20 mg PO DAILY RF: 0 Restasis MultiDose 0.05 % drops 1 drop ophthalmic (eye) DAILY RF: 0 doxycycline hyclate 100 mg capsule 100 mg PO BID 10 Days Qty: 20 RF: 0 (DME) cam boot See Rx Instructions .Route .MEDSUPPLY Qty: 1 RF: 0 oxybutynin chloride 15 mg tablet extended release 24hr 15 mg PO DAILY RF: 0 Miralax 17 gram Powder In Packet 17 g PO DAILY PRN (Reason: Constipation) RF: 0 Cartia XT 120 mg Capsule,Extended Release 24hr 120 mg PO DAILY RF: 0 metformin 500 mg Tablet Extended Release 24 Hr 500 mg PO QPM RF: 0 acetaminophen 325 mg Tablet 650 mg PO Q6H PRN (Reason: Mild/Mod Pain Or Temp >/= 101) Qty: 0 RF: 0 Discharge Orders: Discharge Order (Routine); Ordered 07/15/20 Ordered By: Adryan Ashford Referrals: Shamika Harman DO [Primary Care Provider] - 1-3 days Discharge Diet: Usual diet Discharge Activity: Increase activity as tolerated Patient Instructions: Vertigo (ED) Activity Restrictions/Additional Instructions: Return for any new or worsening symptoms. Follow-up with your primary care provider within 3 days. Continue home medications. Coding Level of Care Code ED Screen Vent Binder for Milagros Fwd Exam Comprehensive
== END 2020-07-15 19:08 | disposition home or self-care (01) ==
PROVIDERS: Emergency Provider Family Medicine; PCP Family Medicine
DX: R42 Dizziness and giddiness (principal); Z79.84 Long term (current) use of oral hypoglycemic drugs; E11.9 Type 2 diabetes mellitus without complications; E78.5 Hyperlipidemia, unspecified; Z87.891 Personal history of nicotine dependence
CPT/HCPCS: 12345; 99281; 99282; J8597

== ENCOUNTER 2020-07-19 09:18 | Outpatient (CLI) | payer MEDICARE, OTHER, SELFPAY | END 2020-07-19 09:19 | disposition home or self-care (01) | LOC: WOUND 09:19 | PROVIDERS: PCP Family Medicine; Visit Provider Thoracic Surgery (Cardiothoracic Vascular Surgery) | DX: E11.622 Type 2 diabetes mellitus with other skin ulcer (principal); L97.822 Non-pressure chronic ulcer of other part of left lower leg with fat layer exposed | CPT/HCPCS: 11042 ==

== ENCOUNTER 2020-07-20 10:03 | Outpatient (CLI) | payer MEDICARE, OTHER, SELFPAY ==
--- NOTE | 2020-07-20 10:11 | XR_ITS ---
WS: [id number] Exam: XR foot RT min 3V* [id number] Date/Time of Exam: 07/20/2020 10:37 AM Reason For Exam: REDNESS/SWELLING/DIABETES-ATTN:2ND TOE No acute fracture or dislocation. There are soft tissue swelling of the second toe. No obvious bone d estruction noted at this time. Advanced degenerative change at the DIP joint of the great toe. Degene rative changes also noted in the IP joints and first MP joint. Degenerative changes also seen in the midfoot joints. Anterior and posterior calcaneal spurs are noted. No radiopaque soft tissue foreign b odies. XR/XR foot RT min 3V* [id number] IMPRESSION: 1. Soft tissue swelling of the second toe but no obvious bone destruction demon strated at this time. 2. No fracture. Degenerative changes as above.
== END 2020-07-20 10:04 | disposition home or self-care (01) ==
LOC: RAD 10:08
PROVIDERS: PCP Family Medicine; Visit Provider Thoracic Surgery (Cardiothoracic Vascular Surgery)
DX: L53.9 Erythematous condition, unspecified (principal); M79.89 Other specified soft tissue disorders; E11.9 Type 2 diabetes mellitus without complications
CPT/HCPCS: 73630

== ENCOUNTER 2020-07-22 15:17 | Outpatient (CLI) | payer MEDICARE, OTHER, SELFPAY | END 2020-07-22 15:18 | disposition home or self-care (01) | LOC: WOUND 15:17 | PROVIDERS: PCP Family Medicine; Visit Provider Surgery | DX: E11.622 Type 2 diabetes mellitus with other skin ulcer (principal); L97.822 Non-pressure chronic ulcer of other part of left lower leg with fat layer exposed | CPT/HCPCS: 29581 ==

== ENCOUNTER 2020-07-26 10:28 | Outpatient (CLI) | payer MEDICARE, OTHER, SELFPAY | END 2020-07-26 10:29 | disposition home or self-care (01) | LOC: WOUND 10:29 | PROVIDERS: PCP Family Medicine; Visit Provider Thoracic Surgery (Cardiothoracic Vascular Surgery) | DX: E11.622 Type 2 diabetes mellitus with other skin ulcer (principal); L97.822 Non-pressure chronic ulcer of other part of left lower leg with fat layer exposed | CPT/HCPCS: 11042 ==

== ENCOUNTER 2020-08-02 10:35 | Outpatient (CLI) | payer MEDICARE, OTHER, SELFPAY | END 2020-08-02 10:36 | disposition home or self-care (01) | LOC: WOUND 10:36 | PROVIDERS: PCP Family Medicine; Visit Provider Thoracic Surgery (Cardiothoracic Vascular Surgery) | DX: E11.622 Type 2 diabetes mellitus with other skin ulcer (principal); L97.822 Non-pressure chronic ulcer of other part of left lower leg with fat layer exposed | CPT/HCPCS: 11042; 88304 ==

== ENCOUNTER 2020-08-10 08:59 | Outpatient (CLI) | payer MEDICARE, OTHER, SELFPAY | END 2020-08-10 09:00 | disposition home or self-care (01) | LOC: WOUND 09:00 | PROVIDERS: PCP Family Medicine; Visit Provider Nurse Practitioner Family | DX: E11.622 Type 2 diabetes mellitus with other skin ulcer (principal); L97.822 Non-pressure chronic ulcer of other part of left lower leg with fat layer exposed | CPT/HCPCS: 11042; L3260 ==

== ENCOUNTER → 2020-08-22 16:30 | Outpatient (BNVA) | payer MEDICARE, OTHER, SELFPAY | PROVIDERS: PCP Registered Nurse; Visit Provider Nurse Practitioner Family | DX: N48.1 Balanitis (principal); R39.9 Unspecified symptoms and signs involving the genitourinary system | CPT/HCPCS: 81003 ==

== ENCOUNTER 2020-08-24 08:54 | Outpatient (CLI) | payer MEDICARE, OTHER, SELFPAY | END 2020-08-24 08:55 | disposition home or self-care (01) | LOC: WOUND 08:57 | PROVIDERS: PCP Registered Nurse; Visit Provider Thoracic Surgery (Cardiothoracic Vascular Surgery) | DX: E11.622 Type 2 diabetes mellitus with other skin ulcer (principal); L97.822 Non-pressure chronic ulcer of other part of left lower leg with fat layer exposed; E11.621 Type 2 diabetes mellitus with foot ulcer; L97.512 Non-pressure chronic ulcer of other part of right foot with fat layer exposed | CPT/HCPCS: 11042 ==

== ENCOUNTER 2020-08-31 08:46 | Outpatient (CLI) | payer MEDICARE, OTHER, SELFPAY | END 2020-08-31 08:47 | disposition home or self-care (01) | LOC: WOUND 08:48 | PROVIDERS: PCP Registered Nurse; Visit Provider Nurse Practitioner Family | DX: E11.622 Type 2 diabetes mellitus with other skin ulcer (principal); L97.825 Non-pressure chronic ulcer of other part of left lower leg with muscle involvement without evidence of necrosis; E11.621 Type 2 diabetes mellitus with foot ulcer; L97.519 Non-pressure chronic ulcer of other part of right foot with unspecified severity | CPT/HCPCS: 11042 ==

== ENCOUNTER 2020-09-07 08:57 | Outpatient (CLI) | payer MEDICARE, OTHER, SELFPAY | END 2020-09-07 08:58 | disposition home or self-care (01) | LOC: WOUND 08:58 | PROVIDERS: PCP Registered Nurse; Visit Provider Thoracic Surgery (Cardiothoracic Vascular Surgery) | DX: I87.2 Venous insufficiency (chronic) (peripheral) (principal); L97.821 Non-pressure chronic ulcer of other part of left lower leg limited to breakdown of skin | CPT/HCPCS: 11042 ==

== ENCOUNTER 2020-09-21 09:02 | Outpatient (CLI) | payer MEDICARE, OTHER, SELFPAY | END 2020-09-21 09:03 | disposition home or self-care (01) | LOC: WOUND 09:03 | PROVIDERS: PCP Registered Nurse; Visit Provider Nurse Practitioner Family | DX: I87.2 Venous insufficiency (chronic) (peripheral) (principal); L97.821 Non-pressure chronic ulcer of other part of left lower leg limited to breakdown of skin | CPT/HCPCS: 11042 ==

== ENCOUNTER 2020-09-28 09:53 | Outpatient (CLI) | payer MEDICARE, OTHER, SELFPAY | END 2020-09-28 09:54 | disposition home or self-care (01) | LOC: WOUND 09:54 | PROVIDERS: PCP Registered Nurse; Visit Provider Thoracic Surgery (Cardiothoracic Vascular Surgery) | DX: I87.2 Venous insufficiency (chronic) (peripheral) (principal); L97.821 Non-pressure chronic ulcer of other part of left lower leg limited to breakdown of skin | CPT/HCPCS: 11042 ==

== ENCOUNTER 2020-10-05 08:56 | Outpatient (CLI) | payer MEDICARE, OTHER, SELFPAY | END 2020-10-05 08:57 | disposition home or self-care (01) | LOC: WOUND 08:57 | PROVIDERS: PCP Registered Nurse; Visit Provider Thoracic Surgery (Cardiothoracic Vascular Surgery) | DX: I87.2 Venous insufficiency (chronic) (peripheral) (principal); L97.821 Non-pressure chronic ulcer of other part of left lower leg limited to breakdown of skin | CPT/HCPCS: 11042 ==

== ENCOUNTER 2020-10-12 09:08 | Outpatient (CLI) | payer MEDICARE, OTHER, SELFPAY | END 2020-10-12 09:09 | disposition home or self-care (01) | LOC: WOUND 09:13 | PROVIDERS: PCP Registered Nurse; Visit Provider Thoracic Surgery (Cardiothoracic Vascular Surgery) | DX: I87.2 Venous insufficiency (chronic) (peripheral) (principal); L97.822 Non-pressure chronic ulcer of other part of left lower leg with fat layer exposed; L98.492 Non-pressure chronic ulcer of skin of other sites with fat layer exposed | CPT/HCPCS: 11042 ==

== ENCOUNTER 2020-10-26 09:29 | Outpatient (CLI) | payer MEDICARE, OTHER, SELFPAY | END 2020-10-26 09:30 | disposition home or self-care (01) | LOC: WOUND 09:30 | PROVIDERS: PCP Registered Nurse; Visit Provider Thoracic Surgery (Cardiothoracic Vascular Surgery) | DX: I87.2 Venous insufficiency (chronic) (peripheral) (principal); L97.822 Non-pressure chronic ulcer of other part of left lower leg with fat layer exposed; L98.492 Non-pressure chronic ulcer of skin of other sites with fat layer exposed | CPT/HCPCS: 11042; 97597; L3260 ==

== ENCOUNTER 2020-11-16 09:39 | Outpatient (CLI) | payer MEDICARE, OTHER, SELFPAY | END 2020-11-16 09:40 | disposition home or self-care (01) | LOC: WOUND 09:39 | PROVIDERS: PCP Registered Nurse; Visit Provider Thoracic Surgery (Cardiothoracic Vascular Surgery) | DX: I87.2 Venous insufficiency (chronic) (peripheral) (principal); L97.822 Non-pressure chronic ulcer of other part of left lower leg with fat layer exposed | CPT/HCPCS: 11042 ==

== ENCOUNTER 2020-11-23 10:01 | Outpatient (CLI) | payer MEDICARE, OTHER, SELFPAY | END 2020-11-23 10:02 | disposition home or self-care (01) | LOC: WOUND 10:02 | PROVIDERS: PCP Registered Nurse; Visit Provider Thoracic Surgery (Cardiothoracic Vascular Surgery) | DX: I87.2 Venous insufficiency (chronic) (peripheral) (principal); L97.822 Non-pressure chronic ulcer of other part of left lower leg with fat layer exposed | CPT/HCPCS: 97597 ==

== ENCOUNTER 2020-11-30 08:55 | Outpatient (CLI) | payer MEDICARE, OTHER, SELFPAY | END 2020-11-30 08:56 | disposition home or self-care (01) | LOC: WOUND 08:56 | PROVIDERS: PCP Registered Nurse; Visit Provider Thoracic Surgery (Cardiothoracic Vascular Surgery) | DX: I87.2 Venous insufficiency (chronic) (peripheral) (principal); L97.922 Non-pressure chronic ulcer of unspecified part of left lower leg with fat layer exposed | CPT/HCPCS: 11042 ==

== ENCOUNTER 2020-12-14 10:23 | Outpatient (CLI) | payer MEDICARE, OTHER, SELFPAY | END 2020-12-14 10:24 | disposition home or self-care (01) | LOC: WOUND 10:24 | PROVIDERS: PCP Registered Nurse; Visit Provider Thoracic Surgery (Cardiothoracic Vascular Surgery) | DX: I87.2 Venous insufficiency (chronic) (peripheral) (principal); L97.822 Non-pressure chronic ulcer of other part of left lower leg with fat layer exposed | CPT/HCPCS: 97597 ==

== ENCOUNTER 2020-12-21 09:27 | Outpatient (CLI) | payer MEDICARE, OTHER, SELFPAY | END 2020-12-21 09:28 | disposition home or self-care (01) | LOC: WOUND 09:28 | PROVIDERS: PCP Registered Nurse; Visit Provider Thoracic Surgery (Cardiothoracic Vascular Surgery) | DX: I87.2 Venous insufficiency (chronic) (peripheral) (principal); L97.822 Non-pressure chronic ulcer of other part of left lower leg with fat layer exposed | CPT/HCPCS: 11042 ==

== ENCOUNTER 2020-12-28 09:29 | Outpatient (CLI) | payer MEDICARE, OTHER, SELFPAY | END 2020-12-28 09:30 | disposition home or self-care (01) | LOC: WOUND 09:30 | PROVIDERS: PCP Registered Nurse; Visit Provider Thoracic Surgery (Cardiothoracic Vascular Surgery) | DX: I87.2 Venous insufficiency (chronic) (peripheral) (principal); L97.822 Non-pressure chronic ulcer of other part of left lower leg with fat layer exposed | CPT/HCPCS: 11042 ==

== ENCOUNTER 2021-01-04 09:14 | Outpatient (CLI) | payer MEDICARE, OTHER, SELFPAY | END 2021-01-04 09:15 | disposition home or self-care (01) | LOC: WOUND 09:15 | PROVIDERS: PCP Registered Nurse; Visit Provider Nurse Practitioner Family | DX: I87.2 Venous insufficiency (chronic) (peripheral) (principal); L97.822 Non-pressure chronic ulcer of other part of left lower leg with fat layer exposed | CPT/HCPCS: 11042 ==

== ENCOUNTER 2021-01-11 09:17 | Outpatient (CLI) | payer MEDICARE, OTHER, SELFPAY | END 2021-01-11 09:18 | disposition home or self-care (01) | LOC: WOUND 09:18 | PROVIDERS: PCP Registered Nurse; Visit Provider Thoracic Surgery (Cardiothoracic Vascular Surgery) | DX: I87.2 Venous insufficiency (chronic) (peripheral) (principal); L97.822 Non-pressure chronic ulcer of other part of left lower leg with fat layer exposed | CPT/HCPCS: 11042 ==

== ENCOUNTER 2021-01-18 09:03 | Outpatient (CLI) | payer MEDICARE, OTHER, SELFPAY | END 2021-01-18 09:04 | disposition home or self-care (01) | LOC: WOUND 09:04 | PROVIDERS: PCP Registered Nurse; Visit Provider Thoracic Surgery (Cardiothoracic Vascular Surgery) | DX: I87.2 Venous insufficiency (chronic) (peripheral) (principal); L97.822 Non-pressure chronic ulcer of other part of left lower leg with fat layer exposed | CPT/HCPCS: 11042 ==

== ENCOUNTER 2021-01-25 09:10 | Outpatient (CLI) | payer MEDICARE, OTHER, SELFPAY | END 2021-01-25 09:11 | disposition home or self-care (01) | LOC: WOUND 09:12 | PROVIDERS: PCP Registered Nurse; Visit Provider Thoracic Surgery (Cardiothoracic Vascular Surgery) | DX: I87.2 Venous insufficiency (chronic) (peripheral) (principal); L97.822 Non-pressure chronic ulcer of other part of left lower leg with fat layer exposed | CPT/HCPCS: 11042 ==

== ENCOUNTER 2021-02-01 09:13 | Outpatient (CLI) | payer MEDICARE, OTHER, SELFPAY | END 2021-02-01 09:14 | disposition home or self-care (01) | LOC: WOUND 09:14 | PROVIDERS: PCP Registered Nurse; Visit Provider Thoracic Surgery (Cardiothoracic Vascular Surgery) | DX: I87.2 Venous insufficiency (chronic) (peripheral) (principal); L97.822 Non-pressure chronic ulcer of other part of left lower leg with fat layer exposed | CPT/HCPCS: 97597 ==

== ENCOUNTER 2021-02-08 09:19 | Outpatient (CLI) | payer MEDICARE, OTHER, SELFPAY | END 2021-02-08 09:20 | disposition home or self-care (01) | LOC: WOUND 09:21 | PROVIDERS: PCP Registered Nurse; Visit Provider Thoracic Surgery (Cardiothoracic Vascular Surgery) | DX: I87.2 Venous insufficiency (chronic) (peripheral) (principal); L97.822 Non-pressure chronic ulcer of other part of left lower leg with fat layer exposed | CPT/HCPCS: 97597 ==

== ENCOUNTER 2021-02-22 09:16 | Outpatient (CLI) | payer MEDICARE, OTHER, SELFPAY | END 2021-02-22 09:17 | disposition home or self-care (01) | LOC: WOUND 09:17 | PROVIDERS: PCP Registered Nurse; Visit Provider Thoracic Surgery (Cardiothoracic Vascular Surgery) | DX: I87.2 Venous insufficiency (chronic) (peripheral) (principal); L97.822 Non-pressure chronic ulcer of other part of left lower leg with fat layer exposed | CPT/HCPCS: 99212 ==

== ENCOUNTER 2021-03-08 09:33 | Outpatient (CLI) | payer MEDICARE, OTHER, SELFPAY | END 2021-03-08 09:34 | disposition home or self-care (01) | LOC: WOUND 09:34 | PROVIDERS: PCP Registered Nurse; Visit Provider Thoracic Surgery (Cardiothoracic Vascular Surgery) | DX: I87.2 Venous insufficiency (chronic) (peripheral) (principal); L97.822 Non-pressure chronic ulcer of other part of left lower leg with fat layer exposed | CPT/HCPCS: 11042 ==

== ENCOUNTER 2021-03-15 09:03 | Outpatient (CLI) | payer MEDICARE, OTHER, SELFPAY | END 2021-03-15 09:04 | disposition home or self-care (01) | LOC: WOUND 09:06 | PROVIDERS: PCP Registered Nurse; Visit Provider Thoracic Surgery (Cardiothoracic Vascular Surgery) | DX: I87.2 Venous insufficiency (chronic) (peripheral) (principal); L97.822 Non-pressure chronic ulcer of other part of left lower leg with fat layer exposed | CPT/HCPCS: 97597 ==

== ENCOUNTER 2021-03-22 09:50 | Outpatient (CLI) | payer MEDICARE, OTHER, SELFPAY | END 2021-03-22 09:51 | disposition home or self-care (01) | LOC: WOUND 09:51 | PROVIDERS: PCP Registered Nurse; Visit Provider Thoracic Surgery (Cardiothoracic Vascular Surgery) | DX: I87.2 Venous insufficiency (chronic) (peripheral) (principal); L97.822 Non-pressure chronic ulcer of other part of left lower leg with fat layer exposed | CPT/HCPCS: 97597 ==

== ENCOUNTER 2021-03-29 10:41 | Outpatient (CLI) | payer MEDICARE, OTHER, SELFPAY | END 2021-03-29 10:42 | disposition home or self-care (01) | LOC: WOUND 10:41 | PROVIDERS: PCP Registered Nurse; Visit Provider Nurse Practitioner Family | DX: I87.2 Venous insufficiency (chronic) (peripheral) (principal); L97.822 Non-pressure chronic ulcer of other part of left lower leg with fat layer exposed | CPT/HCPCS: 11042 ==

== ENCOUNTER 2021-04-12 10:39 | Outpatient (CLI) | payer MEDICARE, OTHER, SELFPAY | END 2021-04-12 10:40 | disposition home or self-care (01) | LOC: WOUND 10:40 | PROVIDERS: PCP Registered Nurse; Visit Provider Thoracic Surgery (Cardiothoracic Vascular Surgery) | DX: I87.2 Venous insufficiency (chronic) (peripheral) (principal); L97.822 Non-pressure chronic ulcer of other part of left lower leg with fat layer exposed; E11.9 Type 2 diabetes mellitus without complications | CPT/HCPCS: 97597 ==

== ENCOUNTER 2021-04-26 10:24 | Outpatient (CLI) | payer MEDICARE, OTHER, SELFPAY | END 2021-04-26 10:25 | disposition home or self-care (01) | LOC: WOUND 10:25 | PROVIDERS: PCP Registered Nurse; Visit Provider Thoracic Surgery (Cardiothoracic Vascular Surgery) | DX: I87.2 Venous insufficiency (chronic) (peripheral) (principal); L97.822 Non-pressure chronic ulcer of other part of left lower leg with fat layer exposed; Z87.891 Personal history of nicotine dependence | CPT/HCPCS: 97597 ==

== ENCOUNTER 2021-05-03 15:50 | Outpatient (CLI) | payer MEDICARE, OTHER, SELFPAY | END 2021-05-03 15:51 | disposition home or self-care (01) | LOC: WOUND 15:51 | PROVIDERS: PCP Registered Nurse; Visit Provider Thoracic Surgery (Cardiothoracic Vascular Surgery) | DX: I87.2 Venous insufficiency (chronic) (peripheral) (principal); L97.822 Non-pressure chronic ulcer of other part of left lower leg with fat layer exposed; Z87.891 Personal history of nicotine dependence | CPT/HCPCS: 97597 ==

== ENCOUNTER 2021-05-10 09:53 | Outpatient (CLI) | payer MEDICARE, OTHER, SELFPAY | END 2021-05-10 09:54 | disposition home or self-care (01) | LOC: WOUND 09:53 | PROVIDERS: PCP Registered Nurse; Visit Provider Thoracic Surgery (Cardiothoracic Vascular Surgery) | DX: I87.2 Venous insufficiency (chronic) (peripheral) (principal); L97.822 Non-pressure chronic ulcer of other part of left lower leg with fat layer exposed; Z87.891 Personal history of nicotine dependence | CPT/HCPCS: 97597 ==

== ENCOUNTER 2021-05-24 09:09 | Outpatient (CLI) | payer MEDICARE, OTHER, SELFPAY | END 2021-05-24 09:10 | disposition home or self-care (01) | LOC: WOUND 09:13 | PROVIDERS: PCP Registered Nurse; Visit Provider Thoracic Surgery (Cardiothoracic Vascular Surgery) | DX: E11.622 Type 2 diabetes mellitus with other skin ulcer (principal); L97.822 Non-pressure chronic ulcer of other part of left lower leg with fat layer exposed; Z87.891 Personal history of nicotine dependence | CPT/HCPCS: 97597 ==

== ENCOUNTER 2021-05-31 09:31 | Outpatient (CLI) | payer MEDICARE, OTHER, SELFPAY | END 2021-05-31 09:32 | disposition home or self-care (01) | LOC: WOUND 09:32 | PROVIDERS: PCP Registered Nurse; Visit Provider Thoracic Surgery (Cardiothoracic Vascular Surgery) | DX: I87.2 Venous insufficiency (chronic) (peripheral) (principal); E11.622 Type 2 diabetes mellitus with other skin ulcer; L97.822 Non-pressure chronic ulcer of other part of left lower leg with fat layer exposed; Z87.891 Personal history of nicotine dependence | CPT/HCPCS: 97597 ==

== ENCOUNTER 2021-06-07 08:02 | Outpatient (CLI) | payer MEDICARE, OTHER, SELFPAY | END 2021-06-22 23:59 | disposition home or self-care (01) | LOC: WOUND 07-10 14:55 | PROVIDERS: PCP Registered Nurse; Visit Provider Nurse Practitioner Family | DX: I87.2 Venous insufficiency (chronic) (peripheral) (principal); E11.622 Type 2 diabetes mellitus with other skin ulcer; L97.822 Non-pressure chronic ulcer of other part of left lower leg with fat layer exposed; Z87.891 Personal history of nicotine dependence | CPT/HCPCS: 97597 ==

== ENCOUNTER 2021-06-14 09:17 | Outpatient (CLI) | payer MEDICARE, OTHER, SELFPAY | END 2021-06-14 09:18 | disposition home or self-care (01) | LOC: WOUND 09:18 | PROVIDERS: PCP Registered Nurse; Visit Provider Thoracic Surgery (Cardiothoracic Vascular Surgery) | DX: L97.822 Non-pressure chronic ulcer of other part of left lower leg with fat layer exposed (principal); Z87.891 Personal history of nicotine dependence | CPT/HCPCS: 97597 ==

== ENCOUNTER 2021-06-28 10:17 | Observation (INO) | payer MEDICARE, OTHER, SELFPAY ==
[2021-06-28] VITALS (9 sets, daily range): BP systolic 112–163; BP diastolic 50–81; PULSE 68–76; RESP 13–20; TEMP 36.4–37.1; O2SAT 94–97; BMI 33.9; BMI 34.0
--- NOTE | 2021-06-28 10:43 | XR_ITS ---
WS: [id number] XR chest 1V portable [id number] REASON FOR EXAM: AMS FINDINGS: The chest is unchanged compared to 12/26/2019. Moderate tortuosity and ectasia of the thoracic aorta. M ild cardiac enlargement. Calcified granulomatous disease in both hemithoraces. No active pulmonary parenchymal or pleural disease. No significant abnormality of the bony thorax for age. XR/XR chest 1V portable [id number] IMPRESSION: No acute chest abnormality.
--- NOTE | 2021-06-28 10:43 | CT_ITS ---
WS: [id number] CT HEAD NONCONTRAST HISTORY: AMS TECHNIQUE: Contiguous axial imaging performed through the brain in 2.5 mm imaging. Bone and soft tiss ue windows. Sagittal and coronal reformats reviewed. All CT scans at [facility] use at least one of these dose optimization techniques: automated exposure control; mA and/or kV adjustment per pa tient size (includes targeted exams where dose is matched to clinical indication); or iterative recon struction. DLP: 868.63 mGy.cm COMPARISON: 12/23/2019 No acute intracranial hemorrhage, midline shift or mass effect. Moderate atrophy and mild chronic microvascular ischemic type changes. No new infarct. There is also mild bilateral cerebellar atrophy. Ventricles: Normal size with no hydrocephalus. No inferior displacement of the cerebellar tonsils. Paranasal sinuses: Mild mucoperiosteal thickening in the ethmoid and maxillary sinuses. Mastoid air cells: Well pneumatized. Calvarium and scalp: Skull is intact with no soft tissue edema or swelling. CT/CT head wo con* [id number] IMPRESSION: 1. No acute intracranial hemorrhage or edema. 2. Moderate atrophy and chronic ischemic disease. Stable since 12/23/2019.
--- NOTE | 2021-06-28 10:46 | ECG_ITS ---
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 Measurements Intervals [place] Rate: 67 P: 39 NM: 187 QRS: 4 QRSD: 160 T: 37 QT: 458 QTc: 487 Interpretive Statements SINUS RHYTHM WITH OCCASIONAL VENTRICULAR PREMATURE COMPLEXES RIGHT BUNDLE BRANCH BLOCK [120+ ms QRS DURATION, UPRIGHT V1, 40+ ms S IN I/aVL/V4/V5/V6] Compared to ECG 12/18/2019 22:50:12 Ventricular premature complex(es) now present Electronically Signed On 06-28-2021 23:01:45 CDT by Aura Barr M.D. [email or web address]
--- NOTE | 2021-06-28 10:46 | W.ED.AMS ---
Documented by User: GIFTY Bertrand 06/28/21 10:55 HPI - Altered Mental Status General: Chief Complaint: Altered Mental Status Stated Complaint: AMS Time Seen by Provider: 06/28/21 10:20 Source: patient and EMS Mode of arrival: EMS Limitations: altered mental status History of Present Illness: HPI narrative: Patient is an 86-year-old male who presents to ED today via EMS for complaints of altered mental status. According to EMS report he was recently seen and treated for a UTI. EMS states family told them he has progressively worsened. During examination patient tells me that he was put on 3 new medications and since then has noticed slurred speech and trouble articulating. He seems to repeat himself several times during exam. He does not complain of pain anywhere. During exam he was noted to have some mild expressive aphasia and tongue deviation to the right. He was noted to have some slurred speech as well. Dr. Carmen also evaluated patient and during his exam daughter was present and told him that the tongue deviation and slurred speech has slowly been worsening over the past 5 to 6 days. Daughter states this morning patient was not able to ambulate. complaint: altered mental status Onset (ago): day(s) Timing confirmed by: family member (daughter ) Consistency of symptoms: Getting Worse Context: change in medication Review of Systems General: Reports: ROS unobtainable due to mental status [facility] ED PFSH: Medical History Anxiety Balanitis Balanitis circinata Chronic back pain Depression Diabetes mellitus type 2 in nonobese Hyperlipidemia Insomnia Lower urinary tract symptoms Phimosis Surgical History History of basal cell carcinoma excision REMOVED FROM HEAD History of circumcision History of hernia repair Status post repair of hydrocele Family History Father , AT AGE 73 RENAL FAILURE Chronic kidney disease (CKD) Mother , AT AGE 88 Chronic kidney disease (CKD) Social History Alcohol intake: never Adopted: No Caregiver/support person: No Lives independently: No Household members: spouse Marital status: Current occupational status: retired Physical Exam Const: COMMON NORMALS: no acute distress and alert EXAM LIMITATIONS: altered mental status GENERAL APPEARANCE: cooperative NUTRITIONAL APPEARANCE: obese ORIENTATION/CONSCIOUSNESS: Yes awake and Yes oriented to person HENMT: COMMON NORMALS: normocephalic and atraumatic HEAD & SCALP: normal to inspection, normocephalic and atraumatic MOUTH: other (tongue deviation to right noted while speaking) TEETH & GINGIVA: Yes poor dentition Eye: COMMON NORMALS: Equal, round and reactive pupils present and EOMs intact bilaterally GENERAL EYE: appearance normal, both eyes and all related structures PUPIL: Yes Equal, round and reactive pupils present Resp: COMMON NORMALS: normal respiratory effort AUSCULTATION: wheezes scattered wheezes Cardio: COMMON NORMALS: regular rate and regular rhythm RATE: regular rate RHYTHM: regular rhythm Extremity: GENERAL: Yes normal exam except as noted and Yes edema Neuro: KENDRICK COMA SCALE: document GCS findings Everett coma scale eye opening: Spontaneous Kendrick coma scale verbal response: Orientated Kendrick coma scale motor response: Obey commands Everett coma scale total score: 15 COMMON NORMALS: moves all extremities and no sensory deficits noted SENSORIUM/ORIENTATION: Yes alert and Yes oriented to person SPEECH: Other neuro speech findings (mildly slurred speech and expressive aphasia) GAIT: Yes Unable to assess gait MOTOR EXAM: 5/5 motor strength present throughout Skin: COMMON NORMALS: no rashes or lesions noted GENERAL SKIN EXAM: no rashes or lesions noted Course ED course: Dr. Carmen also evaluated patient-care will be transferred to him given his neurological findings and need for admission Vital Signs: Vital signs: Vital Signs Temperature 98.7 F 06/28/21 11:01 Pulse Rate 69 06/28/21 12:29 Respiratory Rate 13 06/28/21 12:29 Blood Pressure 112/50 06/28/21 12:29 Pulse Oximetry 95 06/28/21 12:29 MDM - Altered Mental Status Lab Data: Labs: Lab Results 06/28/21 06/28/21 06/28/21 12:56 12:56 12:56 WBC 10.9 10^3/uL H 10 ^3/uL (4.0-10.0) RBC 3.92 10^6/uL L 10 ^6/uL (4.1-5.3) Hgb 11.5 g/dL L g/dL (11.7-16.6) Hct 36.5 % L % (42.0-52.0) MCV 93.1 fl fl (80-94) MCH 29.3 pg pg (28.0-34.0) MCHC 31.5 g/dL g/dL (30.0-36.0) RDW 14.3 % % (12.1-15.1) Plt Count 354 10^3/cmm 10^3 /cmm (130-400) MPV 10.0 fL fL (7.4-10.4) Neut % (Auto) 62.6 % % Lymph % (Auto) 24.5 % % Brule % (Auto) 9.0 % % Eos % (Auto) 2.5 % % Baso % (Auto) 1.1 % % Neut # (Auto) 6.83 10^3/uL 10^3 /uL (1.8-7.7) Lymph # (Auto) 2.7 10^3/uL 10^3/ uL (0.8-4.8) Brule # (Auto) 1.0 10^3/uL H 10^ 3/uL (0.2-0.9) Eos # (Auto) 0.3 10^3/uL 10^3/ uL (0.0-0.8) Baso # (Auto) 0.1 10^3/uL 10^3/ uL (0.0-0.1) Nucleated RBC % (a uto) 0 % % Nucleated RBCs # 0.0 /100WBC /100W BC PT 12.60 SECONDS SEC ONDS (12.1-14.9) INR 0.92 (0.8-1.2) APTT 24.1 SECONDS SECO NDS (23.9-36.7) Sodium 136 mmol/L mmol/L (136-145) Potassium 4.2 mmol/L mmol/L (3.5-5.1) Chloride 102 mmol/L mmol/L (98-107) Carbon Dioxide 23 mmol/L mmol/L (22-29) Anion Gap 15.2 (5-19) BUN 22 mg/dL mg/dL (8-23) Creatinine 1.3 mg/dL H mg/dL (0.7-1.2) GFR Calculation Not Reportable Glucose 93 mg/dL mg/dL (65-115) Calculated Osmolal ity 285 mOsm/kg mOsm/ kg (285-295) Lactic Acid Calcium 8.6 mg/dL mg/dL (8.5-10.5) Total Bilirubin 0.2 mg/dL mg/dL (0.15-1.2) AST 15 U/L U/L (0-40) ALT 11 U/L U/L (0-41) Alkaline Phosphata se 73 IU/L IU/L (40-130) Troponin T Baselin e Total Protein 8.0 g/dL g/dL (6.6-8.7) Albumin 3.6 g/dL g/dL (3.5-5.2) Globulin 4.4 g/dL g/dL (1.3-4.6) Urine Color Urine Appearance Urine pH Ur Specific Gravit y Urine Protein Urine Glucose (UA) Urine Ketones Urine Blood Urine Nitrate Urine Bilirubin Urine Urobilinogen Ur Leukocyte Nidia ase Urine RBC Urine WBC Ur Squamous Epith Cells Amorphous Sediment Urine Bacteria Ur Oval Fat Bodies Urine Opiates Scre en Ur Barbiturates Sc reen Ur Phencyclidine S crn Ur Amphetamines Sc reen U Benzodiazepines Scrn Urine Cocaine Scre en U Marijuana (THC) Screen 06/28/21 06/28/21 06/28/21 12:56 12:56 13:07 WBC RBC Hgb Hct MCV MCH MCHC RDW Plt Count MPV Neut % (Auto) Lymph % (Auto) Brule % (Auto) Eos % (Auto) Baso % (Auto) Neut # (Auto) Lymph # (Auto) Brule # (Auto) Eos # (Auto) Baso # (Auto) Nucleated RBC % (a uto) Nucleated RBCs # PT INR APTT Sodium Potassium Chloride Carbon Dioxide Anion Gap BUN Creatinine GFR Calculation Glucose Calculated Osmolal ity Lactic Acid 1.6 mmol/L mmol/L (0.5-2.2) Calcium Total Bilirubin AST ALT Alkaline Phosphata se Troponin T Baselin e 25 ng/L H ng/L (0-15) Total Protein Albumin Globulin Urine Color Straw (Yellow) Urine Appearance Cloudy (CLEAR) Urine pH 5 (5-7) Ur Specific Gravit y 1.010 (1.005-1.030) Urine Protein Neg (Negative) Urine Glucose (UA) Norm (Normal) Urine Ketones Negative (Negative) Urine Blood Neg (Negative) Urine Nitrate Negative (Negative) Urine Bilirubin Neg (Negative) Urine Urobilinogen Norm mg/dL mg/dL (Negative) Ur Leukocyte Nidia ase 2+ H (Negative) Urine RBC Not Reportable Urine WBC Too numerous to c nt /hpf H /hpf (0-5) Ur Squamous Epith Cells 5-10 /hpf H /hpf (0-5) Amorphous Sediment Not Reportable Urine Bacteria 2+ /hpf H /hpf (NONE) Ur Oval Fat Bodies None /hpf /hpf Urine Opiates Scre en Ur Barbiturates Sc reen Ur Phencyclidine S crn Ur Amphetamines Sc reen U Benzodiazepines Scrn Urine Cocaine Scre en U Marijuana (THC) Screen 06/28/21 13:07 WBC RBC Hgb Hct MCV MCH MCHC RDW Plt Count MPV Neut % (Auto) Lymph % (Auto) Brule % (Auto) Eos % (Auto) Baso % (Auto) Neut # (Auto) Lymph # (Auto) Brule # (Auto) Eos # (Auto) Baso # (Auto) Nucleated RBC % (a uto) Nucleated RBCs # PT INR APTT Sodium Potassium Chloride Carbon Dioxide Anion Gap BUN Creatinine GFR Calculation Glucose Calculated Osmolal ity Lactic Acid Calcium Total Bilirubin AST ALT Alkaline Phosphata se Troponin T Baselin e Total Protein Albumin Globulin Urine Color Urine Appearance Urine pH Ur Specific Gravit y Urine Protein Urine Glucose (UA) Urine Ketones Urine Blood Urine Nitrate Urine Bilirubin Urine Urobilinogen Ur Leukocyte Nidia ase Urine RBC Urine WBC Ur Squamous Epith Cells Amorphous Sediment Urine Bacteria Ur Oval Fat Bodies Urine Opiates Scre en Negative ng/mL ng /mL (Negative) Ur Barbiturates Sc reen Negative ng/mL ng /mL (Negative) Ur Phencyclidine S crn Negative ng/mL ng /mL (Negative) Ur Amphetamines Sc reen Negative ng/mL ng /mL (Negative) U Benzodiazepines Scrn Negative ng/mL ng /mL (Negative) Urine Cocaine Scre en Negative ng/mL ng /mL (Negative) U Marijuana (THC) Screen Negative ng/mL ng /mL (Negative) Discharge Plan Discharge Clinical Impression: Stroke-like symptoms, Generalized weakness, Dysphagia Condition: Stable Prescriptions: No Action mupirocin 2 % ointment 1 applic topical BID Qty: 22 RF: 0 glimepiride 1 mg tablet 1 mg PO DAILY RF: 0 docusate sodium [Stool Softener] 100 mg capsule 200 mg PO DAILY RF: 0 venlafaxine 37.5 mg tablet 37.5 mg PO DAILY RF: 0 atorvastatin 20 mg tablet 20 mg PO DAILY RF: 0 (DME) cam boot See Rx Instructions .Route .MEDSUPPLY Qty: 1 RF: 0 ketoconazole 2 % cream 1 applic topical BID Qty: 60 RF: 1 lidocaine-epinephrine 1 %-1:100,000 solution 1 ml SUBCUT ONCE Qty: 20 RF: 0 gabapentin 100 mg capsule 100 mg PO TID RF: 0 oxybutynin chloride 15 mg tablet extended release 24hr 15 mg PO DAILY RF: 0 Miralax 17 gram Powder In Packet 17 g PO DAILY PRN (Reason: Constipation) RF: 0 Cartia XT 120 mg Capsule,Extended Release 24hr 120 mg PO DAILY RF: 0 metformin 500 mg Tablet Extended Release 24 Hr 500 mg PO QPM RF: 0 acetaminophen 325 mg Tablet 650 mg PO Q6H PRN (Reason: Mild/Mod Pain Or Temp >/= 101) Qty: 0 RF: 0 Referrals: Ghazal Segura FNP [Primary Care Provider] - Coding Level of Care Code ED Orthopedically Impaired Teacher for Chg Fwd Exam Comprehensive Documented by User: Grzegorz Carmen MD 06/28/21 13:43 HPI - Altered Mental Status General: Chief Complaint: Altered Mental Status Stated Complaint: AMS Time Seen by Provider: 06/28/21 10:20 History of Present Illness: Associated symptoms: Deny depression Review of Systems General: Reports: 10 or more systems reviewed and unremarkable except in HPI and below Const: Denies: fever(s), chills, body aches or fatigue Eyes: Denies: change in vision or blurry vision ENMT: Denies: throat pain, hoarseness or mouth pain Card: Denies: chest pain, palpitations, irregular heart rhythm, edema, swelling of feet/ankles or lightheadedness Resp: Denies: dyspnea, productive cough, non-productive cough, wheezing or pain on inspiration GI: Denies: abdominal pain, nausea or vomiting : Denies: flank pain, dysuria, urinary frequency, urinary urgency or urinary hesitancy Musc: Denies: neck pain, back pain, extremity pain, extremity swelling, joint pain, joint swelling, joint redness, joint warmth or limited range of motion Skin/Breast: Denies: rash, pruritus, erythema or skin tenderness Neuro: Reports: difficulty walking, Slurred speech present and difficulty communicating thoughts; Denies: headache(s), numbness in extremities or weakness in extremities Psych: Denies: anxiety or depression PFSH ED PFSH: Medical History Anxiety Balanitis Balanitis circinata Chronic back pain Depression Diabetes mellitus type 2 in nonobese Hyperlipidemia Insomnia Lower urinary tract symptoms Phimosis Surgical History History of basal cell carcinoma excision REMOVED FROM HEAD History of circumcision History of hernia repair Status post repair of hydrocele Family History Father , AT AGE 73 RENAL FAILURE Chronic kidney disease (CKD) Mother , AT AGE 88 Chronic kidney disease (CKD) Social History Alcohol intake: never Adopted: No Caregiver/support person: No Lives independently: No Household members: spouse Marital status: Current occupational status: retired Physical Exam Const: COMMON NORMALS: no acute distress, average body habitus, patient oriented x3, no limitations, healthy appearing, alert and well nourished HENMT: COMMON NORMALS: normocephalic, atraumatic, hearing grossly normal bilaterally, external ears normal, EAC's normal, TM's normal bilaterally, Normal external nose present, Normal nasal mucous membranes and turbinates present, moist oral mucous membranes, oropharynx normal, dentition normal and gingiva normal HEAD & SCALP: normocephalic and atraumatic NOSE: Normal external nose present and Normal nasal mucous membranes and turbinates present EXTERNAL EAR: Yes external ears normal EXTERNAL AUDITORY CANAL: EAC's normal TYMPANIC MEMBRANE: TM's normal bilaterally Neck/C-Spine: COMMON NORMALS: full ROM, no lymphadenopathy, supple, no meningeal signs, no JVD, Thyroid normal and No carotid bruits THYROID: Thyroid normal Chest: COMMONS NORMALS: normal inspection of the chest, normal palpation of entire chest wall, normal inspection of the breasts and normal palpation of the breasts Resp: COMMON NORMALS: normal respiratory effort, No retractions, No use of accessory muscles, clear to auscultation bilaterally and percussion normal AUSCULTATION: clear to auscultation bilaterally PERCUSSION: percussion normal Cardio: COMMON NORMALS: no JVD, regular rate, regular rhythm, S1 normal heart sound present, S2 normal heart sound present, No gallops present (Cardio), No clicks present (Cardio), No murmurs present (Cardio), No rub (Cardio) and Peripheral pulses 2+ throughout RATE: regular rate RHYTHM: regular rhythm HEART SOUNDS: S1 normal heart sound present and S2 normal heart sound present PERIPHERAL PULSES: Peripheral pulses 2+ throughout GI: COMMON NORMALS: Normal to inspection, nondistended, normoactive bowel sounds present, Soft to palpation, non-tender, No hepatosplenomegaly present, no masses and no bruits PALPATION: Yes Soft to palpation and Yes No hepatosplenomegaly present : COMMON NORMALS: Yes no CVA tenderness BLADDER/KIDNEY EXAM: Yes no CVA tenderness Back/Pelvis: COMMON NORMALS: no CVA tenderness, thoracic and lumbar spine normal to inspection, no thoracic nor lumbar tenderness, thoraco-lumbar ROM normal and straight leg raise negative bilaterally Extremity: COMMON NORMALS: normal to inspection, full ROM, capillary refill normal, no joint enlargement, no clubbing, cyanosis or edema, no calf tenderness and no pedal edema Neuro: COMMON NORMALS: patient oriented x3, moves all extremities and no sensory deficits noted SENSORIUM/ORIENTATION: Yes alert MENINGEAL SIGNS: Yes no meningeal signs CRANIAL NERVES: Yes CN XII (hypoglossal) CN XII findings: deviation of tongue to the right Course Consultations: Consultation #1: I spoke with Dr. Canales neurology. She states she will follow along with consult if needed. Request that hospitalist admit for further evaluation. Time: 13:38 Consultation #2: I did discuss at length with Dr. Foreman hospitalist who agrees to admit the patient for further evaluation treat Time: 13:39 Vital Signs: Vital signs: Vital Signs Temperature 98.7 F 06/28/21 11:01 Pulse Rate 69 06/28/21 12:29 Respiratory Rate 13 06/28/21 12:29 Blood Pressure 112/50 06/28/21 12:29 Pulse Oximetry 95 06/28/21 12:29 MDM - Altered Mental Status MDM Narrative: Medical decision making narrative: Patient is an 86-year-old male who presents to ED today via EMS for complaints of altered mental status. According to EMS report he was recently seen and treated for a UTI. EMS states family told them he has progressively worsened. During examination patient tells me that he was put on 3 new medications and since then has noticed slurred speech and trouble articulating. He seems to repeat himself several times during exam. He does not complain of pain anywhere. During exam he was noted to have some mild expressive aphasia and tongue deviation to the right. He was noted to have some slurred speech as well. Dr. Carmen also evaluated patient and during his exam daughter was present and told him that the tongue deviation and slurred speech has slowly been worsening over the past 5 to 6 days. Daughter states this morning patient was not able to ambulate. I spoke with Dr. Canales neurology. She states she will follow along with consult if needed. Request that hospitalist admit for further evaluation. I did discuss at length with Dr. Foreman hospitalist who agrees to admit the patient for further evaluation treat Lab Data: Labs: Lab Results 06/28/21 06/28/21 06/28/21 12:56 12:56 12:56 WBC 10.9 10^3/uL H 10 ^3/uL (4.0-10.0) RBC 3.92 10^6/uL L 10 ^6/uL (4.1-5.3) Hgb 11.5 g/dL L g/dL (11.7-16.6) Hct 36.5 % L % (42.0-52.0) MCV 93.1 fl fl (80-94) MCH 29.3 pg pg (28.0-34.0) MCHC 31.5 g/dL g/dL (30.0-36.0) RDW 14.3 % % (12.1-15.1) Plt Count 354 10^3/cmm 10^3 /cmm (130-400) MPV 10.0 fL fL (7.4-10.4) Neut % (Auto) 62.6 % % Lymph % (Auto) 24.5 % % Brule % (Auto) 9.0 % % Eos % (Auto) 2.5 % % Baso % (Auto) 1.1 % % Neut # (Auto) 6.83 10^3/uL 10^3 /uL (1.8-7.7) Lymph # (Auto) 2.7 10^3/uL 10^3/ uL (0.8-4.8) Brule # (Auto) 1.0 10^3/uL H 10^ 3/uL (0.2-0.9) Eos # (Auto) 0.3 10^3/uL 10^3/ uL (0.0-0.8) Baso # (Auto) 0.1 10^3/uL 10^3/ uL (0.0-0.1) Nucleated RBC % (a uto) 0 % % Nucleated RBCs # 0.0 /100WBC /100W BC PT 12.60 SECONDS SEC ONDS (12.1-14.9) INR 0.92 (0.8-1.2) APTT 24.1 SECONDS SECO NDS (23.9-36.7) Sodium 136 mmol/L mmol/L (136-145) Potassium 4.2 mmol/L mmol/L (3.5-5.1) Chloride 102 mmol/L mmol/L (98-107) Carbon Dioxide 23 mmol/L mmol/L (22-29) Anion Gap 15.2 (5-19) BUN 22 mg/dL mg/dL (8-23) Creatinine 1.3 mg/dL H mg/dL (0.7-1.2) GFR Calculation Not Reportable Glucose 93 mg/dL mg/dL (65-115) Calculated Osmolal ity 285 mOsm/kg mOsm/ kg (285-295) Lactic Acid Calcium 8.6 mg/dL mg/dL (8.5-10.5) Total Bilirubin 0.2 mg/dL mg/dL (0.15-1.2) AST 15 U/L U/L (0-40) ALT 11 U/L U/L (0-41) Alkaline Phosphata se 73 IU/L IU/L (40-130) Troponin T Baselin e Total Protein 8.0 g/dL g/dL (6.6-8.7) Albumin 3.6 g/dL g/dL (3.5-5.2) Globulin 4.4 g/dL g/dL (1.3-4.6) Urine Color Urine Appearance Urine pH Ur Specific Gravit y Urine Protein Urine Glucose (UA) Urine Ketones Urine Blood Urine Nitrate Urine Bilirubin Urine Urobilinogen Ur Leukocyte Nidia ase Urine RBC Urine WBC Ur Squamous Epith Cells Amorphous Sediment Urine Bacteria Ur Oval Fat Bodies Urine Opiates Scre en Ur Barbiturates Sc reen Ur Phencyclidine S crn Ur Amphetamines Sc reen U Benzodiazepines Scrn Urine Cocaine Scre en U Marijuana (THC) Screen 06/28/21 06/28/21 06/28/21 12:56 12:56 13:07 WBC RBC Hgb Hct MCV MCH MCHC RDW Plt Count MPV Neut % (Auto) Lymph % (Auto) Brule % (Auto) Eos % (Auto) Baso % (Auto) Neut # (Auto) Lymph # (Auto) Brule # (Auto) Eos # (Auto) Baso # (Auto) Nucleated RBC % (a uto) Nucleated RBCs # PT INR APTT Sodium Potassium Chloride Carbon Dioxide Anion Gap BUN Creatinine GFR Calculation Glucose Calculated Osmolal ity Lactic Acid 1.6 mmol/L mmol/L (0.5-2.2) Calcium Total Bilirubin AST ALT Alkaline Phosphata se Troponin T Baselin e 25 ng/L H ng/L (0-15) Total Protein Albumin Globulin Urine Color Straw (Yellow) Urine Appearance Cloudy (CLEAR) Urine pH 5 (5-7) Ur Specific Gravit y 1.010 (1.005-1.030) Urine Protein Neg (Negative) Urine Glucose (UA) Norm (Normal) Urine Ketones Negative (Negative) Urine Blood Neg (Negative) Urine Nitrate Negative (Negative) Urine Bilirubin Neg (Negative) Urine Urobilinogen Norm mg/dL mg/dL (Negative) Ur Leukocyte Nidia ase 2+ H (Negative) Urine RBC Not Reportable Urine WBC Too numerous to c nt /hpf H /hpf (0-5) Ur Squamous Epith Cells 5-10 /hpf H /hpf (0-5) Amorphous Sediment Not Reportable Urine Bacteria 2+ /hpf H /hpf (NONE) Ur Oval Fat Bodies None /hpf /hpf Urine Opiates Scre en Ur Barbiturates Sc reen Ur Phencyclidine S crn Ur Amphetamines Sc reen U Benzodiazepines Scrn Urine Cocaine Scre en U Marijuana (THC) Screen 06/28/21 13:07 WBC RBC Hgb Hct MCV MCH MCHC RDW Plt Count MPV Neut % (Auto) Lymph % (Auto) Brule % (Auto) Eos % (Auto) Baso % (Auto) Neut # (Auto) Lymph # (Auto) Brule # (Auto) Eos # (Auto) Baso # (Auto) Nucleated RBC % (a uto) Nucleated RBCs # PT INR APTT Sodium Potassium Chloride Carbon Dioxide Anion Gap BUN Creatinine GFR Calculation Glucose Calculated Osmolal ity Lactic Acid Calcium Total Bilirubin AST ALT Alkaline Phosphata se Troponin T Baselin e Total Protein Albumin Globulin Urine Color Urine Appearance Urine pH Ur Specific Gravit y Urine Protein Urine Glucose (UA) Urine Ketones Urine Blood Urine Nitrate Urine Bilirubin Urine Urobilinogen Ur Leukocyte Nidia ase Urine RBC Urine WBC Ur Squamous Epith Cells Amorphous Sediment Urine Bacteria Ur Oval Fat Bodies Urine Opiates Scre en Negative ng/mL ng /mL (Negative) Ur Barbiturates Sc reen Negative ng/mL ng /mL (Negative) Ur Phencyclidine S crn Negative ng/mL ng /mL (Negative) Ur Amphetamines Sc reen Negative ng/mL ng /mL (Negative) U Benzodiazepines Scrn Negative ng/mL ng /mL (Negative) Urine Cocaine Scre en Negative ng/mL ng /mL (Negative) U Marijuana (THC) Screen Negative ng/mL ng /mL (Negative) Imaging Data^: CXR: Attestation: I personally reviewed and interpreted this imaging study as follows: Radiologist's impression: IMPRESSION: No acute chest abnormality. CT Head: Attestation: I personally reviewed and interpreted this imaging study as follows: Radiologist's impression: IMPRESSION: 1. No acute intracranial hemorrhage or edema. 2. Moderate atrophy and chronic ischemic disease. Stable since 12/23/2019. EKG Data^: EKG 1: Attestation: I personally reviewed and interpreted this EKG as follows: EKG interpretation date: 06/28/21 EKG interpretation time: 11:14 Prior EKG tracings: available for review Interpretation: Sinus rhythm with occasional PVC heart rate 67, right bundle branch block Discharge Plan Discharge Clinical Impression: Stroke-like symptoms, Generalized weakness, Dysphagia Condition: Stable Prescriptions: No Action mupirocin 2 % ointment 1 applic topical BID Qty: 22 RF: 0 glimepiride 1 mg tablet 1 mg PO DAILY RF: 0 docusate sodium [Stool Softener] 100 mg capsule 200 mg PO DAILY RF: 0 venlafaxine 37.5 mg tablet 37.5 mg PO DAILY RF: 0 atorvastatin 20 mg tablet 20 mg PO DAILY RF: 0 (DME) cam boot See Rx Instructions .Route .MEDSUPPLY Qty: 1 RF: 0 ketoconazole 2 % cream 1 applic topical BID Qty: 60 RF: 1 lidocaine-epinephrine 1 %-1:100,000 solution 1 ml SUBCUT ONCE Qty: 20 RF: 0 gabapentin 100 mg capsule 100 mg PO TID RF: 0 oxybutynin chloride 15 mg tablet extended release 24hr 15 mg PO DAILY RF: 0 Miralax 17 gram Powder In Packet 17 g PO DAILY PRN (Reason: Constipation) RF: 0 Cartia XT 120 mg Capsule,Extended Release 24hr 120 mg PO DAILY RF: 0 metformin 500 mg Tablet Extended Release 24 Hr 500 mg PO QPM RF: 0 acetaminophen 325 mg Tablet 650 mg PO Q6H PRN (Reason: Mild/Mod Pain Or Temp >/= 101) Qty: 0 RF: 0 Referrals: Ghazal Segura FNP [Primary Care Provider] - Coding Level of Care Code ED Orthopedically Impaired Teacher for Chg Fwd Exam Comprehensive
[2021-06-28 13:14] LABS: Basophils # 0.1 10^3/uL (0.0-0.1); Basophils % 1.1 %; Eosinophils # 0.3 10^3/uL (0.0-0.8); Eosinophils % 2.5 %; Hematocrit 36.5 % (42.0-52.0); Hemoglobin 11.5 g/dL (11.7-16.6); Lymphocytes # 2.7 10^3/uL (0.8-4.8); Lymphocytes % 24.5 %; Mean Corpuscular HGB Conc 31.5 g/dL (30.0-36.0); Mean Corpuscular Hemoglobin 29.3 pg (28.0-34.0); Mean Corpuscular Volume 93.1 fl (80-94); Neutrophils # 6.83 10^3/uL (1.8-7.7); Neutrophils % 62.6 %; Nucleated Red Blood Cells % 0 %; Platelet Count 354 10^3/cmm (130-400); Red Blood Count 3.92 10^6/uL (4.1-5.3); Red Cell Distribution Width 14.3 % (12.1-15.1); White Blood Count 10.9 10^3/uL (4.0-10.0)
[2021-06-28 13:18] LABS: Charge for UA Resulting for Rev
[2021-06-28 13:20] LABS: INR 0.92 (0.8-1.2)
[2021-06-28 13:21] LABS: Partial Thromboplastin Time 24.1 SECONDS (23.9-36.7)
[2021-06-28 13:24] LABS: Lactic Sepsis W/Reflex 1.6 mmol/L (0.5-2.2)
[2021-06-28 13:26] LABS: Alanine Aminotransferase 11 U/L (0-41); Albumin Level 3.6 g/dL (3.5-5.2); Alkaline Phosphatase 73 IU/L (40-130); Anion Gap 15.2 (5-19); Aspartate Amino Transferase 15 U/L (0-40); Blood Urea Nitrogen 22 mg/dL (8-23); Calcium 8.6 mg/dL (8.5-10.5); Carbon Dioxide 23 mmol/L (22-29); Chloride 102 mmol/L (98-107); Globulin 4.4 g/dL (1.3-4.6); Glucose 93 mg/dL (65-115); Osmolality Calculated 285 mOsm/kg (285-295); Potassium 4.2 mmol/L (3.5-5.1); Sodium 136 mmol/L (136-145); Total Bilirubin 0.2 mg/dL (0.15-1.2)
[2021-06-28 13:27] LABS: Troponin(5th) Baseline 25 ng/L (0-15)
[2021-06-28 13:33] LABS: Amphetamines Screen Urine Negative (Negative); Barbiturates Screen Urine Negative (Negative); Benzodiazepines Screen Urine Negative (Negative); Cocaine Screen Urine Negative (Negative); Opiate Screen Urine Negative (Negative); PCP Screen Urine Negative (Negative); THC Screen Urine Negative (Negative)
[2021-06-28 13:35] LABS: Add Urine Microscopic? YES; Bacteria Urine 2+ /hpf; Bilirubin Urine Neg (Negative); Blood Urine Neg (Negative); Glucose Urine UA Norm (Normal); Ketones Urine Negative (Negative); Leukocyte Esterase Urine 2+ (Negative); Nitrate Urine Negative (Negative); Protein Urine Neg (Negative); Urine Appearance Cloudy (CLEAR); Urine Color Straw (Yellow); Urobilinogen Urine Norm (Negative); WBC Urine TOO NUMEROUS TO CNT /hpf (0-5); pH Urine 5 (5-7)
[2021-06-28 13:36] LABS: Add Urine Culture? Yes
--- NOTE | 2021-06-28 13:55 | P.HP_ITS ---
Providers/Chief Complaint Primary Care Provider: CHEYENNE Cabrales Chief Complaint: AMS History of Present Illness Bud Ivy is a 86 year old male who presented with CC of weakness, not able to talk and walk. Daughter is stating that his symptoms started on last week when he became extremley weak and could not stand up from sitting position while eating. He also struggled to put bites in his mouth. He attributed his symptoms to the side effect of the medication that he was recently started on by the physician trinh Smith. His symptoms did not improve and got worse over the weekend. On Saturday he was taken to the [facility] ER where he was diagnosed with UTI. Today daughter brought him to the [facility] ER when he was struggling to speak properly, he was finding frogs in his home with torch light in his hand. In the ER his NIH was 4, Dr Canales recommended against Tpa and advised stroke workup. Pt is alert and oriented and has mild expressive aphasia. NIH 5, Pt did ask me for how long his speech will stay affected He is able to move all extremities, right tongue deviation. 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 he is vaccinated for covid 19, got 2 doses of mRna vaccine, no booster dose yet Review of Systems Const: Reports: body aches and malaise; Denies: fever(s) Eyes: Reports: blurry vision ENMT: Denies: throat pain Card: Denies: chest pain Resp: Denies: dyspnea GI: Denies: abdominal pain : Denies: flank pain Musc: Reports: muscle cramps and muscle weakness Skin/Breast: Reports: lesions and surgical incision Neuro: Reports: weakness in extremities, lack of coordination, difficulty w alking, confusion, behavioral changes, Slurred speech present and difficulty communicating thoughts; Denies: headache(s) Psych: Denies: anxiety Endo: Denies: polyuria Miah/Lymph: Denies: easy bruising All/Imm: Denies: urticaria Medications/Allergies Home Medications Medication Instructions Recorded Confirmed Last Taken Type atorvastatin 20 mg tablet 20 mg PO DAILY 10/22/19 06/28/21 Unknown History glimepiride 1 mg tablet 1 mg PO QAM 10/22/19 06/28/21 Unknown History venlafaxine 37.5 mg tablet 37.5 mg PO BID 10/22/19 06/28/21 Unknown History metformin 1,000 mg PO QPM 12/22/19 06/28/21 Unknown History oxybutynin chloride 30 mg PO BEDTIME 12/22/19 06/28/21 Unknown History cam boot #1 ea 03/29/20 06/28/21 Unknown Rx alprazolam 0.5 mg PO BID PRN 06/28/21 06/28/21 Unknown History amitriptyline 75 mg PO BEDTIME 06/28/21 06/28/21 Unknown History cephalexin 500 mg PO BID 06/28/21 06/28/21 Unknown History cholecalciferol (vitamin D3) 25 mcg PO DAILY 06/28/21 06/28/21 Unknown History [Vitamin D3] diltiazem HCl 120 mg PO DAILY@17 06/28/21 06/28/21 Unknown History fluticasone propionate [Flonase] 2 spray INTRANASAL DAILY 06/28/21 06/28/21 Unknown History hydralazine 10 mg PO TID 06/28/21 06/28/21 Unknown History lidocaine-prilocaine 1 applic TOPICAL . DIRECTED 06/28/21 06/28/21 Unknown History meclizine 25 mg PO BID PRN 06/28/21 06/28/21 Unknown History mupirocin 1 applic TOPICAL BID PRN 06/28/21 06/28/21 Unknown History naproxen sodium [Aleve] 220 - 440 mg PO Q12H PRN 06/28/21 06/28/21 Unknown History ondansetron 4 mg PO Q8H PRN 06/28/21 06/28/21 Unknown History pregabalin 50 mg PO DAILY@06/28/21 06/28/21 Unknown History tolterodine 4 mg PO QPM 06/28/21 06/28/21 Unknown History zolpidem 10 mg PO BEDTIME PRN 06/28/21 06/28/21 Unknown History Allergies Allergy/AdvReac Type Severity Reaction Status Date / Time clindamycin Allergy Unknown Verified 06/28/21 14:01 PFSH Acute PFSH: Medical History (Updated 06/28/21 @ 17:00 by Quang Foreman MD) Anxiety Balanitis Balanitis circinata Chronic back pain 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 Chronic ulcer of toe of right foot with fat layer exposed Depression 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 Exposure keratitis Hyperlipidemia Insomnia Lower urinary tract symptoms Onychodystrophy Peripheral arterial disease Phimosis Surgical History History of basal cell carcinoma excision REMOVED FROM HEAD History of circumcision History of hernia repair Status post repair of hydrocele Family History Father , AT AGE 73 RENAL FAILURE Chronic kidney disease (CKD) Mother , AT AGE 88 Chronic kidney disease (CKD) Social History Alcohol intake: never Adopted: No Caregiver/support person: No Lives independently: No Household members: spouse Marital status: Current occupational status: retired Vitals/I&O/Wt Last Vital Signs Temp 98.7 F 06/28/21 11:01 Pulse 69 06/28/21 12:29 Resp 13 06/28/21 12:29 BP 112/50 06/28/21 12:29 Pulse Ox 95 06/28/21 12:29 Weight last 48 hrs Weight 113.398 kg Physical Exam Narrative: EXAM NARRATIVE: Patient was laying comfortably in his bed was able to get up on his own without needing any assistance Was saturating well on room air Appears stated age, euvolemic, male Very pleasant and cooperative during my evaluation Pupils equal and reactive Right-sided facial droop, tongue is deviating towards the right side Able to comprehend my commands however mild expressive aphasia noted Good strength of upper and lower extremities, patient did use his right shoulder girdle to stretch his right arm however has good bilateral handgrip Lower extremity with compression stockings, edema S1, S2 sinus rhythm no murmur appreciated Saturating well on room air no audible stridor or wheezing Abdomen soft with obesity Data : 06/28/21 12:56 06/28/21 12:56 A&P Assessment and plan (1) CVA (cerebral vascular accident): Status: Acute (2) Generalized weakness: Status: Acute (3) Dysphagia: Status: Acute (4) Chronic venous insufficiency of lower extremity: Status: Acute Additional A&P Information sub acute CVA Symptoms started last week around NIH 40 Tongue deviating towards right side, right facial droop, expressive aphasia Has good strength of upper and lower extremities Not a candidate of TPA because of the timeline Allow Permissive hypertension Check hemoglobin A1c levels PT/OT/speech evaluation MRI head in the morning, CTA head and neck, echo we will keep him on telemetry for now might need event monitor at the time of discharge No active signs of shingles, he has been on antiviral for shingles Lives with his , Disposition will be decided after PT evaluation We will start aspirin, high-dose statins, Full code pureed diet for now, sliding insulin scale PAD and venous stasis of legs with oedema, Continue compression stockings, No acute decompensation of shingles rash Daughter called and updated Attestations Medical Necessity Statement*: Anticipating DC within 48hrs Time Spent in Patient Care: Greater than 35 minutes Coding Level of Care Code Acute User Interface Engineer for Chg Fwd Diagnoses CVA (cerebral vascular accident) I63.9 Generalized weakness R53.1 Dysphagia R13.10 Chronic venous insufficiency of lower extremity I87.2
--- NOTE | 2021-06-28 14:00 | CT_ITS ---
WS: [id number] CT ANGIOGRAM CEREBRAL AND CAROTID ARTERIES HISTORY: CVA TECHNIQUE: CT angiogram is performed of the carotid and cerebral arteries. During arterial injection imaging is obtained from the skull vertex to the aortic arch in 1.25 mm imaging. Coronal and sagittal reformats are submitted. Additional multi planar reformats of the carotid and cerebral arteries are submitted, MIP imaging also reviewed. NASCET criteria utilized. [facility] CT [facility] at least one of these dose optimization techniques: automated exposure control; mA and/or kV adjust ment per patient size (includes targeted exams where dose is matched to clinical indication); or iter ative reconstruction. CONTRAST: Omnipaque 300; 95 mL IV. DLP: 2294.17 mGy.cm COMPARISON: 12/18/2019 Carotid Angiogram: Right carotid: Common carotid artery: Arises normally from the innominate artery. No significant plaque or stenosis. Internal carotid artery: Calcified plaque at the bifurcation with a small amount of intimal thickenin g. Stenosis less than 50%. External carotid artery: Patent. Left carotid: Common carotid artery: Arises normally from the aorta. No significant plaque or stenosis. Internal carotid artery: Increasing irregular calcified plaque at the bifurcation. Plaque is irregula r stenosis is only estimated near 50%. The artery is tortuous but patent. External carotid artery: Patent. Right vertebral artery: Unremarkable. Left vertebral artery: LEFT vertebral artery arises from the aortic arch and is very small caliber. I ntermittently visualized throughout its course but does appear to be patent. Similar to the prior sandra dy. Subclavian arteries: No stenosis or significant abnormality. Upper thorax: Normal. Thyroid gland: Normal. Osseous structures: Extensive degenerative hypertrophic bone formation throughout the cervical spine. CEREBRAL ANGIOGRAM: Intracranial vertebral arteries: Small caliber but patent distal LEFT vertebral artery. RIGHT vertebr al artery is dominant. Basilar artery: No significant stenosis or occlusion. No aneurysm. Intracranial Internal carotid arteries: Very ectatic LEFT carotid artery through the cavernous sinus with calcified plaque. 50% stenosis but no occlusions. Middle cerebral arteries: Normal. Anterior cerebral arteries and ACOM: Normal. Posterior cerebral arteries and PCOM's: Normal. Again noted are the arachnoid granulations in the RIGHT transverse sinus. CT/CT angio headneck* [id number] IMPRESSION: 1. Increasing calcified plaque at the LEFT cervical carotid bifurcation. Tortu ous atherosclerotic changes with stenosis near 50%. 2. Less than 50% stenosis RIGHT ICA. 3. Moderate atherosclerotic plaque within the cavernous carotid artery. LEFT c avernous carotid arteries tortuous and ectatic. Stenoses less than 50%. 4. No aneurysms.
--- NOTE | 2021-06-28 14:03 | PC.PHAR ---
pts daughter ashley verified pts medications
[2021-06-28 14:45] LABS: Estmated Average Glucose 134; Hemoglobin A1C 6.3 % (4.0-6.0)
[2021-06-28] MEDS: iodixanol 320 mg/mL 100mL Btl IV (14:51)
[2021-06-28] MEDS: cefTRIAXone 1,000 MG in sodium chloride 0.9% (plus) 50 ML 100 MG IV (16:00)
--- NOTE | 2021-06-28 16:46 | ECG_ITS ---
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 Measurements Intervals [place] Rate: 70 P: 24 ME: 203 QRS: -7 QRSD: 147 T: 30 QT: 445 QTc: 482 Interpretive Statements SINUS RHYTHM WITH OCCASIONAL VENTRICULAR PREMATURE COMPLEXES RIGHT BUNDLE BRANCH BLOCK [120+ ms QRS DURATION, UPRIGHT V1, 40+ ms S IN I/aVL/V4/V5/V6] Compared to ECG 06/28/2021 11:14:21 No significant changes Electronically Signed On 06-28-2021 23:07:38 CDT by Aura Barr M.D. [email or web address]
[2021-06-28] MEDS: enoxaparin 40 mg/0.4 mL Syringe SUBCUT (16:52)
[2021-06-28] MEDS: dilTIAZem ER (24HR) 120 mg Capsule PO (16:52)
[2021-06-28 17:37] LABS: Glucose Point of Care 121 mg/dL (70-110)
[2021-06-28 19:37] LABS: Troponin 5 6HR 25.06 ng/L (0-15); Troponin 5 6HR Delta 0.06 ng/L (0-12)
[2021-06-28 20:22] LABS: Glucose Point of Care 181 mg/dL (70-110)
[2021-06-28] MEDS: atorvastatin 40 mg Tablet 80 MG PO (20:35)
[2021-06-28] MEDS: zolpidem 5 mg Tablet 10 MG PO (22:04)
[2021-06-28] MEDS: lanolin oint 7 gm 1 APPLIC TOPICAL (22:12)
[2021-06-29 04:00] VITALS: BP 126/71; PULSE 86; RESP 18; TEMP 36.6; O2SAT 95
[2021-06-29 06:00] VITALS: PULSE 72
[2021-06-29 06:41] LABS: Basophils # 0.1 10^3/uL (0.0-0.1); Eosinophils # 0.4 10^3/uL (0.0-0.8); Eosinophils % 3.1 %; Hemoglobin 11.9 g/dL (11.7-16.6); Lymphocytes # 3.8 10^3/uL (0.8-4.8); Lymphocytes % 30.1 %; Mean Corpuscular HGB Conc 30.5 g/dL (30.0-36.0); Mean Corpuscular Hemoglobin 28.5 pg (28.0-34.0); Mean Corpuscular Volume 93.5 fl (80-94); Mean Platelet Volume 9.9 fL (7.4-10.4); Monocytes # 1.1 10^3/uL (0.2-0.9); Monocytes % 8.9 %; Neutrophils % 56.7 %; Nucleated Red Blood Cells % 0 %; Platelet Count 395 10^3/cmm (130-400); Red Blood Count 4.17 10^6/uL (4.1-5.3); Red Cell Distribution Width 14.3 % (12.1-15.1); White Blood Count 12.6 10^3/uL (4.0-10.0)
[2021-06-29 06:43] LABS: Glucose Point of Care 114 mg/dL (70-110)
[2021-06-29 07:17] LABS: Anion Gap 15.2 (5-19); Blood Urea Nitrogen 20 mg/dL (8-23); Calcium 8.8 mg/dL (8.5-10.5); Carbon Dioxide 23 mmol/L (22-29); Chloride 102 mmol/L (98-107); Glucose 110 mg/dL (65-115); Osmolality Calculated 285 mOsm/kg (285-295); Potassium 4.2 mmol/L (3.5-5.1); Sodium 136 mmol/L (136-145)
[2021-06-29 07:25] VITALS: BP 136/71; PULSE 70; RESP 18; TEMP 36.4; O2SAT 92
[2021-06-29 07:37] LABS: Glucose Point of Care 112 mg/dL (70-110)
[2021-06-29] MEDS: aspirin 81 mg EC Tablet PO (09:22)
--- NOTE | 2021-06-29 10:15 | MR_ITS ---
WS: [id number] MRI HEAD WITHOUT CONTRAST TECHNIQUE: Sagittal T1, T2 axial, T2 axial FLAIR, axial and coronal T1 images, axial susceptibility w eighted imaging, axial diffusion weighted images, and coronal T2 images were obtained. CLINICAL INFORMATION: CVA COMPARISON: CT head June 28, 2021 FINDINGS: No evidence of restricted diffusion to suggest acute ischemia. Ventricular system and basal cisterns are patent. Mild small vessel changes. Moderate parenchymal volume loss. Normal posterior fossa. Norm al vascular flow voids at the skull base. No extra-axial fluid collections. No evidence of mass or ma ss effect. Paranasal sinuses and mastoid air cells are well aerated. No hemosiderin on susceptibly weighted imag es. Normal optic chiasm and pituitary infundibulum. Moderate symmetric atrophy temporal lobes and hip pocampal formations. MR/MR head wo con* [id number] IMPRESSION: 1. No evidence of restricted diffusion to suggest acute ischemia. 2. Mild small vessel changes with moderate parenchymal volume loss. 3. Paranasal sinuses and mastoid air cells well aerated. 4. No hemosiderin on susceptibly weighted images. 5. Moderate symmetric atrophy temporal lobes and hippocampal formations. 6. No other acute findings.
--- NOTE | 2021-06-29 10:51 | PC.CHAP ---
Pastoral Care Encounter/Spiritual Assessment Type of Contact [] Declined hardware supplies sales representative visit [] Patient/Family/Request visit [] Outpatient visit [] Follow-up visit [] Physician referral [] Code/Alert [x] Routine visit [] Staff referral [] Actively dying [] Patient sleeping [] Family support [] [] Out of room [] Palliative care [] [x] Receiving care in room [] Pre-surgical visit [] Trauma [x] Long length of stay [] ICU visit [] Other: Relational/Emotional Strength [x] Patient feels connected with others/family/visitors/staff [] Distress [] Loneliness/isolation [] Abandonment Spirituality of Patient [x] Person of Elma [] Attends Protestant of their Elma [x] Believes in Prayer [] Reads Bible or Pentecostalism materials [] There are Spiritual issues to be addressed Finishing Pan Operator Interventions [x] Prayer [x] Active listening [x] Non-anxious presence [x] Spiritual/emotional support [] Crisis/trauma care [x] Spiritual counseling [] Bereavement support [] Provided bereavement packet [] Provided Bible/devotional materials [] Provided toy/stuffed animal, coloring book to patient or family member [] Provided Communion [] Anointing/[place] [] Salvation [x] Completed spiritual assessment [] Other: Impact on Illness or Injury [] Angry [] Fearful [x] Anxious [] Often cries [] Exhaustion [x] Unable to work [] Unable to attend orthodox [] Unable to walk/stand [] Unable to read [] Unable to drive [] Unable to eat/drink [] Unable to sleep [] Unable to be with family [] Patient intubated [] Other: Summary has strock sloured speach he is still able to communicate there will be some recovery of speach he has a good attitude feelung better doretha be going home soon Time spent with patient 10 mins
[2021-06-29 12:00] VITALS: BP 144/72; PULSE 72; RESP 18; TEMP 36.8; O2SAT 96
[2021-06-29 12:03] LABS: Glucose Point of Care 126 mg/dL (70-110)
--- NOTE | 2021-06-29 15:12 | PM.DCS ---
Discharge Providers Date of Admission: 06/28/21 13:44 Date of Discharge: June 29, 2021 Attending Provider at Admission: Quang Foreman MD Attending Provider at Discharge: Quang Foreman MD Primary Care Provider: CHEYENNE Cabrales Diagnoses at Discharge Discharge Diagnosis (1) CVA (cerebral vascular accident): Status: Acute (2) Generalized weakness: Status: Acute (3) Dysphagia: Status: Acute (4) Chronic venous insufficiency of lower extremity: Status: Acute Reason for Visit Reason for Visit: [facility] Hospital Course Hospital Course History of Present Illness Bud Ivy is a 86 year old male who presented with CC of weakness, not able to talk and walk. Daughter is stating that his symptoms started on last week when he became extremley weak and could not stand up from sitting position while eating. He also struggled to put bites in his mouth. He attributed his symptoms to the side effect of the medication that he was recently started on by the physician in [place]. His symptoms did not improve and got worse over the weekend. On Saturday he was taken to the [facility] ER where he was diagnosed with UTI. Today daughter brought him to the [facility] ER when he was struggling to speak properly, he was finding frogs in his home with torch light in his hand. In the ER his NIH was 4, Dr Canales recommended against Tpa and advised stroke workup. Pt is alert and oriented and has mild expressive aphasia. NIH 5, Pt did ask me for how long his speech will stay affected He is able to move all extremities, right tongue deviation. mild rt shoulder girdle weakness, good B/l hand patient access associate NSR on tele, BP stable, Normal cbc and bmp, CT head unremarkable. Hospital course Patient was admitted for management of strokelike symptoms, in the ER his NIH was 5 for tongue deviation to the right, mild weakness of right arm, right-sided facial droop, next morning his symptoms resolved he was very happy that he qualified for home health services as per PT evaluation, he was able to tolerate his diet, CT head unremarkable, had MRI unremarkable, CTA head and neck less than 50% of stenosis bilaterally and carotid vessels Would recommend outpatient follow-up with cardiology He will go home on dual antiplatelet therapy for 21 days and then continue aspirin and high-dose statins Normal sinus rhythm on telemetry Echo showed preserved ejection fraction, grade 1 diastolic dysfunction, Had MRI report MR/MR head wo con* [id number] IMPRESSION: 1. No evidence of restricted diffusion to suggest acute ischemia. 2. Mild small vessel changes with moderate parenchymal volume loss. 3. Paranasal sinuses and mastoid air cells well aerated. 4. No hemosiderin on susceptibly weighted images. 5. Moderate symmetric atrophy temporal lobes and hippocampal formations. 6. No other acute find Physical Exam Narrative: EXAM NARRATIVE: Pleasant male NIH 1 for mild right-sided facial droop Dysarthria improved Good strength of upper and lower extremities Able to maintain his gait S1, S2 Abdomen soft no Audible stridor or wheezing Saturating well on room air Discharge Data Data Completed and Pending: Completed Studies During Hospitalization Category Date Time Status CT angio headneck * [id number] Stat Cat Scan 06/28/21 14:[address] head wo con* [id number] Stat Cat Scan 06/28/21 10:43 Completed XR chest 1V [place] ble [id number] Stat Exams 06/28/21 10:43 Completed MR head wo con* [id number] Routine MRI 06/29/21 10:15 Completed CV. echo complete * [id number] Routine Ultrasound 06/29/21 16:18 Completed Pending at discharge Category Date Time Status Urine Culture Sta t Lab 06/28/21 13:07 Results Labs from last 24 hours 06/29/21 06/29/21 06/29/21 11:58 07:24 06:34 WBC RBC Hgb Hct MCV MCH MCHC RDW Plt Count MPV Neut % (Auto) Lymph % (Auto) [place] % (Auto) Eos % (Auto) Baso % (Auto) Neut # (Auto) Lymph # (Auto) [place] # (Auto) Eos # (Auto) Baso # (Auto) Nucleated RBC % (a uto) Nucleated RBCs # Sodium Potassium Chloride Carbon Dioxide Anion Gap BUN Creatinine GFR Calculation Glucose POC Glucose 126 H 112 H 114 H Calculated Osmolal ity Calcium Troponin T 120 Min campo Delta Troponin T Troponin T Hi Sens 6Hr Troponin T Hi Sens 6Hr Delta 06/29/21 06/29/21 06/28/21 06:21 06:21 20:15 WBC 12.6 H RBC 4.17 Hgb 11.9 Hct 39.0 L MCV 93.5 MCH 28.5 MCHC 30.5 RDW 14.3 Plt Count 395 MPV 9.9 Neut % (Auto) 56.7 Lymph % (Auto) 30.1 [place] % (Auto) 8.9 Eos % (Auto) 3.1 Baso % (Auto) 1.0 Neut # (Auto) 7.10 Lymph # (Auto) 3.8 [place] # (Auto) 1.1 H Eos # (Auto) 0.4 Baso # (Auto) 0.1 Nucleated RBC % (a uto) 0 Nucleated RBCs # 0.0 Sodium 136 Potassium 4.2 Chloride 102 Carbon Dioxide 23 Anion Gap 15.2 BUN 20 Creatinine 1.3 H GFR Calculation Not Reportable Glucose 110 POC Glucose 181 H Calculated Osmolal ity 285 Calcium 8.8 Troponin T 120 Min campo Delta Troponin T Troponin T Hi Sens 6Hr Troponin T Hi Sens 6Hr Delta 06/28/21 06/28/21 06/28/21 19:10 17:04 15:17 WBC RBC Hgb Hct MCV MCH MCHC RDW Plt Count MPV Neut % (Auto) Lymph % (Auto) [place] % (Auto) Eos % (Auto) Baso % (Auto) Neut # (Auto) Lymph # (Auto) [place] # (Auto) Eos # (Auto) Baso # (Auto) Nucleated RBC % (a uto) Nucleated RBCs # Sodium Potassium Chloride Carbon Dioxide Anion Gap BUN Creatinine GFR Calculation Glucose POC Glucose 121 H Calculated Osmolal ity Calcium Troponin T 120 Min campo 22.00 H Delta Troponin T -3.00 L Troponin T Hi Sens 6Hr 25.06 H Troponin T Hi Sens 6Hr Delta 0.06 Vitals: Last Vital Signs Temp 98.3 F 06/29/21 12:00 Pulse 72 06/29/21 12:00 Resp 18 06/29/21 12:00 BP 144/72 06/29/21 12:00 Pulse Ox 96 06/29/21 12:00 Discharge Plan Discharge Patient Disposition: Home Health Service Condition: Stable Prescriptions: New atorvastatin 40 mg Tablet 80 mg PO BEDTIME 30 Days Qty: 30 RF: 2 aspirin 81 mg Tablet,Delayed Release (Dr/Ec) 81 mg PO DAILY 30 Days Qty: 30 RF: 3 Plavix 75 mg tablet 75 mg PO DAILY Qty: 20 RF: 0 Continued glimepiride 1 mg tablet 1 mg PO QAM RF: 0 venlafaxine 37.5 mg tablet 37.5 mg PO BID RF: 0 (DME) cam boot See Rx Instructions .Route .MEDSUPPLY Qty: 1 RF: 0 diltiazem HCl 120 mg capsule,extended release 24hr 120 mg PO DAILY@17 RF: 0 hydralazine 10 mg tablet 10 mg PO TID RF: 0 amitriptyline 75 mg tablet 75 mg PO BEDTIME RF: 0 tolterodine 4 mg capsule,extended release 24hr 4 mg PO QPM RF: 0 lidocaine-prilocaine 2.5-2.5 % cream 1 applic topical . DIRECTED RF: 0 cephalexin 500 mg capsule 500 mg PO BID RF: 0 zolpidem 10 mg tablet 10 mg PO BEDTIME PRN (Reason: Insomnia) RF: 0 ondansetron 4 mg tablet,disintegrating 4 mg PO Q8H PRN (Reason: Nausea And Vomiting) RF: 0 fluticasone propionate 50 mcg/actuation [place],Suspension 2 spray INTRANASAL DAILY RF: 0 pregabalin 50 mg capsule 50 mg PO DAILY@21 RF: 0 Vitamin D3 25 mcg (1,000 unit) Tablet 25 mcg PO DAILY RF: 0 mupirocin 2 % ointment 1 applic topical BID PRN (Reason: unknown) RF: 0 oxybutynin chloride 15 mg tablet extended release 24hr 30 mg PO BEDTIME RF: 0 metformin 500 mg Tablet Extended Release 24 Hr 1,000 mg PO QPM RF: 0 Discontinued atorvastatin 20 mg tablet 20 mg PO DAILY RF: 0 alprazolam 0.5 mg tablet 0.5 mg PO BID PRN (Reason: Anxiety) RF: 0 meclizine 25 mg tablet 25 mg PO BID PRN (Reason: Dizziness) RF: 0 naproxen sodium [Aleve] 220 mg Tablet 220 - 440 mg PO Q12H PRN (Reason: Pain) RF: 0 Discharge Orders: Discharge Order (Routine); Ordered 06/29/21 Ordered By: Quang Foreman Referrals: Ghazal Segura FNP [Primary Care Provider] - 7-10 days Discharge Diet: Cardiac Discharge Activity: Increase activity as tolerated and As per PT/OT instructions Patient Instructions: Opioid Safety Discharge Attestations Time Spent in Discharge Care*: less than 30 min Quality Metrics Clinical Quality Measures During this hospital stay, did patient experience: None Coding Level of Care Code Acute Chg FW DC note Diagnoses CVA (cerebral vascular accident) I63.9 Generalized weakness R53.1 Dysphagia R13.10 Chronic venous insufficiency of lower extremity I87.2
[2021-06-29 15:49] VITALS: BP 184/80; PULSE 77; RESP 18; TEMP 36.9; O2SAT 98
--- NOTE | 2021-06-29 16:18 | USCV_ITS ---
Bud Ivy Age: 86 Gender: M : 1935 Exam Date: 06/29/2021 06:13 Ordering Phys: Quang Foreman MD Technologist: Dejon [place] [facility] [place]: CVA BP: 126 / 71 HR: 76 Rhythm: Sinus Technical Quality: Adequate MEASUREMENTS (Male / Female) Normal Values 2D ECHO LV Diastolic Diameter PLAX 2.8 cm 4.2 - 5.9 / 3.9 - 5.3 cm LV Systolic Diameter PLAX 2.4 cm IVS Diastolic Thickness 1.0 cm 0.6 - 1.0 / 0.6 - 0.9 cm IVS Systolic Thickness 1.7 cm LVPW Diastolic Thickness 1.4 cm 0.6 - 1.0 / 0.6 - 0.9 cm LVPW Systolic Thickness 1.5 cm LVOT Diameter 2.0 cm LV Ejection Fraction 2D Teich 11.0 % LV Ejection Fraction MOD 2C 62.0 % LV Ejection Fraction 2C AL 62.5 % LA Diameter 4.4 cm LA Width 4.2 cm LA Height 5.8 cm RA Width 3.7 cm RA Height 5.0 cm Aorta at Sinotubular Diameter 2.7 cm DOPPLER AV Peak Velocity 166.0 cm/s LVOT Peak Velocity 99.0 cm/s AV Area Cont Eq vti 2.3 cm squared AV Area Cont Eq pk 2.0 cm squared MV Area PHT 5.0 cm squared Mitral E to A Ratio 0.8 MV E' Velocity 55.0 cm/s Mitral E to MV E' Ratio 11.6 Mitral E to LV E' Lateral Ratio 10.5 Mitral E to LV E' Septal Ratio 13.0 TR Peak Velocity 185.7 cm/s TR Peak Gradient 13.8 mmHg TV Peak E Velocity 98.0 cm/s Right Atrial Pressure 3.0 mmHg Pulmonary Artery Systolic Pressu 16.8 mmHg FINDINGS Left Ventricle Normal left ventricular size, systolic function and increased wall thickness, with no regional wall motion abnormalities. Left ventricular ejection fraction is estimated at 65 %. Grade I diastolic dysfunction (abnormal relaxation filling pattern), normal to mildly elevated filling pressures. Right Ventricle Normal right ventricular size and systolic function. Right ventricular systolic pressure 16.8 mmHg. Right Atrium Normal right atrial size. Left Atrium Left atrium not well visualized. Mitral Valve Mild mitral annular calcification. Mildly thickened mitral valve. No mitral valve stenosis. No mitral valve regurgitation. Aortic Valve Mildly thickened and calcified probably trileaflet aortic valve. Aortic valve sclerosis. No aortic valve stenosis. No aortic valve regurgitation. Tricuspid Valve Structurally normal tricuspid valve. Pulmonic Valve Pulmonic valve not well visualized. No pulmonary valve stenosis. Pericardium No pericardial effusion. Aorta Normal size aortic root and proximal ascending aorta. CONCLUSIONS 1. Normal left ventricular size, systolic function and increased wall thickness, with no regional wall motion abnormalities. Left ventricular ejection fraction is estimated at 65 %. Grade I diastolic dysfunction (abnormal relaxation filling pattern), normal to mildly elevated filling pressures. 2. Normal right ventricular size and systolic function. 3. Aortic valve sclerosis. 4. Mild mitral annular calcification. 5. No prior similar studies to compare. Teagan Andersen MD (Electronically Signed) Final Date: 29 June 2021 13:09 S
[2021-06-29 16:24] VITALS: BP 184/80; PULSE 77; RESP 18; TEMP 36.9; O2SAT 98
--- NOTE | 2021-06-30 09:23 | PC.SOCIAL ---
discharge follow up call made, spoke with pts . she reports pt is doing great, i can't even tell he had a stroke patient picked up new medications from the pharmacy and he is taking as prescribed. discussed with patients the medications that need to be dc'd, wrote those medications down and will make sure he doesn't take. is aware of follow up appointment on 07-04 with christo banegas. discussed with [facility] for in home services and she will call them. also let her know that [facility] would be coming out today to change the dressings on patients leg.
== END 2021-06-29 16:25 | disposition home health service (06) ==
LOC: ER 13:41 → MEDSURG 15:27
PROVIDERS: Physician Assistant; Admitting Provider Internal Medicine; Emergency Provider Emergency Medicine; PCP Registered Nurse; Visit Provider Internal Medicine
DX: I63.9 Cerebral infarction, unspecified (principal); R29.704 NIHSS score 4; R53.1 Weakness; R13.10 Dysphagia, unspecified; I87.2 Venous insufficiency (chronic) (peripheral); F41.9 Anxiety disorder, unspecified; F32.9 Major depressive disorder, single episode, unspecified; E11.42 Type 2 diabetes mellitus with diabetic polyneuropathy
CPT/HCPCS: 36415; 36416; 70450; 70496; 70498; 70551; 71045; 80048; 80053; 80306; 81001; 81003; 82962; 83036; 83605; 84443; 84484; 85025; 85610; 85730; 87086; 92523; 92610; 93005; 93306; 96365; 96372; 97116; 97161; 97165; 99285; G0378; J0696; J1650; J1815; Q9967

== ENCOUNTER → 2021-08-22 13:46 | Outpatient (BNVA) | payer MEDICARE, OTHER, SELFPAY | PROVIDERS: PCP Registered Nurse; Referring Provider Registered Nurse; Visit Provider Specialist | DX: R01.1 Cardiac murmur, unspecified (principal); I25.10 Atherosclerotic heart disease of native coronary artery without angina pectoris; F03.90 Unspecified dementia, unspecified severity, without behavioral disturbance, psychotic disturbance, mood disturbance, and anxiety; I10 Essential (primary) hypertension; E11.9 Type 2 diabetes mellitus without complications; Z79.84 Long term (current) use of oral hypoglycemic drugs | CPT/HCPCS: 99205 ==

== ENCOUNTER → 2022-07-11 12:39 | Outpatient (BNVA) | payer MEDICARE, OTHER, SELFPAY | PROVIDERS: PCP Registered Nurse; Visit Provider Nurse Practitioner Family | DX: R39.9 Unspecified symptoms and signs involving the genitourinary system (principal); R97.20 Elevated prostate specific antigen [PSA]; N48.1 Balanitis | CPT/HCPCS: 99213 ==